=== PATIENT | female | born 1945 | race Caucasian/White ===

== ENCOUNTER 2017-12-10 18:02 | Emergency (ER) | payer BC ==
[2017-12-10] MEDS ORDERED: HYDROCODONE/APAP 10/325 TAB ONE (19:04)
--- NOTE | 2017-12-10 20:13 | ER ---
Nurse's Notes [facility] Name: Mariana Flor Age: 72 yrs Sex: Female : 1945 Arrival Date: 12/10/2017 Time: 18:06 Bed 24 Private MD: Speedy Krause H Diagnosis: Pain in right upper arm-muscloskeletal pain Presentation: 12/10 18:15 Presenting complaint: Patient states: " I fell about 4 months ago in the tub and hurt ph my arm. It wasn't broken but it still gives me pain sometimes. It really started hurting bad yesterday. Usually I take Tylenol 3 for the pain but it hasn't helped at all today." Pt reports pain in R upper arm. Transition of care: patient was not received from another setting of care. Onset of symptoms was December 10, 2017. Care prior to arrival: None. 18:15 Method Of Arrival: Ambulatory ph 18:15 Acuity: YUDELKA 4 ph Historical: - Allergies: 18:21 Compazine; ph 18:21 Latex, Natural Rubber; ph 18:21 Levofloxacin; ph 18:21 Phenergan; ph 18:21 Toradol; ph - Home Meds: 18:21 amoxicillin 875 mg Oral tab 1 tab every 12 hours [Active]; Bumex 2 MG Oral daily ph [Active]; Effient 5 mg Oral tab once daily [Active]; Xanax 2 mg Oral tab 1 tab PRN [Active]; - PMHx: 18:21 Anxiety; CAD; Hyperlipidemia; Migraines; ph - PSHx: 18:21 Hysterectomy; Left Knee; Heart stents; ph - Immunization history:: Adult Immunizations unknown. - Social history:: Smoking status: Patient/guardian denies using tobacco. Screenin:39 Abuse screen: Denies threats or abuse. Denies injuries from another. Nutritional kr2 screening: No deficits noted. Tuberculosis screening: No symptoms or risk factors identified. Fall Risk None identified. Assessment: 18:35 General: Appears in no apparent distress. uncomfortable, well groomed, well developed, kr2 well nourished, Behavior is calm, cooperative, appropriate for age. Pain: Complains of pain in right shoulder Pain radiates to right arm Pain currently is 10 out of 10 on a pain scale. Quality of pain is described as aching. Neuro: Level of Consciousness is awake, alert, obeys commands, Oriented to person, place, time, situation, Appropriate for age. Cardiovascular: Denies chest pain, Capillary refill < 3 seconds in bilateral fingers Patient's skin is warm and dry. Respiratory: Airway is patent Respiratory effort is even, unlabored, Respiratory pattern is regular, symmetrical. GI: Abdomen is flat, non-distended. GI: Reports nausea. : No signs and/or symptoms were reported regarding the genitourinary system. EENT: Oral mucosa is moist. Derm: Skin is intact, is healthy with good turgor, Skin is pink, warm \\T\\ dry. Musculoskeletal: Circulation, motion, and sensation intact. Range of motion: intact in right shoulder. 20:16 Reassessment: Patient appears in no apparent distress at this time. Patient and/or kr2 family updated on plan of care and expected duration. Pain level reassessed. Patient is alert, oriented x 3, equal unlabored respirations, skin warm/dry/pink. Patient states feeling better. Vital Signs: 18:18 BP 152 / 83; Pulse 80; Resp 22; Temp 98.1; Pulse Ox 98% on R/A; Weight 62.6 kg; Height ph 5 ft. 2 in. (157.48 cm); Pain 10/10; 20:16 BP 125 / 53; Pulse 78; Resp 15; Pulse Ox 99% on R/A; kr2 18:18 Body Mass Index 25.24 (62.60 kg, 157.48 cm) ph ED Course: 18:06 Patient arrived in ED. as 18:06 Speedy Krause DO is Private Physician. as 18:18 Triage completed. ph 18:19 Arm band placed on. ph 18:23 Kylah Benavides, JAYRO is Primary Nurse. kr2 18:25 Richmond Ness NP is PHCP. pm1 18:25 Amilcar Owens MD is Attending Physician. pm1 18:39 Patient has correct armband on for positive identification. Bed in low position. Call kr2 light in reach. Side rails up X2. Pulse ox on. NIBP on. Door closed. Warm blanket given. Head of bed elevated. 20:10 Kevin Randall MD is Referral Physician. pm1 20:17 No provider procedures requiring assistance completed. Patient did not have IV access kr2 during this emergency room visit. Administered Medications: 18:46 Drug: [place] 10 mg-325 mg 1 tabs Route: PO; kr2 20:15 Follow up: Response: No adverse reaction; Pain is decreased kr2 Outcome: 20:12 Discharge ordered by MD. pm1 20:17 Discharged to home ambulatory, with family. kr2 20:17 Condition: good 20:17 Discharge instructions given to patient, family, Instructed on discharge instructions, follow up and referral plans. medication usage, Demonstrated understanding of instructions, follow-up care, medications, Prescriptions given X 2. 20:17 Patient left the ED. kr2 Signatures: Linh Simmons Patricia, RN RN ph Richmond Ness NP PLUMBING ENGINEER pm1 Kylah Benavides RN RN kr2 Corrections: (The following items were deleted from the chart) 20:18 20:18 Response: No adverse reaction; Pain is decreased kr2 kr2
--- NOTE | 2017-12-10 20:13 | EDPHYS ---
Physician Documentation [facility] Name: Mariana Flor Age: 72 yrs Sex: Female : 1945 Arrival Date: 12/10/2017 Time: 18:06 Bed 24 Private MD: Speedy Krause H ED Physician Amilcar Owens HPI: 12/10 20:00 This 72 yrs old Female presents to ER via Ambulatory with complaints of Right pm1 Arm Pain. 20:00 The patient or guardian complains of pain. right upper arm. Context: The problem was pm1 sustained at home, resulted from a fall, The patient reports no decreased range of motion. The patient reports no obvious deformity. Onset: The symptoms/episode began/occurred 10/18/2017. Modifying factors: the symptoms are alleviated by tylenol #3. Modifying factors: The symptoms are aggravated by movement. Associated signs and symptoms: Pertinent negatives: chest pain, neck pain, shortness of breath, tingling, paresthesia. Severity of symptoms: in the emergency department the symptoms are actually worse. Treatment prior to arrival includes: no previous treatment. Patient was admitted for a fall on 10/18/2017 for syncope and collapse. Patient fell in the bathtub and injured her right arm and shoulder at that time. During hospitalization and ER visit, patient had a right shoulder xray and CT head and neck performed. Patient without any injury since then. Patient has had continued pain to her right arm in the same location since the injury and has been taking Tylenol #3 for the pain. Patient does not have anymore Tylenol #3. Historical: - Allergies: 18:21 Compazine; ph 18:21 Latex, Natural Rubber; ph 18:21 Levofloxacin; ph 18:21 Phenergan; ph 18:21 Toradol; ph - Home Meds: 18:21 amoxicillin 875 mg Oral tab 1 tab every 12 hours [Active]; Bumex 2 MG Oral daily ph [Active]; Effient 5 mg Oral tab once daily [Active]; Xanax 2 mg Oral tab 1 tab PRN [Active]; - PMHx: 18:21 Anxiety; CAD; Hyperlipidemia; Migraines; ph - PSHx: 18:21 Hysterectomy; Left Knee; Heart stents; ph - Immunization history:: Adult Immunizations unknown. - Social history:: Smoking status: Patient/guardian denies using tobacco. ROS: 20:00 Constitutional: Negative for fever, chills, and weight loss, Eyes: Negative for injury, pm1 pain, redness, and discharge, ENT: Negative for injury, pain, and discharge, Neck: Negative for injury, pain, and swelling, Cardiovascular: Negative for chest pain, palpitations, and edema, Respiratory: Negative for shortness of breath, cough, wheezing, and pleuritic chest pain, Abdomen/GI: Negative for abdominal pain, nausea, vomiting, diarrhea, and constipation, Back: Negative for injury and pain, : Negative for injury, bleeding, discharge, and swelling. 20:00 Skin: Negative for injury, rash, and discoloration, Neuro: Negative for headache, weakness, numbness, tingling, and seizure. 20:00 MS/extremity: Positive for pain, of the lateral aspect of right shoulder. Exam: 20:00 Constitutional: This is a well developed, well nourished patient who is awake, alert, pm1 and in no acute distress. Head/Face: Normocephalic, atraumatic. Chest/axilla: Normal chest wall appearance and motion. Nontender with no deformity. No lesions are appreciated. Cardiovascular: Regular rate and rhythm with a normal S1 and S2. No gallops, murmurs, or rubs. Normal PMI, no JVD. No pulse deficits. Respiratory: Lungs have equal breath sounds bilaterally, clear to auscultation and percussion. No rales, rhonchi or wheezes noted. No increased work of breathing, no retractions or nasal flaring. Abdomen/GI: Soft, non-tender, with normal bowel sounds. No distension or tympany. No guarding or rebound. No evidence of tenderness throughout. Back: No spinal tenderness. No costovertebral tenderness. Full range of motion. Skin: Warm, dry with normal turgor. Normal color with no rashes, no lesions, and no evidence of cellulitis. 20:00 Musculoskeletal/extremity: Extremities: grossly normal except: noted in the Deltoid tubercle of humerus: tenderness, There is no evidence of decreased ROM, deformity, ecchymosis, erythema, swelling, ROM: full active range of motion, in the right upper extremity, full passive range of motion, in the right upper extremity, Circulation is intact in all extremities. Vital Signs: 18:18 BP 152 / 83; Pulse 80; Resp 22; Temp 98.1; Pulse Ox 98% on R/A; Weight 62.6 kg; Height ph 5 ft. 2 in. (157.48 cm); Pain 10/10; 20:16 BP 125 / 53; Pulse 78; Resp 15; Pulse Ox 99% on R/A; kr2 18:18 Body Mass Index 25.24 (62.60 kg, 157.48 cm) ph MDM: 18:26 Patient medically screened. pm1 20:03 ED course: Improvement in pain with hydrocodone. 4/10 pain. pm1 20:09 Data reviewed: vital signs. Data interpreted: Pulse oximetry: on room air is 98 %. pm1 Interpretation: normal. Counseling: I had a detailed discussion with the patient and/or guardian regarding: the historical points, exam findings, and any diagnostic results supporting the discharge/admit diagnosis, the need for outpatient follow up, for definitive care, a orthopedic surgeon, to return to the emergency department if symptoms worsen or persist or if there are any questions or concerns that arise at home. Administered Medications: 18:46 Drug: [place] 10 mg-325 mg 1 tabs Route: PO; kr2 20:15 Follow up: Response: No adverse reaction; Pain is decreased kr2 Disposition: 12/10/17 20:12 Discharged to Home. Impression: Pain in right upper arm - muscloskeletal pain. - Condition is Stable. - Discharge Instructions: Musculoskeletal Pain. - Prescriptions for Tylenol- Codeine #3 300-30 mg Oral Tablet - take 1 tablet by ORAL route every 6 hours As needed; 20 tablet. Zofran 4 mg Oral Tablet - take 1 tablet by ORAL route every 12 hours As needed; 20 tablet. - Medication Reconciliation Form, Thank You Letter, Prescription Opioid Use form. - Follow up: Emergency Department; When: As needed; Reason: Worsening of condition. Follow up: Kevin Randall MD; When: 2 - 3 days; Reason: Recheck today's complaints, Continuance of care, Re-evaluation by your physician. - Problem is new. - Symptoms have improved. Addendum: 12/14/2017 07:27 Co-signature as Attending Physician, Amilcar Owens MD. g s Signatures: Angelica Paul RN RN ph Richmond Ness SHACKLER SHACKLER pm1 Amilcar Owens MD MD gs Kylah Benavides, JAYRO RN kr2
[2017-12-10 20:21] VITALS: TEMP 98.1
[2017-12-10 20:22] VITALS: BP 125/53; O2SAT 99
== END 2017-12-10 20:17 | disposition home or self-care (01) ==
LOC: ER 18:02
DX: M79.1 Myalgia (principal); W18.2XXA Fall in (into) shower or empty bathtub, initial encounter; Y93.E1 Activity, personal bathing and showering; Y92.002 Bathroom of unspecified non-institutional (private) residence as the place of occurrence of the external cause; Z88.5 Allergy status to narcotic agent; Z88.8 Allergy status to other drugs, medicaments and biological substances; Z88.1 Allergy status to other antibiotic agents; Z95.818 Presence of other cardiac implants and grafts; Z91.040 Latex allergy status; E78.5 Hyperlipidemia, unspecified; I25.10 Atherosclerotic heart disease of native coronary artery without angina pectoris; F41.9 Anxiety disorder, unspecified
CPT/HCPCS: 99283

== ENCOUNTER 2017-12-16 17:33 | Emergency (ER) | payer BC ==
[2017-12-16] MEDS ORDERED: predniSONE 20 MG TAB ONE (18:23)
[2017-12-16] MEDS ORDERED: DIPHENHYDRAMINE 25 MG TAB/CAP ONE (18:23)
--- NOTE | 2017-12-16 18:27 | RAD REPORT ---
EXAM DESCRIPTION: CT - Head Brain Wo Cont - 12/16/2017 6:15 pm CLINICAL HISTORY: Fall, head injury COMPARISON: 06/25/2017, 06/19/2016 TECHNIQUE: All CT scans are performed using dose optimization technique as appropriate and may inclu de automated exposure control or mA/KV adjustment according to patient size. FINDINGS: No intracranial hemorrhage, hydrocephalus or extra-axial fluid collection.No areas of brai n edema or evidence of midline shift. The paranasal sinuses and mastoids are clear. The calvarium is intact. IMPRESSION: No acute intracranial abnormality.
--- NOTE | 2017-12-16 18:32 | EDPHYS ---
Physician Documentation [facility] Name: Mariana Flor Age: 72 yrs Sex: Female : 1945 Arrival Date: 12/16/2017 Time: 17:36 Bed 6 Private MD: Speedy Krause H ED Physician Amilcar Owens HPI: 12/16 18:26 This 72 yrs old Female presents to ER via Wheelchair with complaints of Fall gs Injury. 18:26 Details of fall: The patient fell from seated position, out of a chair. Onset: The gs symptoms/episode began/occurred 4 day(s) ago. Associated injuries: The patient sustained injury to the head, abrasion, anterior aspect of right shoulder. Severity of symptoms: At their worst the symptoms were moderate, in the emergency department the symptoms are unchanged. The patient has experienced similar episodes in the past, multiple times, chronically. The patient has been recently seen by a physician: the patient's primary care provider, Dr. Krause with similar presenting complaints, was given a prescription for pain medications, 3rd encounter this week, pt has multiple falls and concern for pain med abuse. Historical: - Allergies: 17:39 Compazine; la1 17:39 Latex, Natural Rubber; la1 17:39 Levofloxacin; la1 17:39 Phenergan; la1 17:39 Toradol; la1 - PMHx: 17:39 Anxiety; CAD; Hyperlipidemia; Migraines; la1 - Immunization history:: Adult Immunizations up to date. - Social history:: Smoking status: Patient/guardian denies using tobacco. ROS: 18:26 Skin: Positive for rash, has rash face upper chest pinkish color nontender no fever, gs says started after using skin lotion. 18:26 All other systems are negative. Exam: 18:26 Head/Face: Normocephalic, atraumatic. ENT: Nares patent. No nasal discharge, no gs septal abnormalities noted. Tympanic membranes are normal and external auditory canals are clear. Oropharynx with no redness, swelling, or masses, exudates, or evidence of obstruction, uvula midline. Mucous membranes moist. 18:26 Neck: Trachea midline, no thyromegaly or masses palpated, and no cervical lymphadenopathy. Supple, full range of motion without nuchal rigidity, or vertebral point tenderness. No Meningismus. Chest/axilla: Normal chest wall appearance and motion. Nontender with no deformity. No lesions are appreciated. Cardiovascular: Regular rate and rhythm with a normal S1 and S2. No gallops, murmurs, or rubs. Normal PMI, no JVD. No pulse deficits. Respiratory: Lungs have equal breath sounds bilaterally, clear to auscultation and percussion. No rales, rhonchi or wheezes noted. No increased work of breathing, no retractions or nasal flaring. Abdomen/GI: Soft, non-tender, with normal bowel sounds. No distension or tympany. No guarding or rebound. No evidence of tenderness throughout. Back: No spinal tenderness. No costovertebral tenderness. Full range of motion. MS/ Extremity: Pulses equal, no cyanosis. Neurovascular intact. Full, normal range of motion. Neuro: Awake and alert, GCS 15, oriented to person, place, time, and situation. Cranial nerves II-XII grossly intact. Motor strength 5/5 in all extremities. Sensory grossly intact. Cerebellar exam normal. Normal gait. 18:26 Constitutional: The patient appears in no acute distress, alert. 18:26 Head/face: Noted is abrasion(s), that are mild, of the forehead. 18:26 Eyes: Pupils: constricted, bilaterally. 18:26 Skin: rash a moderate rash is noted, rash can be described as erythematous, macular, on the right supraclavicular area, right clavicle, left supraclavicular area, left clavicle, anterior aspect of right upper chest and anterior aspect of left upper chest. 18:26 Musculoskeletal/extremity: Joints: the right shoulder displays full rom no dislocation.gs Vital Signs: 17:39 BP 165 / 61; Pulse 83; Resp 16; Temp 98.4(TE); Pulse Ox 98% on R/A; Weight 64.86 kg; la1 Height 5 ft. 2 in. (157.48 cm); 18:45 BP 147 / 68; Pulse 80; Resp 14 S; Pulse Ox 98% on R/A; jl7 17:39 Body Mass Index 26.15 (64.86 kg, 157.48 cm) la1 MDM: 17:54 Patient medically screened. 18:26 Differential diagnosis: closed head injury, contusion, allergic reaction. Data gs reviewed: vital signs, nurses notes. 12/16 17:55 Order name: CT Head Brain wo Cont; Complete Time: 18:32 gs Administered Medications: 18:07 Drug: predniSONE 20 mg Route: PO; [facility] 19:00 Follow up: Response: No adverse reaction; No change in condition jl7 18:07 Drug: Benadryl 25 mg Route: PO; jl7 19:00 Follow up: Response: No adverse reaction; No change in condition 7 Disposition: 12/16/17 18:31 Discharged to Home. Impression: Contusion of other part of head, Allergic contact dermatitis. - Condition is Stable. - Discharge Instructions: Head Injury, Adult, Head Injury, Pediatric. - Prescriptions for Prednisone 20 mg Oral Tablet - take 1 tablet by ORAL route once daily for 5 days; 5 tablet. Zyrtec 10 mg Oral Tablet - take 1 tablet by ORAL route once daily As needed; 20 tablet. - Medication Reconciliation Form, Thank You Letter, Antibiotic Education, Prescription Opioid Use form. - Follow up: Speedy Krause DO; When: 1 - 2 days; Reason: Re-evaluation by your physician. Signatures: Dispatcher [employer] EDBert Tamez RN RN la1 Lico Welch RN RN jl7 Amilcar Owens MD MD
--- NOTE | 2017-12-16 18:32 | ER ---
Nurse's Notes [facility] Name: Mariana Flor Age: 72 yrs Sex: Female : 1945 Arrival Date: 12/16/2017 Time: 17:36 Bed 6 Private MD: Speedy Krause H Diagnosis: Contusion of other part of head;Allergic contact dermatitis Presentation: 12/16 17:37 Presenting complaint: Patient states: On Monday night I fell off a barstool in my la1 kitchen and hurt my right shoulder and my head. I saw my PCP on and he gave me some pain medicine. Pt denies LOC. Transition of care: patient was not received from another setting of care. Onset of symptoms was December 16, 2017. Care prior to arrival: None. 17:37 Method Of Arrival: Wheelchair la1 17:37 Acuity: YUDELKA 3 la1 Historical: - Allergies: 17:39 Compazine; la1 17:39 Latex, Natural Rubber; la1 17:39 Levofloxacin; la1 17:39 Phenergan; la1 17:39 Toradol; la1 - PMHx: 17:39 Anxiety; CAD; Hyperlipidemia; Migraines; la1 - Immunization history:: Adult Immunizations up to date. - Social history:: Smoking status: Patient/guardian denies using tobacco. Screenin:45 Abuse screen: Denies threats or abuse. Nutritional screening: No deficits noted. jl7 Tuberculosis screening: No symptoms or risk factors identified. Fall Risk None identified. Assessment: 17:45 General: Appears in no apparent distress. uncomfortable, Behavior is cooperative, jl7 crying. Pain: Complains of pain in right shoulder Pain does not radiate. Pain currently is 9 out of 10 on a pain scale. Quality of pain is described as aching, Pain began 2-3 days ago. Is continuous. Neuro: Level of Consciousness is awake, alert, obeys commands, Oriented to person, place, time, situation. Cardiovascular: Patient's skin is warm and dry. Respiratory: Airway is patent Respiratory effort is even, unlabored, Respiratory pattern is regular, symmetrical. Derm: pt's skin from right side of neck down, across chest to bilateral breast noted to be red and hot to touch. Pt reports putting hydrocortisone cream on the area. 17:54 Reassessment: Provider at bedside discussing plan of care. ae1 18:45 Reassessment: No changes from previously documented assessment. Patient and/or family jl7 updated on plan of care and expected duration. Pain level reassessed. Patient is alert, oriented x 3, equal unlabored respirations, skin warm/dry/pink. Patient states symptoms have not improved. Vital Signs: 17:39 BP 165 / 61; Pulse 83; Resp 16; Temp 98.4(TE); Pulse Ox 98% on R/A; Weight 64.86 kg; la1 Height 5 ft. 2 in. (157.48 cm); 18:45 BP 147 / 68; Pulse 80; Resp 14 S; Pulse Ox 98% on R/A; jl7 17:39 Body Mass Index 26.15 (64.86 kg, 157.48 cm) la1 ED Course: 17:36 Patient arrived in ED. mr 17:36 Speedy Krause DO is Private Physician. mr 17:38 Triage completed. la1 17:39 Arm band placed on left wrist. la1 17:42 Amilcar Owens MD is Attending Physician. gs 17:45 Patient has correct armband on for positive identification. Bed in low position. Call jl7 light in reach. Side rails up X 1. Pulse ox on. NIBP on. 17:56 Lico Welch, JAYRO is Primary Nurse. jl7 18:15 CT Head Brain wo Cont In Process Unspecified. EDMS 18:16 CT completed. Patient tolerated procedure well. Patient moved back from CT. bq 18:31 Speedy Krause DO is Referral Physician. gs 19:20 No provider procedures requiring assistance completed. Patient did not have IV access jl7 during this emergency room visit. Administered Medications: 18:07 Drug: predniSONE 20 mg Route: PO; jl7 19:00 Follow up: Response: No adverse reaction; No change in condition jl7 18:07 Drug: Benadryl 25 mg Route: PO; jl7 19:00 Follow up: Response: No adverse reaction; No change in condition jl7 Outcome: 18:31 Discharge ordered by . gs 19:20 Discharged to home ambulatory. jl7 19:20 Condition: stable 19:20 Discharge instructions given to patient, Instructed on discharge instructions, follow up and referral plans. medication usage, Demonstrated understanding of instructions, follow-up care, medications, Prescriptions given X 2. 19:21 Patient left the ED. jl7 Signatures: Dispatcher [employer] RICO CastilloEstephania RogerconnorMaria T Lee RN RN la1 Marco Antonio Shukla RN RN ae1 Lico Welch RN RN jl7 Amilcar Owens MD MD
[2017-12-16 19:24] VITALS: TEMP 98.4; O2SAT 98
[2017-12-16 19:26] VITALS: BP 147/68
== END 2017-12-16 19:21 | disposition home or self-care (01) ==
LOC: ER 17:33
DX: S00.83XA Contusion of other part of head, initial encounter (principal); L23.9 Allergic contact dermatitis, unspecified cause; W07.XXXA Fall from chair, initial encounter; Y93.9 Activity, unspecified; Y92.009 Unspecified place in unspecified non-institutional (private) residence as the place of occurrence of the external cause; Z88.1 Allergy status to other antibiotic agents; Z88.5 Allergy status to narcotic agent; Z88.8 Allergy status to other drugs, medicaments and biological substances; Z91.040 Latex allergy status
CPT/HCPCS: 70450; 99284; J7512

== ENCOUNTER 2018-03-04 21:54 | Emergency (ER) | payer BC ==
--- NOTE | 2018-03-04 23:30 | ER ---
Nurse's Notes [facility] Name: Mariana Flor Age: 72 yrs Sex: Female : 1945 Arrival Date: 03/04/2018 Time: 21:57 Bed 19 Private MD: Speedy Krause H Diagnosis: Acute headache. S/P Fall Presentation: 03/04 22:20 Presenting complaint: Patient states: pt has been having a headache for the last 4 tl3 days, has a hx of migraines, unable to sleep for the last 2 days, fell off of her bed and hit the right side of her forehead on the carpet, no abrasion or hematoma noted( pt has area in center of forehead that has rash, being treated). Transition of care: patient was not received from another setting of care. Onset of symptoms was March 01, 2018. Risk Assessment: Do you want to hurt yourself or someone else?. Initial Sepsis Screen: Does the patient meet any 2 criteria? No. Patient's initial sepsis screen is negative. Does the patient have a suspected source of infection? No. Patient's initial sepsis screen is negative. Care prior to arrival: Medication(s) given: Tylenol. 22:20 Method Of Arrival: Wheelchair tl3 22:20 Acuity: YUDELKA 3 tl3 Triage Assessment: 22:25 General: Appears uncomfortable, slender, well groomed, well developed, well nourished, tl3 Behavior is calm, cooperative, appropriate for age. Pain: Complains of pain in headache Pain currently is 10 out of 10 on a pain scale. Historical: - Allergies: 22:25 Compazine; tl3 22:25 Latex, Natural Rubber; tl3 22:25 Levofloxacin; tl3 22:25 Phenergan; tl3 22:25 Toradol; tl3 - Home Meds: 22:25 Effient 5 mg Oral tab once daily [Active]; Bumex 2 MG Oral daily [Active]; Xanax 2 mg tl3 Oral tab 1 tab PRN [Active]; - Immunization history:: Adult Immunizations up to date. - Social history:: Smoking status: Patient/guardian denies using tobacco, never smoked. - Ebola Screening: : Patient denies travel to an Ebola-affected area in the 21 days before illness onset. Screenin:51 Abuse screen: Denies threats or abuse. Denies injuries from another. Nutritional bp screening: No deficits noted. Tuberculosis screening: No symptoms or risk factors identified. Fall Risk Fall in past 12 months (25 points). No secondary diagnosis (0 pts). No IV (0 pts). Ambulatory Aid- None/Bed Rest/Nurse Assist (0 pts). Gait- Normal/Bed Rest/Wheelchair (0 pts) Mental Status- Oriented to own ability (0 pts). Total [place] Fall Scale indicates Low Risk Score (25-44 pts). Fall prevention measures have been instituted. Side Rails Up X 2 Placed close to Nursing Station Frequent Obs/Assesments occuring Family Present and informed to notify staff if they need to leave bedside As available Patient and Family Educated on Fall Prevention Program and strategies. Assessment: 22:50 General: PER PATIENT "I'M REALLY NERVOUS. I CALLED MY DOCTOR TO GET SOME TYLENOL 3 AND bp HE WOULDN'T CALL IT IN".. Pain: Complains of pain in head. Neuro: Level of Consciousness is awake, alert, obeys commands, Oriented to person, place, time, situation, Appropriate for age. Cardiovascular: No deficits noted. Respiratory: Airway is patent Respiratory effort is even, unlabored, Respiratory pattern is regular, symmetrical. GI: No deficits noted. : No deficits noted. EENT: No deficits noted. Derm: No deficits noted. Musculoskeletal: Circulation, motion, and sensation intact. Range of motion: intact in all extremities. Vital Signs: 22:25 BP 133 / 74; Pulse 81; Resp 18; Temp 98.0; Pulse Ox 100% on R/A; Weight 64.41 kg; tl3 Height 5 ft. 2 in. (157.48 cm); 23:50 BP 127 / 81; Pulse 71; Resp 16; Pulse Ox 100% ; bp 22:25 Body Mass Index 25.97 (64.41 kg, 157.48 cm) tl3 ED Course: 21:57 Patient arrived in ED. es 21:58 Speedy Krause DO is Private Physician. es 22:23 Triage completed. tl3 22:25 Arm band placed on right wrist. tl3 22:41 Rosie Cerna, RN is Primary Nurse. tl3 22:51 Patient has correct armband on for positive identification. Bed in low position. Call bp light in reach. Side rails up X2. Adult w/ patient. 23:18 Jaspreet Dickinson MD is Attending Physician. pkl 23:29 Speedy Krause DO is Referral Physician. pkl 23:51 No provider procedures requiring assistance completed. Patient did not have IV access bp during this emergency room visit. Administered Medications: 23:34 Drug: Demerol 50 mg Route: IM; Site: left gluteus; bp 23:50 Follow up: Response: Marked relief of symptoms bp 23:34 Drug: Zofran 4 mg Route: IM; Site: left gluteus; bp 23:49 Follow up: Response: Marked relief of symptoms bp Outcome: 23:30 Discharge ordered by . pkl 23:51 Discharged to home ambulatory, with family. bp 23:51 Condition: stable 23:51 Discharge instructions given to patient, Instructed on discharge instructions, follow up and referral plans. medication usage, Demonstrated understanding of instructions, follow-up care, medications, Prescriptions given X 1. 23:52 Patient left the ED. bp Signatures: Jaspreet Dickinson MD MD pkl Fina Gutierrez Brian, RN RN bp Rosie Cerna, RN RN tl3
--- NOTE | 2018-03-04 23:30 | EDPHYS ---
Physician Documentation [facility] Name: Mariana Flor Age: 72 yrs Sex: Female : 1945 Arrival Date: 03/04/2018 Time: 21:57 Bed 19 Private MD: Speedy Krause H ED Physician Jaspreet Dickinson HPI: 03/04 23:24 This 72 yrs old Female presents to ER via Wheelchair with complaints of Fall pkl Injury, Head Injury-Adult, No sleep x 2 days. 23:24 The patient complains of pain to the forehead. The patient describes the headache as pkl intermittent. Onset: The symptoms/episode began/occurred 4 day(s) ago. Associated signs and symptoms: Pertinent positives: unable to sleep. Patient apparent fell prior coming to ER. Said she fell off the bed and hit her forehead on the carpet. No LOC or vomiting. Historical: - Allergies: 22:25 Compazine; tl3 22:25 Latex, Natural Rubber; tl3 22:25 Levofloxacin; tl3 22:25 Phenergan; tl3 22:25 Toradol; tl3 - Home Meds: 22:25 Effient 5 mg Oral tab once daily [Active]; Bumex 2 MG Oral daily [Active]; Xanax 2 mg tl3 Oral tab 1 tab PRN [Active]; - Immunization history:: Adult Immunizations up to date. - Social history:: Smoking status: Patient/guardian denies using tobacco, never smoked. - Ebola Screening: : Patient denies travel to an Ebola-affected area in the 21 days before illness onset. ROS: 23:24 Eyes: Negative for injury, pain, redness, and discharge, ENT: Negative for injury, pkl pain, and discharge, Neck: Negative for injury, pain, and swelling, Cardiovascular: Negative for chest pain, palpitations, and edema, Respiratory: Negative for shortness of breath, cough, wheezing, and pleuritic chest pain, Abdomen/GI: Negative for abdominal pain, nausea, vomiting, diarrhea, and constipation, Back: Negative for injury and pain, : Negative for injury, bleeding, discharge, and swelling, MS/Extremity: Negative for injury and deformity, Skin: Negative for injury, rash, and discoloration. 23:24 Neuro: Positive for headache, Negative for loss of consciousness. Exam: 23:24 Head/Face: Normocephalic, atraumatic. Eyes: Pupils equal round and reactive to light, pkl extra-ocular motions intact. Lids and lashes normal. Conjunctiva and sclera are non-icteric and not injected. Cornea within normal limits. Periorbital areas with no swelling, redness, or edema. ENT: Nares patent. No nasal discharge, no septal abnormalities noted. Tympanic membranes are normal and external auditory canals are clear. Oropharynx with no redness, swelling, or masses, exudates, or evidence of obstruction, uvula midline. Mucous membranes moist. Neck: Trachea midline, no thyromegaly or masses palpated, and no cervical lymphadenopathy. Supple, full range of motion without nuchal rigidity, or vertebral point tenderness. No Meningismus. Chest/axilla: Normal chest wall appearance and motion. Nontender with no deformity. No lesions are appreciated. Cardiovascular: Regular rate and rhythm with a normal S1 and S2. No gallops, murmurs, or rubs. Normal PMI, no JVD. No pulse deficits. Respiratory: Lungs have equal breath sounds bilaterally, clear to auscultation and percussion. No rales, rhonchi or wheezes noted. No increased work of breathing, no retractions or nasal flaring. Abdomen/GI: Soft, non-tender, with normal bowel sounds. No distension or tympany. No guarding or rebound. No evidence of tenderness throughout. Back: No spinal tenderness. No costovertebral tenderness. Full range of motion. Skin: Warm, dry with normal turgor. Normal color with no rashes, no lesions, and no evidence of cellulitis. MS/ Extremity: Pulses equal, no cyanosis. Neurovascular intact. Full, normal range of motion. Neuro: Awake and alert, GCS 15, oriented to person, place, time, and situation. Cranial nerves II-XII grossly intact. Motor strength 5/5 in all extremities. Sensory grossly intact. Cerebellar exam normal. Normal gait. Vital Signs: 22:25 BP 133 / 74; Pulse 81; Resp 18; Temp 98.0; Pulse Ox 100% on R/A; Weight 64.41 kg; tl3 Height 5 ft. 2 in. (157.48 cm); 23:50 BP 127 / 81; Pulse 71; Resp 16; Pulse Ox 100% ; bp 22:25 Body Mass Index 25.97 (64.41 kg, 157.48 cm) tl3 MDM: 23:18 Patient medically screened. pkl 23:24 Data reviewed: vital signs, nurses notes. pkl Administered Medications: 23:34 Drug: Demerol 50 mg Route: IM; Site: left gluteus; bp 23:50 Follow up: Response: Marked relief of symptoms bp 23:34 Drug: Zofran 4 mg Route: IM; Site: left gluteus; bp 23:49 Follow up: Response: Marked relief of symptoms bp Disposition: 03/04/18 23:30 Discharged to Home. Impression: Acute headache. S/P Fall. - Condition is Stable. - Prescriptions for Tylenol- Codeine #3 300-30 mg Oral Tablet - take 1 tablet by ORAL route every 8 hours As needed; 15 tablet. - Medication Reconciliation Form, Thank You Letter, Antibiotic Education, Prescription Opioid Use form. - Follow up: Speedy Krause DO; When: 2 - 3 days; Reason: Re-evaluation by your physician. - Problem is new. - Symptoms have improved. Signatures: Jaspreet Dickinson MD MD pkl Elmer Padilla, RN RN bp Rosie Cerna RN RN tl3 Corrections: (The following items were deleted from the chart) 23:52 23:30 03/04/2018 23:30 Discharged to Home. Impression: Acute headache. S/P Fall. bp Condition is Stable. Forms are Medication Reconciliation Form, Thank You Letter, Antibiotic Education, Prescription Opioid Use. Follow up: Speedy Krause; When: 2 - 3 days; Reason: Re-evaluation by your physician. Problem is new. Symptoms have improved. pkl
[2018-03-04] MEDS ORDERED: MEPERIDINE HCL 50 MG/ML AMP ONE (23:31)
[2018-03-04] MEDS ORDERED: ONDANSETRON 4 MG/2 ML VIAL ONE (23:31)
[2018-03-05 00:57] VITALS: TEMP 98; O2SAT 100
[2018-03-05 00:58] VITALS: BP 127/81
== END 2018-03-04 23:52 | disposition home or self-care (01) ==
LOC: ER 21:54
DX: R51 Headache (principal); W06.XXXA Fall from bed, initial encounter; Y93.89 Activity, other specified; Y92.003 Bedroom of unspecified non-institutional (private) residence as the place of occurrence of the external cause; Z88.3 Allergy status to other anti-infective agents; Z88.5 Allergy status to narcotic agent; Z88.8 Allergy status to other drugs, medicaments and biological substances; Z91.040 Latex allergy status
CPT/HCPCS: 96372; 99283; J2175; J2405

== ENCOUNTER 2018-04-06 00:44 | Emergency (ER) | payer BC ==
[2018-04-06] MEDS ORDERED: DEXAMETHASONE 10 MG/ML VIAL ONE (03:00)
[2018-04-06] MEDS ORDERED: ONDANSETRON 4 MG/2 ML VIAL ONE (03:00)
[2018-04-06] MEDS ORDERED: METOCLOPRAMIDE 10 MG/2mL INJ ONE (03:00)
[2018-04-06] MEDS ORDERED: ACETAMINOPHEN 500 MG TAB ONE ×2 (03:00→03:44)
[2018-04-06] MEDS ORDERED: DIPHENHYDRAMINE 50 MG/ML VIAL ONE (03:00)
[2018-04-06] MEDS ORDERED: NA CHLORIDE 0.9% 1,000 ML ONE (03:01)
[2018-04-06 03:06] LABS: Absolute Lymphocytes (CBC) 2.4 K/uL (0.7-4.9); Absolute Monocytes 0.6 K/uL (0.1-1.3); Absolute Neutrophil 4.3 K/uL (1.8-8.0); Basophils % 1.2 % (0-1.3); Hematocrit 34.6 % (36.0-45.0); Lymphocytes % 31.6 % (15.3-44.8); MCH 30.2 pg (27.0-35.0); MCV 88.2 fL (80-100); MPV 9.4 fL (7.6-11.3); Monocytes % 8.5 % (3.3-12.3); RBC Red Blood Cell Count 3.92 M/uL (3.86-4.86)
[2018-04-06 03:12] LABS: Potassium 4.1 mmol/L (3.5-5.1)
--- NOTE | 2018-04-06 04:23 | EDPHYS ---
Physician Documentation [facility] Name: Mariana Flor Age: 73 yrs Sex: Female : 1945 Arrival Date: 04/06/2018 Time: 00:44 Bed 5 Private MD: ED Physician Scar Leroy HPI: 04/06 19:34 This 73 yrs old Female presents to ER via Wheelchair with complaints of wa Headache, Ear Pain, Nausea. 19:34 The patient complains of pain to the right sided. also involves the R ear. The patient wa describes the headache as aching, throbbing. Onset: The symptoms/episode began/occurred 4 day(s) ago. Associated signs and symptoms: Pertinent positives: nausea, Pertinent negatives: dizziness, fever, Photophobia vomiting. Severity of symptoms: At its worst the pain was moderate, in the emergency department the pain is actually worse, moderately. Headache History: The patient has had previous headaches and this one is similar to previous episodes. The symptoms are alleviated by nothing. the symptoms are aggravated by nothing. The patient has experienced similar episodes in the past, multiple times. The patient has not recently seen a physician. Historical: - Allergies: 01:31 Latex, Natural Rubber; tl2 01:31 Compazine; tl2 01:31 Levofloxacin; tl2 01:31 Phenergan; tl2 01:31 Toradol; tl2 - Home Meds: :31 Bumex 2 MG Oral daily [Active]; Effient 5 mg Oral tab once daily [Active]; Xanax 2 mg tl2 Oral tab 1 tab PRN [Active]; - PMHx: 01:31 Anxiety; tl2 - PSHx: 01:31 Hysterectomy; Knee surgery; Heart stents; tl2 - Immunization history:: Adult Immunizations up to date. - Social history:: Smoking status: Patient/guardian denies using tobacco. - Ebola Screening: : No symptoms or risks identified at this time. - Family history:: not pertinent. - Hospitalizations: : No recent hospitalization is reported. ROS: 19:39 Constitutional: Negative for fever, chills, and weight loss, Eyes: Negative for injury, wa pain, redness, and discharge, ENT: Negative for injury, pain, and discharge, Neck: Negative for injury, pain, and swelling, Cardiovascular: Negative for chest pain, palpitations, and edema, Respiratory: Negative for shortness of breath, cough, wheezing, and pleuritic chest pain, Abdomen/GI: Negative for abdominal pain, nausea, vomiting, diarrhea, and constipation, Back: Negative for injury and pain, MS/Extremity: Negative for injury and deformity, Skin: Negative for injury, rash, and discoloration, Psych: Negative for depression, anxiety, suicide ideation, homicidal ideation, and hallucinations. 19:39 Neuro: Positive for headache, nausea, Negative for altered mental status, dizziness, gait disturbance, loss of consciousness. Exam: 19:40 Constitutional: This is a well developed, well nourished patient who is awake, alert, wa and in no acute distress. Head/Face: Normocephalic, atraumatic. Eyes: Pupils equal round and reactive to light, extra-ocular motions intact. Lids and lashes normal. Conjunctiva and sclera are non-icteric and not injected. Cornea within normal limits. Periorbital areas with no swelling, redness, or edema. ENT: Nares patent. No nasal discharge, no septal abnormalities noted. Tympanic membranes are normal and external auditory canals are clear. Oropharynx with no redness, swelling, or masses, exudates, or evidence of obstruction, uvula midline. Mucous membranes moist. Neck: Trachea midline, no thyromegaly or masses palpated, and no cervical lymphadenopathy. Supple, full range of motion without nuchal rigidity, or vertebral point tenderness. No Meningismus. Cardiovascular: Regular rate and rhythm with a normal S1 and S2. No gallops, murmurs, or rubs. Normal PMI, no JVD. No pulse deficits. Respiratory: Lungs have equal breath sounds bilaterally, clear to auscultation and percussion. No rales, rhonchi or wheezes noted. No increased work of breathing, no retractions or nasal flaring. Abdomen/GI: Soft, non-tender, with normal bowel sounds. No distension or tympany. No guarding or rebound. No evidence of tenderness throughout. Back: No spinal tenderness. No costovertebral tenderness. Full range of motion. Skin: Warm, dry with normal turgor. Normal color with no rashes, no lesions, and no evidence of cellulitis. MS/ Extremity: Pulses equal, no cyanosis. Neurovascular intact. Full, normal range of motion. Psych: Awake, alert, with orientation to person, place and time. Behavior, mood, and affect are within normal limits. 19:40 Neuro: Orientation: is normal, Mentation: is normal, Memory: is normal, Cranial nerves: grossly normal, Cerebellar function: Romberg testing is negative, normal finger to nose testing, heel to rob testing is normal, able to perform alternating rapid hand movements, Motor: is normal, Gait: is steady. Vital Signs: 01:31 BP 183 / 82; Pulse 66; Resp 18; Temp 98.3(O); Pulse Ox 98% on R/A; Weight 67.13 kg; tl2 Height 5 ft. 2 in. (157.48 cm); Pain 10/10; 02:14 BP 194 / 86; Pulse 60; Resp 16; Pulse Ox 97% on R/A; mt 02:47 BP 114 / 76; Pulse 56; Resp 16; Pulse Ox 99% on R/A; mt 03:42 BP 161 / 77; Pulse 61; Resp 16; Pulse Ox 99% on R/A; mt 04:30 BP 143 / 75; Pulse 65; Resp 14; Pulse Ox 99% ; bp 01:31 Body Mass Index 27.07 (67.13 kg, 157.48 cm) tl2 MDM: 02:12 Patient medically screened. in 19:41 Differential diagnosis: TYLER. similar to previous. h/o same. will attempt control and wa reassess. Data reviewed: vital signs, nurses notes. Response to treatment: the patient's symptoms have resolved after treatment. Special discussion: complete resolution of TYLER with ED interventions. d/c with close neurology f/u. 04/06 02:27 Order name: Basic Metabolic Panel in 04/06 02:27 Order name: CBC with Diff 04/06 02:27 Order name: IV Saline Lock; Complete Time: 02:48 in 04/06 02:27 Order name: Labs collected and sent; Complete Time: 02:49 in Administered Medications: 02:45 Drug: Decadron - Dexamethasone 10 mg Route: IVP; Site: right forearm; jd3 03:53 Follow up: Response: Marked relief of symptoms bp 02:45 Drug: NS 0.9% 1000 ml Route: IV; Rate: 1 bolus; Site: right forearm; jd3 03:52 Follow up: IV Status: Completed infusion bp 02:45 Drug: Benadryl 12.5 mg Route: IVP; Site: right forearm; jd3 03:52 Follow up: Response: Marked relief of symptoms bp 02:45 Drug: Zofran 4 mg Route: IVP; Site: right forearm; jd3 03:52 Follow up: Response: Marked relief of symptoms bp 02:45 Drug: Tylenol 1000 mg Route: PO; jd3 03:52 Follow up: Response: Marked relief of symptoms bp 02:45 Drug: Reglan 5 mg Route: IVP; Site: right forearm; jd3 03:52 Follow up: Response: Marked relief of symptoms bp 04:30 Drug: COgentin 1 mg Route: IVP; Site: right antecubital; bp 04:39 Follow up: Response: Anxiety decreased bp Disposition: 04/06/18 04:23 Discharged to Home. Impression: Acute Headache. - Condition is Stable. - Discharge Instructions: General Headache Without Cause. - Medication Reconciliation Form, Thank You Letter, Antibiotic Education, Prescription Opioid Use form. - Follow up: Darrick Bazzi MD; When: 1 - 2 days; Reason: Recheck today's complaints. - Problem is new. - Symptoms have improved. - Notes: follow up with your doctor and rhe neurologist for further care Signatures: Dispatcher [employer] EDMS Alethea Rodriguez RN RN tl2 Scar Leroy MD MD wa Davies, Jonathon, RN RN jElmer Cerrato RN RN bp Corrections: (The following items were deleted from the chart) 04:42 04:23 04/06/2018 04:23 Discharged to Home. Impression: Acute Headache. Condition is bp Stable. Forms are Medication Reconciliation Form, Thank You Letter, Antibiotic Education, Prescription Opioid Use. Follow up: Darrick Bazzi; When: 1 - 2 days; Reason: Recheck today's complaints. Problem is new. Symptoms have improved. lucy
--- NOTE | 2018-04-06 04:23 | ER ---
Nurse's Notes [facility] Name: Mariana Flor Age: 73 yrs Sex: Female : 1945 Arrival Date: 04/06/2018 Time: 00:44 Bed 5 Private MD: Diagnosis: Acute Headache Presentation: 04/06 01:29 Presenting complaint: Patient states: Pt c/o migraines and right ear pain x 2 days. tl2 Reports nausea and fever. Transition of care: patient was not received from another setting of care. Onset of symptoms was April 03, 2018. Risk Assessment: Do you want to hurt yourself or someone else? Patient reports no desire to harm self or others. Initial Sepsis Screen: Does the patient meet any 2 criteria? No. Patient's initial sepsis screen is negative. Does the patient have a suspected source of infection? No. Patient's initial sepsis screen is negative. Care prior to arrival: None. 01:29 Method Of Arrival: Wheelchair tl2 01:29 Acuity: YUDELKA 3 tl2 Triage Assessment: 01:31 Headache History: Denies prior headaches. General: Appears in no apparent distress. tl2 comfortable, Behavior is calm, cooperative, appropriate for age. Pain: Complains of pain in headache. Neuro: Level of Consciousness is awake, alert, obeys commands, Oriented to person, place, time, situation. 01:45 Pain: Pain currently is 9 out of 10 on a pain scale. Pain began gradually, Also bp complains of nausea. Historical: - Allergies: 01: Latex, Natural Rubber; tl2 01:31 Compazine; tl2 01:31 Levofloxacin; tl2 01:31 Phenergan; tl2 01:31 Toradol; tl2 - Home Meds: :31 Bumex 2 MG Oral daily [Active]; Effient 5 mg Oral tab once daily [Active]; Xanax 2 mg tl2 Oral tab 1 tab PRN [Active]; - PMHx: :31 Anxiety; tl2 - PSHx: :31 Hysterectomy; Knee surgery; Heart stents; tl2 - Immunization history:: Adult Immunizations up to date. - Social history:: Smoking status: Patient/guardian denies using tobacco. - Ebola Screening: : No symptoms or risks identified at this time. - Family history:: not pertinent. - Hospitalizations: : No recent hospitalization is reported. Screenin:33 Abuse screen: Denies threats or abuse. Nutritional screening: No deficits noted. tl2 Tuberculosis screening: No symptoms or risk factors identified. Fall Risk None identified. Assessment: 02:15 General: Appears in no apparent distress. comfortable, Behavior is cooperative, bp appropriate for age, anxious. Pain: Complains of pain in head. Neuro: Level of Consciousness is awake, alert, obeys commands, Oriented to person, place, time, situation, Appropriate for age. Cardiovascular: No deficits noted. Respiratory: Airway is patent Respiratory effort is even, unlabored, Respiratory pattern is regular, symmetrical. GI: No signs and/or symptoms were reported involving the gastrointestinal system. : No signs and/or symptoms were reported regarding the genitourinary system. EENT: No deficits noted. Derm: No deficits noted. Musculoskeletal: Circulation, motion, and sensation intact. Range of motion: intact in all extremities. 04:39 Reassessment: PT D/C HOME AMBULATORY WITH FAMILY, DX WITH ACUTE HEADACHE. bp Vital Signs: 01:31 BP 183 / 82; Pulse 66; Resp 18; Temp 98.3(O); Pulse Ox 98% on R/A; Weight 67.13 kg; tl2 Height 5 ft. 2 in. (157.48 cm); Pain 10/10; 02:14 BP 194 / 86; Pulse 60; Resp 16; Pulse Ox 97% on R/A; mt 02:47 BP 114 / 76; Pulse 56; Resp 16; Pulse Ox 99% on R/A; mt 03:42 BP 161 / 77; Pulse 61; Resp 16; Pulse Ox 99% on R/A; mt 04:30 BP 143 / 75; Pulse 65; Resp 14; Pulse Ox 99% ; bp 01:31 Body Mass Index 27.07 (67.13 kg, 157.48 cm) tl2 ED Course: 00:44 Patient arrived in ED. ds1 01:30 Triage completed. tl2 01:31 Arm band placed on right wrist. tl2 01:33 Patient has correct armband on for positive identification. tl2 02:10 Elmer Padilla, JAYRO is Primary Nurse. bp 02:12 Scar Leroy MD is Attending Physician. wa 02:45 Inserted saline lock: 20 gauge in right forearm, using aseptic technique. Blood jd3 collected. 04:22 Darrick Bazzi MD is Referral Physician. wa 04:40 No provider procedures requiring assistance completed. IV discontinued, intact, bp bleeding controlled, No redness/swelling at site. Pressure dressing applied. Administered Medications: 02:45 Drug: Decadron - Dexamethasone 10 mg Route: IVP; Site: right forearm; jd3 03:53 Follow up: Response: Marked relief of symptoms bp 02:45 Drug: NS 0.9% 1000 ml Route: IV; Rate: 1 bolus; Site: right forearm; jd3 03:52 Follow up: IV Status: Completed infusion bp 02:45 Drug: Benadryl 12.5 mg Route: IVP; Site: right forearm; jd3 03:52 Follow up: Response: Marked relief of symptoms bp 02:45 Drug: Zofran 4 mg Route: IVP; Site: right forearm; jd3 03:52 Follow up: Response: Marked relief of symptoms bp 02:45 Drug: Tylenol 1000 mg Route: PO; jd3 03:52 Follow up: Response: Marked relief of symptoms bp 02:45 Drug: Reglan 5 mg Route: IVP; Site: right forearm; jd3 03:52 Follow up: Response: Marked relief of symptoms bp 04:30 Drug: COgentin 1 mg Route: IVP; Site: right antecubital; bp 04:39 Follow up: Response: Anxiety decreased bp Outcome: 04:23 Discharge ordered by . wa 04:40 Discharged to home ambulatory, with family. bp 04:40 Condition: stable 04:40 Discharge instructions given to patient, Instructed on discharge instructions, follow up and referral plans. Demonstrated understanding of instructions, follow-up care. 04:42 Patient left the ED. bp Signatures: Radha Rock ds1 Alethea Rodriguez RN RN tl2 Leyid Colon mt, William, MD MD wa Davies, Jonathon, RN RN jd3 Elmer Padilla RN RN bp
[2018-04-06] MEDS ORDERED: BENZTROPINE 2 MG/2 ML VIAL ONE (04:31)
[2018-04-06 04:46] VITALS: TEMP 98.3
[2018-04-06 04:48] VITALS: O2SAT 99
[2018-04-06 04:50] VITALS: BP 143/75
== END 2018-04-06 04:42 | disposition home or self-care (01) ==
LOC: ER 00:44
DX: R51 Headache (principal); H92.01 Otalgia, right ear; Z88.5 Allergy status to narcotic agent; Z88.8 Allergy status to other drugs, medicaments and biological substances; Z88.1 Allergy status to other antibiotic agents; Z91.040 Latex allergy status
CPT/HCPCS: 36415; 80048; 85025; 99284; J0515; J1100; J2405; J2765; J7030

== ENCOUNTER 2018-05-07 02:39 | Emergency (ER) | payer BC ==
[2018-05-07] MEDS ORDERED: CODEINE 30MG/APAP 300MG TAB ONE (03:14)
--- NOTE | 2018-05-07 04:57 | EDPHYS ---
Physician Documentation [facility] Name: Mariana Flor Age: 73 yrs Sex: Female : 1945 Arrival Date: 05/07/2018 Time: 02:40 Bed 19 Private MD: Speedy Krause H ED Physician Wai Sarmiento HPI: 05/07 03:00 This 73 yrs old Female presents to ER via Wheelchair with complaints of Pain ps1 All Over. 03:00 patient fell 2 days ago while doing laundry. On effient. Hit head. Has bilateral knee ps1 contusions, pain with ambulation. Pain moderate. Takes T3 at home. . Historical: - Allergies: 02:53 Compazine; bb 02:53 Latex, Natural Rubber; bb 02:53 Levofloxacin; bb 02:53 Phenergan; bb 02:53 Toradol; bb - Home Meds: 02:53 Bumex 2 MG Oral daily [Active]; Effient 5 mg Oral tab once daily [Active]; Xanax 2 mg bb Oral tab 1 tab PRN [Active]; - PMHx: 02:53 Anxiety; bb - PSHx: 02:53 Hysterectomy; Knee surgery; Heart stents; bb - Immunization history:: Adult Immunizations up to date. - Social history:: Smoking status: Patient/guardian denies using tobacco, Patient/guardian denies using alcohol, street drugs. - Ebola Screening: : No symptoms or risks identified at this time. ROS: 03:00 Constitutional: Negative for fever, chills, and weight loss, Eyes: Negative for injury, ps1 pain, redness, and discharge, Cardiovascular: Negative for chest pain, palpitations, and edema, Respiratory: Negative for shortness of breath, cough, wheezing, and pleuritic chest pain, Abdomen/GI: Negative for abdominal pain, nausea, vomiting, diarrhea, and constipation, Skin: Negative for injury, rash, and discoloration, Neuro: Negative for headache, weakness, numbness, tingling, and seizure. 03:00 MS/extremity: Positive for tenderness, of the left knee, and right knee. Exam: 03:02 Constitutional: This is a well developed, well nourished patient who is awake, alert, ps1 and in no acute distress. Head/Face: Normocephalic, atraumatic. Chest/axilla: Normal chest wall appearance and motion. Nontender with no deformity. No lesions are appreciated. Cardiovascular: Regular rate and rhythm. No gallops, murmurs, or rubs. Normal PMI, no JVD. No pulse deficits. Respiratory: Lungs have equal breath sounds bilaterally, clear to auscultation and percussion. No rales, rhonchi or wheezes noted. No increased work of breathing, no retractions or nasal flaring. Abdomen/GI: Soft, non-tender, with normal bowel sounds. No distension or tympany. No guarding or rebound. No evidence of tenderness throughout. Skin: Warm, dry with normal turgor. Normal color with no rashes, no lesions, and no evidence of cellulitis. 03:02 Musculoskeletal/extremity: Extremities: grossly normal except: noted in the left knee: contusion, erythema, hemosiderin c/w subacute injury to both knees, noted in the right leg: contusion, tenderness. Vital Signs: 02:53 BP 130 / 61; Pulse 80; Resp 18 S; Temp 97.8(O); Pulse Ox 98% on R/A; Weight 66.68 kg bb (R); Height 5 ft. 2 in. (157.48 cm) (R); Pain 10/10; 03:00 BP 120 / 62; Pulse 70; Resp 18; Pulse Ox 98% ; ea 04:00 BP 131 / 61; Pulse 60; Resp 18; Pulse Ox 97% ; ea 05:15 BP 115 / 61; Pulse 62; Resp 18; Temp 98; Pulse Ox 100% on R/A; Pain 7/10; ea 02:53 Body Mass Index 26.89 (66.68 kg, 157.48 cm) bb MDM: 03:05 Patient medically screened. ps1 04:57 Data reviewed: vital signs, nurses notes, old medical records, multiple ED visits ps1 radiologic studies, CT scan, plain films. Counseling: I had a detailed discussion with the patient and/or guardian regarding: the historical points, exam findings, and any diagnostic results supporting the discharge/admit diagnosis, radiology results. Medication response: Tylenol with codeine, minimal. . ED course: patient exhibiting drug seeking behavior. Patient was asking for other ED providers that will give her pain shots and opioid pain medications such as demerol, etc. I discussed what she usually takes for pain at home and she states that she takes tylenol 3. Patients pain was addressed with same. She has multiple complaints, all of which happened in past and do not appear to necessitate strong opioids. . 05/07 03:00 Order name: CT Head Brain wo Cont ps1 05/07 03:00 Order name: Knee Left 3 View XRAY ps1 05/07 03:00 Order name: Knee Right 3 View XRAY ps1 Administered Medications: 03:11 Drug: Tylenol #3 (300 mg-30 mg) 1 tablet Route: PO; ea 04:13 Follow up: Response: No adverse reaction; Pain is unchanged, physician notified ea Disposition: 05/07/18 04:57 Discharged to Home. Impression: Fall, Contusion, Bilateral knee pain, chronic pain. - Condition is Stable. - Discharge Instructions: Chronic Pain, Fall Prevention in the Home, Knee Pain. - Prescriptions for Tylenol- Codeine #3 300-30 mg Oral Tablet - take 2 tablet by ORAL route every 6 hours As needed; 30 tablet. - Medication Reconciliation Form, Thank You Letter, Antibiotic Education, Prescription Opioid Use form. - Follow up: Speedy Krause DO; When: As needed; Reason: Recheck today's complaints, Continuance of care, Re-evaluation by your physician. Follow up: Emergency Department; When: As needed; Reason: Worsening of condition. - Problem is an ongoing problem. - Symptoms are unchanged. Signatures: Dispatcher [employer] EDJaaj Velasquez RN RN bb Antunez, Elena, RN RN ea Singer, Phillip, MD MD ps1 Corrections: (The following items were deleted from the chart) 05:18 04:57 05/07/2018 04:57 Discharged to Home. Impression: Fall; Contusion; Bilateral knee ea pain; chronic pain. Condition is Stable. Forms are Medication Reconciliation Form, Thank You Letter, Antibiotic Education, Prescription Opioid Use. Follow up: Speedy Krause; When: As needed; Reason: Recheck today's complaints, Continuance of care, Re-evaluation by your physician. Follow up: Emergency Department; When: As needed; Reason: Worsening of condition. Problem is an ongoing problem. Symptoms are unchanged. ps1
--- NOTE | 2018-05-07 04:57 | ER ---
Nurse's Notes [facility] Name: Mariana Flor Age: 73 yrs Sex: Female : 1945 Arrival Date: 05/07/2018 Time: 02:40 Bed 19 Private MD: Speedy Krause H Diagnosis: Fall;Contusion;Bilateral knee pain;chronic pain Presentation: 05/07 02:49 Presenting complaint: Patient states: she was doing laundry on Monday morning at 0300 bb and tripped over laundry baskets falling and hitting her head then landing on her knees she feels like she is hurting all over. Transition of care: patient was not received from another setting of care. Onset of symptoms was May 06, 2018. Risk Assessment: Do you want to hurt yourself or someone else? Patient reports no desire to harm self or others. Initial Sepsis Screen: Does the patient meet any 2 criteria? No. Patient's initial sepsis screen is negative. Does the patient have a suspected source of infection? No. Patient's initial sepsis screen is negative. Care prior to arrival: None. 02:49 Method Of Arrival: Wheelchair bb 02:49 Acuity: YUDELKA 4 bb Historical: - Allergies: 02:53 Compazine; bb 02:53 Latex, Natural Rubber; bb 02:53 Levofloxacin; bb 02:53 Phenergan; bb 02:53 Toradol; bb - Home Meds: 02:53 Bumex 2 MG Oral daily [Active]; Effient 5 mg Oral tab once daily [Active]; Xanax 2 mg bb Oral tab 1 tab PRN [Active]; - PMHx: 02:53 Anxiety; bb - PSHx: 02:53 Hysterectomy; Knee surgery; Heart stents; bb - Immunization history:: Adult Immunizations up to date. - Social history:: Smoking status: Patient/guardian denies using tobacco, Patient/guardian denies using alcohol, street drugs. - Ebola Screening: : No symptoms or risks identified at this time. Screenin:05 Abuse screen: Denies threats or abuse. Nutritional screening: No deficits noted. ea Tuberculosis screening: No symptoms or risk factors identified. Fall Risk None identified. Assessment: 03:03 General: Appears in no apparent distress. Behavior is cooperative. Pain: Complains of ea pain in left leg and left knee and right leg and right knee Pain currently is 10 out of 10 on a pain scale. Quality of pain is described as aching, Pain began 2-3 days ago. Is continuous. Neuro: Level of Consciousness is awake, alert, obeys commands, Oriented to person, place, time, situation. Cardiovascular: Patient's skin is warm and dry. Respiratory: Airway is patent Respiratory effort is even, unlabored, Respiratory pattern is regular, symmetrical, Breath sounds are clear bilaterally. GI: Abdomen is non-distended, Bowel sounds present X 4 quads. : No signs and/or symptoms were reported regarding the genitourinary system. Derm: Skin is pink, warm \\T\\ dry. Musculoskeletal: Circulation, motion, and sensation intact. Reports pain in left knee and right knee. 03:10 Reassessment: Medication administered, patient states, "is this all he is giving me?!, ea this isn't going to do crap! I need a shot! Where is Dr. Dickinson?!" at bedside calming patient. 03:51 Reassessment: Returned from radiology. ea 04:12 Reassessment: Patient and/or family updated on plan of care and expected duration. Pain ea level reassessed. Patient is alert, oriented x 3, equal unlabored respirations, skin warm/dry/pink. 04:17 Reassessment: Pt resting with eyes closed, when asked how she was doing, Pt stated "I ea told you that medicine wasn't going to do crap for my pain!" Respirations even and unlabored, chest expansions even and symmetrical. remains at bedside. 05:11 Reassessment: Patient and/or family updated on plan of care and expected duration. Pain ea level reassessed. Patient is alert, oriented x 3, equal unlabored respirations, skin warm/dry/pink. Discharge instructions given to patient, verbalized the understanding of instructions. Patient states feeling better. Patient states symptoms have improved. Vital Signs: 02:53 BP 130 / 61; Pulse 80; Resp 18 S; Temp 97.8(O); Pulse Ox 98% on R/A; Weight 66.68 kg bb (R); Height 5 ft. 2 in. (157.48 cm) (R); Pain 10/10; 03:00 BP 120 / 62; Pulse 70; Resp 18; Pulse Ox 98% ; ea 04:00 BP 131 / 61; Pulse 60; Resp 18; Pulse Ox 97% ; ea 05:15 BP 115 / 61; Pulse 62; Resp 18; Temp 98; Pulse Ox 100% on R/A; Pain 7/10; ea 02:53 Body Mass Index 26.89 (66.68 kg, 157.48 cm) ED Course: 02:40 Patient arrived in ED. ds1 02:40 Speedy Krause DO is Private Physician. ds1 02:47 Wai Sarmiento MD is Attending Physician. ps1 02:52 Triage completed. bb 02:53 Arm band placed on Patient placed in an exam room, on a stretcher, on pulse oximetry. bb Family accompanied patient. 03:03 Vivienne Horn, JAYRO is Primary Nurse. ea 03:05 Patient has correct armband on for positive identification. Bed in low position. Call ea light in reach. 03:33 CT completed. Patient tolerated procedure well. Patient moved to CT via stretcher. Patient moved to radiology via stretcher. Patient moved back from CT. 03:52 X-ray completed. Patient tolerated procedure well. kw 03:53 Knee Left 3 View XRAY In Process Unspecified. EDMS 03:53 Knee Right 3 View XRAY In Process Unspecified. EDMS 03:53 Patient moved back from radiology. kw 04:19 CT Head Brain wo Cont In Process Unspecified. EDMS 04:56 Speedy Krause DO is Referral Physician. ps1 05:14 No provider procedures requiring assistance completed. Patient did not have IV access ea during this emergency room visit. Administered Medications: 03:11 Drug: Tylenol #3 (300 mg-30 mg) 1 tablet Route: PO; ea 04:13 Follow up: Response: No adverse reaction; Pain is unchanged, physician notified ea Outcome: 04:57 Discharge ordered by MD. ps1 05:14 Discharged to home via ambulance, with significant other. ea 05:14 Condition: improved 05:14 Discharge instructions given to patient, Instructed on discharge instructions, follow up and referral plans. medication usage, Demonstrated understanding of instructions, follow-up care, medications, Prescriptions given X 2. 05:18 Patient left the ED. ea Signatures: Dispatcher [employer] [facility] Gregory Salas Radha Rock ds1 Jaja Meade, RN RN Madelyn Ochoa Elena, RN RN Wai Tolliver MD MD ps1
[2018-05-07 05:26] VITALS: BP 115/61; TEMP 98; O2SAT 100
--- NOTE | 2018-05-07 08:31 | RAD REPORT ---
EXAM DESCRIPTION: CT - Head Brain Wo Cont - 05/07/2018 7:04 am CLINICAL HISTORY: Head injury status post fall COMPARISON: November 2007 TECHNIQUE: Computed axial tomography of the head was obtained. IV contrast was not requested.A preli minary report was generated by [employer] and reviewed prior to this dictation All CT scans are performed using dose optimization technique as appropriate and may include automated exposure control or mA/KV adjustment according to patient size. FINDINGS: An intracranial bleed is not seen . The ventricles are normal in caliber. No extra-axial fluid collection is noted. Fluid within the sinuses/ mastoids is not seen. IMPRESSION: No acute intracranial abnormality is seen. If patient's symptoms persist MRI of the bra in would be recommended.
--- NOTE | 2018-05-07 08:33 | RAD REPORT ---
EXAM DESCRIPTION: RAD - Knee Left 3 View - 05/07/2018 3:52 am CLINICAL HISTORY: Left knee pain status post injury FINDINGS: No fracture or dislocation is seen. The bones the bones are osteoporotic. Chondrocalcinosis is seen. If the patient continues have symptoms to suggest an occult fracture, ligamentous or meniscal injury then MRI would be recommended
--- NOTE | 2018-05-07 08:36 | RAD REPORT ---
EXAM DESCRIPTION: RAD - Knee Right 3 View - 05/07/2018 3:52 am CLINICAL HISTORY: Left knee pain status post fall FINDINGS: No fracture or dislocation is seen. The bones are osteoporotic If the patient continues have symptoms to suggest an occult fracture, ligamentous or meniscal injury then an MRI would be recommended.
== END 2018-05-07 05:18 | disposition home or self-care (01) ==
LOC: ER 02:39
DX: S80.02XA Contusion of left knee, initial encounter (principal); M25.561 Pain in right knee; G89.29 Other chronic pain; W01.198A Fall on same level from slipping, tripping and stumbling with subsequent striking against other object, initial encounter; Y93.E2 Activity, laundry; Y92.9 Unspecified place or not applicable; Z95.818 Presence of other cardiac implants and grafts; Z88.1 Allergy status to other antibiotic agents; Z88.8 Allergy status to other drugs, medicaments and biological substances; Z91.040 Latex allergy status; Z91.048 Other nonmedicinal substance allergy status; F41.9 Anxiety disorder, unspecified
CPT/HCPCS: 70450; 99284

== ENCOUNTER 2018-10-18 01:54 | Emergency (ER) | payer BC ==
[2018-10-18] MEDS ORDERED: DIAZEPAM 2 MG TABLET ONE (02:53)
[2018-10-18] MEDS ORDERED: HYDROCODONE/APAP 5/325 MG TAB ONE (03:28)
[2018-10-18 03:43] LABS: Urine Bacteria <20 /HPF (<20); Urine Culture Reflex Order REFLEXED; Urine RBC NONE SEEN /HPF (NONE SEEN)
--- NOTE | 2018-10-18 03:43 | EDPHYS ---
Physician Documentation [facility] Name: Mariana Flor Age: 73 yrs Sex: Female : 1945 Arrival Date: 10/18/2018 Time: 01:57 Bed 7 Private MD: Speedy Krause H ED Physician Tulio Ghosh HPI: 10/18 02:12 This 73 yrs old Female presents to ER via Unassigned with complaints of Low rn Back Pain. 02:12 The patient presents with pain that is acute. The symptoms are located in the low back. rn The pain radiates. Onset: The symptoms/episode began/occurred last night. Modifying factors: The patient symptoms are alleviated by nothing, the patient symptoms are aggravated by movement. Associated signs and symptoms: Pertinent positives: none Pertinent negatives: abdominal pain, fever, incontinence, nausea, numbness, tingling, urinary retention, vomiting, weakness. Severity of symptoms: At their worst the symptoms were mild, in the emergency department the symptoms are unchanged. The patient has experienced similar episodes in the past. REports left lower back pain, radiates to left leg, reports lifting heavy marble last night, was very active today moving things, also reports fell last night but onto knees, is ambulatory but hurts to twist and move.. Historical: - Allergies: 02:16 Compazine; jd3 02:16 Latex, Natural Rubber; jd3 02:16 Levofloxacin; jd3 02:16 Phenergan; jd3 02:16 Toradol; jd3 - Home Meds: 02:16 Bumex 2 MG Oral daily [Active]; Effient 5 mg Oral tab once daily [Active]; Xanax 2 mg jd3 Oral tab 1 tab PRN [Active]; - PMHx: 02:16 Anxiety; jd3 - PSHx: 02:16 Hysterectomy; Knee surgery; Heart stents; jd3 - Immunization history:: Adult Immunizations up to date. - Social history:: Smoking status: Patient/guardian denies using tobacco. - Ebola Screening: : Patient negative for fever greater than or equal to 101.5 degrees Fahrenheit, and additional compatible Ebola Virus Disease symptoms. - Family history:: not pertinent. - Hospitalizations: : No recent hospitalization is reported. ROS: 02:12 Constitutional: Negative for fever, chills, and weight loss, Eyes: Negative for injury, rn pain, redness, and discharge, Neck: Negative for injury, pain, and swelling, Cardiovascular: Negative for chest pain, palpitations, and edema, Respiratory: Negative for shortness of breath, cough, wheezing, and pleuritic chest pain, Abdomen/GI: Negative for abdominal pain, nausea, vomiting, diarrhea, and constipation, Back: + left lower back pain MS/Extremity: Negative for injury and deformity, Skin: Negative for injury, rash, and discoloration, Neuro: Negative for headache, weakness, numbness, tingling, and seizure. Exam: 02:12 Constitutional: This is a well developed, well nourished patient who is awake, alert, rn and in no acute distress. Back: No spinal tenderness. No costovertebral tenderness. + left lower back tenderness without ecchymosis or skin changes Skin: Warm, dry with normal turgor. Normal color with no rashes, no lesions, and no evidence of cellulitis. MS/ Extremity: Pulses equal, no cyanosis. Neurovascular intact. Full, normal range of motion. Equal circumference. Neuro: Awake and alert, GCS 15, oriented to person, place, time, and situation. Cranial nerves II-XII grossly intact. Motor strength 5/5 in all extremities. Sensory grossly intact. Cerebellar exam normal. Vital Signs: 02:16 BP 127 / 73; Pulse 63; Resp 17 S; Temp 97.5(O); Pulse Ox 100% on R/A; Weight 62.6 kg jd3 (R); Height 5 ft. 2 in. (157.48 cm) (R); Pain 7/10; 02:59 BP 120 / 60; Pulse 58; Resp 17 S; Pulse Ox 100% on R/A; jd3 03:58 BP 107 / 51; Pulse 51; Resp 17 S; Pulse Ox 97% on R/A; jd3 02:16 Body Mass Index 25.24 (62.60 kg, 157.48 cm) jd3 MDM: 01:58 Patient medically screened. rn 03:42 Differential diagnosis: arthritis, strain, sciatica, Herniated disc UTI. Data reviewed: rn vital signs, nurses notes, lab test result(s), radiologic studies, CT scan, and as a result, I will discharge patient. Counseling: I had a detailed discussion with the patient and/or guardian regarding: the historical points, exam findings, and any diagnostic results supporting the discharge/admit diagnosis, lab results, radiology results, the need for outpatient follow up, to return to the emergency department if symptoms worsen or persist or if there are any questions or concerns that arise at home. Special discussion: I discussed with the patient/guardian in detail that at this point there is no indication for admission to the hospital. It is understood, however, that if the symptoms persist or worsen the patient needs to return immediately for re-evaluation. 10/18 02:10 Order name: Urine Microscopic Only rn 10/18 03:16 Order name: Urine Dipstick--Ancillary (enter results) ag4 10/18 02:10 Order name: CT Stone Protocol rn 10/18 03:53 Order name: Urine Culture EDIL 10/18 02:10 Order name: Urine Dipstick-Ancillary (obtain specimen); Complete Time: 03:22 rn Administered Medications: 02:45 Drug: Valium 2 mg Route: PO; jd3 03:59 Follow up: Response: No adverse reaction jd3 03:22 Drug: Cantril 5 mg-325 mg 1 tabs Route: PO; jd3 03:59 Follow up: Response: No adverse reaction jd3 Disposition: 10/18/18 03:43 Discharged to Home. Impression: Strain of muscle, fascia and tendon of lower back. - Condition is Stable. - Discharge Instructions: Back Pain, Adult, Muscle Strain. - Prescriptions for Cyclobenzaprine 10 mg Oral Tablet - take 1 tablet by ORAL route every 8 hours As needed; 20 tablet. - Medication Reconciliation Form, Thank You Letter, Antibiotic Education, Prescription Opioid Use form. - Follow up: Private Physician; When: As needed; Reason: Recheck today's complaints, Re-evaluation by your physician. - Problem is new. - Symptoms have improved. Signatures: Dispatcher [employer] [facility] Tulio Ghosh MD MD rn Davies, Jonathon, RN RN jd3 Corrections: (The following items were deleted from the chart) 04:00 03:43 10/18/2018 03:43 Discharged to Home. Impression: Strain of muscle, fascia and jd3 tendon of lower back. Condition is Stable. Forms are Medication Reconciliation Form, Thank You Letter, Antibiotic Education, Prescription Opioid Use. Follow up: Private Physician; When: As needed; Reason: Recheck today's complaints, Re-evaluation by your physician. Problem is new. Symptoms have improved. rn
--- NOTE | 2018-10-18 03:43 | ER ---
Nurse's Notes [facility] Name: Marinaa Flor Age: 73 yrs Sex: Female : 1945 Arrival Date: 10/18/2018 Time: 01:57 Bed 7 Private MD: Speedy Krause H Diagnosis: Strain of muscle, fascia and tendon of lower back Presentation: 10/18 02:13 Presenting complaint: Patient states: "I am having lower left sided back pain for 3 jd3 days. I did a lot of work today around the house, it might be that, or maybe it's a kidney infection.". Transition of care: patient was not received from another setting of care. Onset of symptoms was October 16, 2018. Risk Assessment: Do you want to hurt yourself or someone else? Patient reports no desire to harm self or others. Initial Sepsis Screen: Does the patient meet any 2 criteria? No. Patient's initial sepsis screen is negative. Does the patient have a suspected source of infection? No. Patient's initial sepsis screen is negative. Care prior to arrival: None. 02:13 Method Of Arrival: Wheelchair jd3 02:13 Acuity: YUDELKA 3 jd3 Historical: - Allergies: 02:16 Compazine; jd3 02:16 Latex, Natural Rubber; jd3 02:16 Levofloxacin; jd3 02:16 Phenergan; jd3 02:16 Toradol; jd3 - Home Meds: 02:16 Bumex 2 MG Oral daily [Active]; Effient 5 mg Oral tab once daily [Active]; Xanax 2 mg jd3 Oral tab 1 tab PRN [Active]; - PMHx: 02:16 Anxiety; jd3 - PSHx: 02:16 Hysterectomy; Knee surgery; Heart stents; jd3 - Immunization history:: Adult Immunizations up to date. - Social history:: Smoking status: Patient/guardian denies using tobacco. - Ebola Screening: : Patient negative for fever greater than or equal to 101.5 degrees Fahrenheit, and additional compatible Ebola Virus Disease symptoms. - Family history:: not pertinent. - Hospitalizations: : No recent hospitalization is reported. Screenin:19 Abuse screen: Denies threats or abuse. Nutritional screening: No deficits noted. jd3 Tuberculosis screening: No symptoms or risk factors identified. Fall Risk Fall in past 12 months (25 points). Ambulatory Aid- None/Bed Rest/Nurse Assist (0 pts). Gait- Weak (10 pts.). Mental Status- Oriented to own ability (0 pts). [place] Fall Scale indicates Low Risk Score (25-44 pts). Fall prevention measures have been instituted. Side Rails Up X 2 Placed close to Nursing Station Frequent Obs/Assesments occuring Family Present and informed to notify staff if they need to leave bedside. Assessment: 02:17 General: Appears in no apparent distress. uncomfortable, Behavior is cooperative, jd3 appropriate for age, anxious. Pain: Complains of pain in left low back Quality of pain is described as aching, tender. Neuro: Level of Consciousness is awake, alert, obeys commands, Oriented to person, place, time, situation, Appropriate for age Reports dizziness. Cardiovascular: Capillary refill < 3 seconds Patient's skin is warm and dry. Respiratory: Airway is patent Respiratory effort is even, unlabored, Respiratory pattern is regular, symmetrical. GI: No signs and/or symptoms were reported involving the gastrointestinal system. : Reports urinary frequency. EENT: No signs and/or symptoms were reported regarding the EENT system. Derm: Skin is intact, Skin is dry, Skin is normal, Skin temperature is warm. Musculoskeletal: Circulation, motion, and sensation intact. Range of motion: pt reports it hurts to stand or move because her back hurts to much. 03:00 Reassessment: Patient appears in no apparent distress at this time. No changes from jd3 previously documented assessment. Patient and/or family updated on plan of care and expected duration. Pain level reassessed. Patient is alert, oriented x 3, equal unlabored respirations, skin warm/dry/pink. assisted pt to bedpan. 03:58 Reassessment: Patient appears in no apparent distress at this time. Patient and/or d3 family updated on plan of care and expected duration. Pain level reassessed. Patient is alert, oriented x 3, equal unlabored respirations, skin warm/dry/pink. Patient states feeling better. Vital Signs: 02:16 BP 127 / 73; Pulse 63; Resp 17 S; Temp 97.5(O); Pulse Ox 100% on R/A; Weight 62.6 kg jd3 (R); Height 5 ft. 2 in. (157.48 cm) (R); Pain 7/10; 02:59 BP 120 / 60; Pulse 58; Resp 17 S; Pulse Ox 100% on R/A; jd3 03:58 BP 107 / 51; Pulse 51; Resp 17 S; Pulse Ox 97% on R/A; jd3 02:16 Body Mass Index 25.24 (62.60 kg, 157.48 cm) jd3 ED Course: 01:57 Patient arrived in ED. al2 01:57 Speedy Krause DO is Private Physician. al2 01:58 Tulio Ghosh MD is Attending Physician. rn 01:58 Lance Washington RN is Primary Nurse. jd3 02:14 Triage completed. jd3 02:17 Arm band placed on. jd3 02:19 Patient has correct armband on for positive identification. Bed in low position. Call jd3 light in reach. Side rails up X2. Adult w/ patient. 02:48 CT completed. Patient tolerated procedure well. Patient moved to CT. Patient moved back from CT. 02:49 CT Stone Protocol In Process Unspecified. EDMS Administered Medications: 02:45 Drug: Valium 2 mg Route: PO; jd3 03:59 Follow up: Response: No adverse reaction jd3 03:22 Drug: [place] 5 mg-325 mg 1 tabs Route: PO; jd3 03:59 Follow up: Response: No adverse reaction jd3 Outcome: 03:43 Discharge ordered by . rn 04:00 Patient left the ED. jd3 Signatures: Dispatcher [employer] EDMS Gregory Salas Tulio Ghosh MD MD rn Davies, Jonathon, RN RN jd3 Love, Angelica al
[2018-10-18 03:48] LABS: Urine Blood NEGATIVE (NEG); Urine Glucose NEGATIVE (NEG); Urine Protein NEGATIVE (NEG); Urine pH 5.5 (5.0-7.0)
[2018-10-18 04:05] VITALS: TEMP 97.5
[2018-10-18 04:08] VITALS: BP 107/51; O2SAT 97
--- NOTE | 2018-10-18 08:24 | RAD REPORT ---
EXAM DESCRIPTION: CT - Stone Protocol - 10/18/2018 2:49 am CLINICAL HISTORY: Abdominal pain. Lower abdominal pain. COMPARISON: 2016 TECHNIQUE: Computed axial tomography of the abdomen pelvis was obtained without oral or IV contrast. Lack of IV and oral contrast limits evaluation of solid organs, bowel, and vessels. Coronal reformat ang[place] images were obtained and reviewed. A preliminary report was generated by Cosyforyou and marcellus neal prior to dictation All CT scans are performed using dose optimization technique as appropriate and may include automated exposure control or mA/KV adjustment according to patient size. FINDINGS: A renal calculus is not seen. An ureteral calculus is not noted. A bladder calculus is not present. A small left renal cyst A small hepatic cyst is decreased in size from the prior exam Spleen, pancreas and adrenals appear grossly normal There is no evidence of diverticulitis. The appendix is not seen. A moderate amount of stool is prese nt throughout the colon IMPRESSION: Negative for a genitourinary calculus A moderate amount of stool throughout colon
== END 2018-10-18 04:00 | disposition home or self-care (01) ==
LOC: ER 01:54
DX: S39.012A Strain of muscle, fascia and tendon of lower back, initial encounter (principal); F41.9 Anxiety disorder, unspecified; Z88.5 Allergy status to narcotic agent; Z88.8 Allergy status to other drugs, medicaments and biological substances; Z91.040 Latex allergy status; Z91.048 Other nonmedicinal substance allergy status; Z95.818 Presence of other cardiac implants and grafts
CPT/HCPCS: 74176; 76377; 81003; 81015; 87086; 87088; 99284

== ENCOUNTER 2019-01-25 03:53 | Observation (INO) | payer BC ==
[2019-01-25 04:47] LABS: Absolute Lymphocytes (CBC) 1.5 K/uL (0.7-4.9); Absolute Monocytes 0.8 K/uL (0.1-1.3); Absolute Neutrophil 5.2 K/uL (1.8-8.0); Basophils % 1.2 % (0-1.3); Eosinophils % 0.8 % (0-4.4); Hematocrit 35.2 % (36.0-45.0); Lymphocytes % 19.9 % (15.3-44.8); MPV 10.2 fL (7.6-11.3); Monocytes % 10.1 % (3.3-12.3); RBC Red Blood Cell Count 3.98 M/uL (3.86-4.86)
[2019-01-25 04:51] LABS: Protime INR 0.91
[2019-01-25] MEDS ORDERED: MORPHINE 2 MG/ML SYR ONE ×2 (04:57→09:03)
[2019-01-25] MEDS ORDERED: ONDANSETRON 4 MG/2 ML VIAL ONE (04:58)
[2019-01-25 05:07] LABS: Albumin 4.1 g/dL (3.4-5.0); Bilirubin Direct 0.1 mg/dL (0-0.2); Bilirubin Total 0.5 mg/dL (0.2-1.0); Magnesium 2.1 mg/dL (1.8-2.4); Potassium 3.5 mmol/L (3.5-5.1); Protein, Total 7.5 g/dL (6.4-8.2); Troponin (Emerg Dept Use Only) 0.08 ng/mL (0.0-0.045)
--- NOTE | 2019-01-25 05:18 | ER ---
Nurse's Notes [facility] Name: Mariana Flor Age: 73 yrs Sex: Female : 1945 Arrival Date: 01/25/2019 Time: 04:06 Bed 6 Private MD: Diagnosis: Fall due to bumping against object;2-part fracture of surgical neck of humerus;Other chest pain-wall, elevated troponin Presentation: 01/25 04:08 Presenting complaint: EMS states: Pt tripped over step in her garage and fell forward tl2 hitting left side of face, chest and left arm. Pt would become hysterical and complain of pain but then other times use the left arm without issue. Bruising and swelling noted to left side of face. No bruising noted to left arm. Care prior to arrival: None. Mechanism of Injury: Fall from standing position. Trauma event details: Injury occurred in the [facility]. 04:08 Acuity: YUDELKA 2 tl2 04:08 Method Of Arrival: EMS: [facility] tl2 04:21 Transition of care: patient was not received from another setting of care. Onset of tl2 symptoms was January 25, 2019 at 03:20. Risk Assessment: Do you want to hurt yourself or someone else? Patient reports no desire to harm self or others. Initial Sepsis Screen: Does the patient meet any 2 criteria?. Initial Sepsis Screen: Does the patient have a suspected source of infection? No. Patient's initial sepsis screen is negative. Triage Assessment: 04:20 General: see triage assessment. tl2 Trauma Activation: Physician: ED Physician; Name: Martin; Notified At: 04:12; Arrived At: Physician: General Surgeon; Name: ; Notified At: 04:12; Arrived At: Physician: Radiology; Name: ; Notified At: 04:12; Arrived At: Physician: Respiratory; Name: ; Notified At: 04:12; Arrived At: Physician: Lab; Name: ; Notified At: 04:12; Arrived At: Historical: - Allergies: 04:16 Compazine; tl2 04:16 Latex, Natural Rubber; tl2 04:16 Levofloxacin; tl2 04:16 Phenergan; tl2 04:16 Toradol; tl2 - Home Meds: 04:16 Bumex 2 MG Oral daily [Active]; Xanax 2 mg Oral tab 1 tab PRN [Active]; Effient 5 mg tl2 Oral tab once daily [Active]; - PMHx: 04:16 Anxiety; tl2 - PSHx: 04:16 Heart stents; tl2 - Immunization history:: Adult Immunizations up to date. - Immunization history: Last tetanus immunization: unknown. - Social history:: Smoking status: Patient/guardian denies using tobacco. - Ebola Screening: : No symptoms or risks identified at this time. Screenin:16 Abuse screen: Denies threats or abuse. Nutritional screening: No deficits noted. tl2 Tuberculosis screening: No symptoms or risk factors identified. Fall risk At risk due to injury. 04:22 Fall Risk Fall in past 12 months (25 points). IV access (20 points). tl2 Primary Survey: 04:16 NO uncontrolled hemorrhage observed. A: The patient is alert. Airway: patent, No tl2 supplemental oxygen in use on arrival. Breathing/Chest: Respiratory pattern: regular, Respiratory effort: spontaneous, unlabored, Chest inspection: symmetrical rise and fall of the chest. Circulation: Cardiac rhythm: sinus rhythm Skin color: pink. Disability Alert. Exposure/Environment: All clothing and personal items were removed. Forensic evidence collection is not deemed to be indicated at this time. Items placed in patient belonging bag. There is no evidence of uncontrolled external bleeding. Obvious injury(ies) are noted at this time: bruising and swelling to right side of face. 05:08 Reassessment Airway Airway Patent Breathing/Chest Respiratory pattern Regular tl2 Respiratory effort Spontaneous Unlabored Breath sounds Clear Chest inspection Symmetrical Circulation Heart rhythm Sinus rhythm Disability Alert. Secondary Survey: 04:16 HEENT: Face Other bruising and swelling. Gastrointestinal: No deficits noted. : No tl2 deficits noted. Musculoskeletal: Circulation, motion, and sensation intact. Range of motion: limited in left shoulder. Injury Description: Bruise sustained to left jaw and left cheek is purple, was sustained 30-60 minutes ago. Assessment: 04:08 General: Appears in no apparent distress. uncomfortable, Behavior is anxious, crying. tl2 Pain: Complains of pain in left side of face, L chest wall, L arm. Neuro: Level of Consciousness is awake, alert, obeys commands, Oriented to person, place, time, situation, Denies dizziness, numbness. Cardiovascular: Patient's skin is warm and dry. Rhythm is sinus rhythm. Respiratory: Airway is patent Respiratory effort is even, unlabored, Respiratory pattern is regular, symmetrical. GI: No signs and/or symptoms were reported involving the gastrointestinal system. : No signs and/or symptoms were reported regarding the genitourinary system. Derm: Skin is pink, warm \\T\\ dry. Musculoskeletal: Circulation, motion, and sensation intact. Swelling present in left cheek and left jaw. Injury Description: Bruise sustained to left cheek and left jaw is purple, was sustained 30-60 minutes ago. 05:00 Reassessment: Patient appears in no apparent distress at this time. Patient and/or tl2 family updated on plan of care and expected duration. Pain level reassessed. Patient is alert, oriented x 3, equal unlabored respirations, skin warm/dry/pink. ice pack applied to L shoulder. 06:15 Reassessment: Patient appears in no apparent distress at this time. Patient and/or tl2 family updated on plan of care and expected duration. Pain level reassessed. Patient is alert, oriented x 3, equal unlabored respirations, skin warm/dry/pink. pt returned from CT, awaiting for results before administering aspirin. 06:59 Reassessment: pt unable to tolerate shoulder immobilizer at this time. Still waiting on tl2 CT results. 07:10 Reassessment: Patient is alert, oriented x 3, equal unlabored respirations, skin aa5 warm/dry/pink. Patient states feeling better. Awaiting CT results. Pt states "can I just rest and we'll try the sling in a little bit", inability to tolerate shoulder immobilizer placement as reported by JAYRO Claire. Will attempt later. Swelling noted to left side of face, mild purple bruising noted to left advent. . 08:25 Reassessment: Patient is alert, oriented x 3, equal unlabored respirations, skin aa5 warm/dry/pink. Awaiting CT results to be transported to Room 413, spoke to Dr. Limon (radiologist) and he states results will be posted shortly. Pt notified of wait time, verbalized understanding, pt requesting pain medication at this time, rates pain 8/10 on a pain scale to left shoulder, notified. . 09:30 Reassessment: Patient is alert, oriented x 3, equal unlabored respirations, skin aa5 warm/dry/pink. Patient states feeling better. Shoulder immobilizer applied to left arm. . Pain: Pain currently is 6 out of 10 on a pain scale. Vital Signs: 04:16 BP 183 / 88; Pulse 74; Resp 20; Temp 97.5(O); Pulse Ox 99% on R/A; Weight 77.11 kg; tl2 Height 5 ft. 4 in. (162.56 cm); Pain 10/10; 05:09 BP 196 / 87; Pulse 69; Resp 18; Pulse Ox 99% on R/A; Pain 5/10; tl2 06:14 BP 160 / 71; Pulse 66; Resp 19; Pulse Ox 96% on R/A; tl2 07:10 BP 160 / 77; Pulse 66; Resp 18 S; Pulse Ox 98% on R/A; Pain 6/10; aa5 08:10 BP 163 / 77; Pulse 68; Resp 16 S; Pulse Ox 98% on R/A; aa5 09:10 BP 160 / 79; Pulse 71; Resp 16 S; Temp 98.0(TE); Pulse Ox 98% on R/A; aa5 04:16 Body Mass Index 29.18 (77.11 kg, 162.56 cm) tl2 Kenan Coma Score: 04:16 Eye Response: spontaneous(4). Verbal Response: oriented(5). Motor Response: obeys tl2 commands(6). Total: 15. 05:09 Eye Response: spontaneous(4). Verbal Response: oriented(5). Motor Response: obeys tl2 commands(6). Total: 15. Trauma Score (Adult): 04:16 Eye Response: spontaneous(1); Verbal Response: oriented(1); Motor Response: obeys tl2 commands(2); Systolic BP: > 89 mm Hg(4); Respiratory Rate: 10 to 29 per min(4); Kenan Score: 15; Trauma Score: 12 05:09 Eye Response: spontaneous(1); Verbal Response: oriented(1); Motor Response: obeys tl2 commands(2); Systolic BP: > 89 mm Hg(4); Respiratory Rate: 10 to 29 per min(4); [place] Score: 15; Trauma Score: 12 07:10 Eye Response: spontaneous(1); Verbal Response: oriented(1); Motor Response: obeys aa5 commands(2); Systolic BP: > 89 mm Hg(4); Respiratory Rate: 10 to 29 per min(4); Kenan Score: 15; Trauma Score: 12 08:10 Eye Response: spontaneous(1); Verbal Response: oriented(1); Motor Response: obeys aa5 commands(2); Systolic BP: > 89 mm Hg(4); Respiratory Rate: 10 to 29 per min(4); Kenan Score: 15; Trauma Score: 12 09:10 Eye Response: spontaneous(1); Verbal Response: oriented(1); Motor Response: obeys aa5 commands(2); Systolic BP: > 89 mm Hg(4); Respiratory Rate: 10 to 29 per min(4); Kenan Score: 15; Trauma Score: 12 ED Course: 04:06 Patient arrived in ED. tl2 04:10 Inserted saline lock: 20 gauge in right wrist, using aseptic technique. Blood collected.tl2 04:12 Triage completed. tl2 04:14 Guy Salazar MD is Attending Physician. ambrocio 04:14 Initial lab(s) drawn, by me, sent to lab. EKG done, by ED staff, reviewed by Guy Salazar MD. 04:14 Patient maintains SpO2 saturation greater than 95% on room air. tl2 04:16 Patient has correct armband on for positive identification. Placed in gown. Bed in low tl2 position. Call light in reach. Side rails up X2. Adult w/ patient. Patient maintains SpO2 saturation greater than 95% on room air. 04:20 Arm band placed on right wrist. tl2 04:22 Thermoregulation: warm blanket given to patient. tl2 04:57 X-ray completed. Portable x-ray completed in exam room. Patient tolerated procedure kw well. 04:58 XRAY Chest (1 view) In Process Unspecified. EDMS 04:58 Shoulder Left (2 View) XRAY In Process Unspecified. EDMS 05:17 Renetta Cowan MD is Hospitalizing Provider. ambrocio 06:10 CT Facial Bones W/O Con In Process Unspecified. EDMS 06:17 CT Traumagram (Head C Spine CAP W Con) In Process Unspecified. EDMS 07:21 Vaishali Jean, RN is Primary Nurse. 08:31 Samanta Cordova MD is Hospitalizing Provider. ambrocio 09:25 No provider procedures requiring assistance completed. Patient admitted, IV remains in aa5 place. Administered Medications: 04:52 Drug: morphine 2 mg Route: IVP; Site: right wrist; tl2 05:18 Follow up: Response: No adverse reaction; Pain is decreased tl2 04:54 Drug: Zofran 4 mg Route: IVP; Site: right wrist; tl2 05:18 Follow up: Response: No adverse reaction tl2 05:28 Drug: morphine 2 mg Route: IVP; Site: right wrist; tl2 06:15 Follow up: Response: No adverse reaction; Pain is decreased tl2 06:58 Drug: morphine 2 mg Route: IVP; Site: right wrist; tl2 07:10 Follow up: Response: No adverse reaction; Pain is decreased aa5 08:56 Drug: Aspirin 81 mg Route: PO; aa5 09:45 Follow up: Response: No adverse reaction aa5 08:56 Drug: morphine 2 mg Route: IVP; Site: right hand; aa5 09:40 Follow up: Response: No adverse reaction; Pain is decreased aa5 Intake: 09:00 PO: 30ml (Water); Total: 30ml. aa5 Outcome: 05:18 Decision to Hospitalize by Provider. ambrocio 07:10 Patient's length of stay was not longer than 2 hours. aa5 09:25 Admitted to Tele accompanied by [facility], via stretcher, room 413, with chart, Report aa5 called to JAYRO Ferro 09:25 Condition: stable 09:25 Discharge instructions given to patient, family, Instructed on the need for admit, Demonstrated understanding of instructions. 09:49 Patient left the ED. iw Signatures: Dispatcher [employer] EDNJ Vaishali Jean, Guy Yan RN, ch, MD MD cha Williams, Irene RN Janene Layton RN RN aa5 Whitley, Kimberlee kw Knox, Taylor, JAYRO RN tl2 Corrections: (The following items were deleted from the chart) 09:27 08:25 Reassessment: Awaiting CT results to be transported to Room 413, spoke to Dr. todd Limon (radiologist) and he states results will be posted shortly. . jessi 07:10 Reassessment: Patient is alert, oriented x 3, equal unlabored respirations, skin aa5 warm/dry/pink. Awaiting CT results. . 08:25 Reassessment: Patient is alert, oriented x 3, equal unlabored respirations, skin aa5 warm/dry/pink. Awaiting CT results to be transported to Room [facility], spoke to Dr. Limon (radiologist) and he states results will be posted shortly. Pt notified of wait time, verbalized understanding, pt requesting pain medication at this time, rates pain 8/10 on a pain scale, MD notified. . 07:10 Reassessment: Patient is alert, oriented x 3, equal unlabored respirations, skin aa5 warm/dry/pink. Patient states feeling better. Awaiting CT results. Pt states "can I just rest and we'll try the sling in a little bit", inability to tolerate shoulder immobilizer placement as reported by JAYRO Claire. Will attempt later. . aa5
--- NOTE | 2019-01-25 05:19 | EDPHYS ---
Physician Documentation [facility] Name: Mariana Flor Age: 73 yrs Sex: Female : 1945 Arrival Date: 01/25/2019 Time: 04:06 Bed 6 Private MD: ED Physician Guy Salazar HPI: 01/25 04:37 This 73 yrs old Female presents to ER via EMS with complaints of Fall Injury. ambrocio 04:37 Details of fall: The patient fell from an upright position, while walking. Onset: The ambrocio symptoms/episode began/occurred just prior to arrival. Associated injuries: The patient sustained injury to the head, neck injury, injury to the chest, anterior aspect of left shoulder, left bicep, posterior aspect of left shoulder and left tricep. Severity of symptoms: At their worst the symptoms were mild, moderate, in the emergency department the symptoms are unchanged. The patient has not experienced similar symptoms in the past. Historical: - Allergies: 04:16 Compazine; tl2 04:16 Latex, Natural Rubber; tl2 04:16 Levofloxacin; tl2 04:16 Phenergan; tl2 04:16 Toradol; tl2 - Home Meds: 04:16 Bumex 2 MG Oral daily [Active]; Xanax 2 mg Oral tab 1 tab PRN [Active]; Effient 5 mg tl2 Oral tab once daily [Active]; - PMHx: 04:16 Anxiety; tl2 - PSHx: 04:16 Heart stents; tl2 - Immunization history:: Adult Immunizations up to date. - Immunization history: Last tetanus immunization: unknown. - Social history:: Smoking status: Patient/guardian denies using tobacco. - Ebola Screening: : No symptoms or risks identified at this time. ROS: 04:38 Constitutional: Negative for fever, chills, and weight loss, Eyes: Negative for injury, ambrocio pain, redness, and discharge, Neck: Negative for injury, pain, and swelling, Cardiovascular: Negative for chest pain, palpitations, and edema, Respiratory: Negative for shortness of breath, cough, wheezing, and pleuritic chest pain, Abdomen/GI: Negative for abdominal pain, nausea, vomiting, diarrhea, and constipation, Back: Negative for injury and pain, : Negative for injury, bleeding, discharge, and swelling, MS/Extremity: Negative for injury and deformity, Skin: Negative for injury, rash, and discoloration, Neuro: Negative for headache, weakness, numbness, tingling, and seizure, Psych: Negative for depression, anxiety, suicide ideation, homicidal ideation, and hallucinations, Allergy/Immunology: Negative for hives, rash, and allergies, Endocrine: Negative for neck swelling, polydipsia, polyuria, polyphagia, and marked weight changes, Hematologic/Lymphatic: Negative for swollen nodes, abnormal bleeding, and unusual bruising. 04:38 ENT: Positive for injury or acute deformity, contusion, of the left cheek and left eye. Exam: 04:38 Constitutional: This is a well developed, well nourished patient who is awake, alert, ambrocio and in no acute distress. Eyes: Pupils equal round and reactive to light, extra-ocular motions intact. Lids and lashes normal. Conjunctiva and sclera are non-icteric and not injected. Cornea within normal limits. Periorbital areas with no swelling, redness, or edema. ENT: Nares patent. No nasal discharge, no septal abnormalities noted. Tympanic membranes are normal and external auditory canals are clear. Oropharynx with no redness, swelling, or masses, exudates, or evidence of obstruction, uvula midline. Mucous membranes moist. Cardiovascular: Regular rate and rhythm with a normal S1 and S2. No gallops, murmurs, or rubs. Normal PMI, no JVD. No pulse deficits. Respiratory: Lungs have equal breath sounds bilaterally, clear to auscultation and percussion. No rales, rhonchi or wheezes noted. No increased work of breathing, no retractions or nasal flaring. Abdomen/GI: Soft, non-tender, with normal bowel sounds. No distension or tympany. No guarding or rebound. No evidence of tenderness throughout. Back: No spinal tenderness. No costovertebral tenderness. Full range of motion. Female : Normal external genitalia. Skin: Warm, dry with normal turgor. Normal color with no rashes, no lesions, and no evidence of cellulitis. Neuro: Awake and alert, GCS 15, oriented to person, place, time, and situation. Cranial nerves II-XII grossly intact. Motor strength 5/5 in all extremities. Sensory grossly intact. Cerebellar exam normal. Normal gait. Psych: Awake, alert, with orientation to person, place and time. Behavior, mood, and affect are within normal limits. 04:38 Neck: ROM/movement: pain. 04:38 Chest/axilla: Inspection: normal, Palpation: tenderness, that is mild, of the anterior aspect of left upper chest, left lateral posterior chest, left lateral anterior chest and left breast, Axilla: are normal, Breasts: are normal, symmetrical shape, no abscess, , no mass(es), no nipple discharge, no rash, Lymph nodes: lymphadenopathy is not appreciated. Vital Signs: 04:16 BP 183 / 88; Pulse 74; Resp 20; Temp 97.5(O); Pulse Ox 99% on R/A; Weight 77.11 kg; tl2 Height 5 ft. 4 in. (162.56 cm); Pain 10/10; 05:09 BP 196 / 87; Pulse 69; Resp 18; Pulse Ox 99% on R/A; Pain 5/10; tl2 06:14 BP 160 / 71; Pulse 66; Resp 19; Pulse Ox 96% on R/A; tl2 07:10 BP 160 / 77; Pulse 66; Resp 18 S; Pulse Ox 98% on R/A; Pain 6/10; aa5 08:10 BP 163 / 77; Pulse 68; Resp 16 S; Pulse Ox 98% on R/A; aa5 09:10 BP 160 / 79; Pulse 71; Resp 16 S; Temp 98.0(TE); Pulse Ox 98% on R/A; aa5 04:16 Body Mass Index 29.18 (77.11 kg, 162.56 cm) tl2 Kenan Coma Score: 04:16 Eye Response: spontaneous(4). Verbal Response: oriented(5). Motor Response: obeys tl2 commands(6). Total: 15. 05:09 Eye Response: spontaneous(4). Verbal Response: oriented(5). Motor Response: obeys tl2 commands(6). Total: 15. Trauma Score (Adult): 04:16 Eye Response: spontaneous(1); Verbal Response: oriented(1); Motor Response: obeys tl2 commands(2); Systolic BP: > 89 mm Hg(4); Respiratory Rate: 10 to 29 per min(4); Glasco Score: 15; Trauma Score: 12 05:09 Eye Response: spontaneous(1); Verbal Response: oriented(1); Motor Response: obeys tl2 commands(2); Systolic BP: > 89 mm Hg(4); Respiratory Rate: 10 to 29 per min(4); Kenan Score: 15; Trauma Score: 12 07:10 Eye Response: spontaneous(1); Verbal Response: oriented(1); Motor Response: obeys aa5 commands(2); Systolic BP: > 89 mm Hg(4); Respiratory Rate: 10 to 29 per min(4); Kenan Score: 15; Trauma Score: 12 08:10 Eye Response: spontaneous(1); Verbal Response: oriented(1); Motor Response: obeys aa5 commands(2); Systolic BP: > 89 mm Hg(4); Respiratory Rate: 10 to 29 per min(4); Kenan Score: 15; Trauma Score: 12 09:10 Eye Response: spontaneous(1); Verbal Response: oriented(1); Motor Response: obeys aa5 commands(2); Systolic BP: > 89 mm Hg(4); Respiratory Rate: 10 to 29 per min(4); Glasco Score: 15; Trauma Score: 12 MDM: 04:14 Patient medically screened. [facility] 04:41 Data reviewed: vital signs, nurses notes, lab test result(s), EKG, radiologic studies, [facility] CT scan, plain films. 01/25 04:23 Order name: Basic Metabolic Panel tl2 01/25 04:23 Order name: CBC with Diff tl2 01/25 04:23 Order name: LFT's tl2 01/25 04:23 Order name: Magnesium tl2 01/25 04:23 Order name: NT PRO-BNP; Complete Time: 05:15 tl2 01/25 04:23 Order name: PT-INR; Complete Time: 05:02 tl2 01/25 04:23 Order name: Troponin (emerg Dept Use Only); Complete Time: 05:15 tl2 01/25 04:23 Order name: XRAY Chest (1 view); Complete Time: 08:32 tl2 01/25 04:24 Order name: Basic Metabolic Panel; Complete Time: 05:15 EDMS 01/25 04:24 Order name: CBC with Automated Diff; Complete Time: 05:02 EDMS 01/25 04:24 Order name: Liver (Hepatic) Function; Complete Time: 05:15 EDMS 01/25 04:24 Order name: Magnesium; Complete Time: 05:15 EDMS 01/25 04:46 Order name: Lipase; Complete Time: 05:15 EDMS 01/25 04:23 Order name: EKG; Complete Time: 04:25 tl2 01/25 04:23 Order name: Cardiac monitoring; Complete Time: 04:24 tl2 01/25 04:23 Order name: EKG - Nurse/Tech; Complete Time: 04:24 tl2 01/25 04:23 Order name: IV Saline Lock; Complete Time: 04:24 tl2 01/25 04:23 Order name: Labs collected and sent; Complete Time: 04:24 2 01/25 04:37 Order name: Shoulder Left (2 View) XRAY [facility] 01/25 04:37 Order name: CT Traumagram (Head C Spine CAP W Con); Complete Time: 08:32 [facility] 01/25 04:37 Order name: CT Facial Bones W/O Con; Complete Time: 08:32 [facility] 01/25 08:38 Order name: CONS Physician Consult [facility] 01/25 08:38 Order name: CONS Physician Consult [facility] 01/25 04:23 Order name: O2 Per Protocol; Complete Time: 04:24 tl2 01/25 04:23 Order name: O2 Sat Monitoring; Complete Time: 04:24 2 01/25 05:02 Order name: Shoulder Immobilizer; Complete Time: 09:48 [facility] 01/25 05:02 Order name: Ice pack; Complete Time: 05:17 [facility] Administered Medications: 04:52 Drug: morphine 2 mg Route: IVP; Site: right wrist; tl2 05:18 Follow up: Response: No adverse reaction; Pain is decreased tl2 04:54 Drug: Zofran 4 mg Route: IVP; Site: right wrist; tl2 05:18 Follow up: Response: No adverse reaction tl2 05:28 Drug: morphine 2 mg Route: IVP; Site: right wrist; tl2 06:15 Follow up: Response: No adverse reaction; Pain is decreased tl2 06:58 Drug: morphine 2 mg Route: IVP; Site: right wrist; tl2 07:10 Follow up: Response: No adverse reaction; Pain is decreased aa5 08:56 Drug: Aspirin 81 mg Route: PO; aa5 09:45 Follow up: Response: No adverse reaction aa5 08:56 Drug: morphine 2 mg Route: IVP; Site: right hand; aa5 09:40 Follow up: Response: No adverse reaction; Pain is decreased aa5 Disposition: 01/25/19 05:18 Hospitalization ordered by Samanta Cordova for Observation. Preliminary diagnosis are Fall due to bumping against object, 2-part fracture of surgical neck of humerus, Other chest pain - wall, elevated troponin. - Bed requested for Telemetry/MedSurg (observation). - Status is Observation. iw - Condition is Stable. - Problem is new. - Symptoms have improved. UTI on Admission? No Signatures: Dispatcher [employer] [facility] Sherley Morgan RN RN dw Guy Salazar MD MD cha Williams, Irene RN RN Janene Holman RN RN aa5 Alethea Rodriguez RN RN tl2 Aimee Castro Corrections: (The following items were deleted from the chart) 04:46 04:38 LIPASE+C.LAB.BRZ ordered. [facility] ED[facility] 07:16 05:18 Hospitalization Ordered by Renetta Cowan MD for Observation. Preliminary dw diagnosis is Fall due to bumping against object; 2-part fracture of surgical neck of humerus; Other chest pain - wall, elevated troponin. Bed requested for Telemetry/MedSurg (observation). Status is Observation. Condition is Stable. Problem is new. Symptoms have improved. UTI on Admission? No. ambrocio 08:14 07:16 01/25/2019 05:18 Hospitalization Ordered by Renetta Cowan MD for Observation. eb Preliminary diagnosis is Fall due to bumping against object; 2-part fracture of surgical neck of humerus; Other chest pain - wall, elevated troponin. Bed requested for Telemetry/MedSurg (observation). Status is Observation. Condition is Stable. Problem is new. Symptoms have improved. UTI on Admission? No. dw 08:31 08:14 01/25/2019 05:18 Hospitalization Ordered by Renetta Cowan MD for Observation. ambrocio Preliminary diagnosis is Fall due to bumping against object; 2-part fracture of surgical neck of humerus; Other chest pain - wall, elevated troponin. Bed requested for Telemetry/MedSurg (observation). Status is Observation. Condition is Stable. Problem is new. Symptoms have improved. UTI on Admission? No. eb 09:49 08:31 01/25/2019 05:18 Hospitalization Ordered by Samanta Cordova MD for Observation. iw Preliminary diagnosis is Fall due to bumping against object; 2-part fracture of surgical neck of humerus; Other chest pain - wall, elevated troponin. Bed requested for Telemetry/MedSurg (observation). Status is Observation. Condition is Stable. Problem is new. Symptoms have improved. UTI on Admission? No. ambrocio
[2019-01-25] MEDS ORDERED: MORPHINE 4 MG/ML SYR ONE (05:37)
--- NOTE | 2019-01-25 07:11 | EKG ---
Test Date: 2019-01-25 Test Time: 04:14:58 [employer]: RITIKA MEASUREMENT RESULTS: Intervals: Rate: 72 NV: 170 QRSD: 122 QT: 456 QTc: 499 [place]: P: 46 NV: 170 QRS: 78 T: 42 INTERPRETIVE STATEMENTS: Normal sinus rhythm RSR' or QR pattern in V1 suggests right ventricular conduction delay Borderline ECG Compared to ECG 10/18/2017 11:25:52 RSR' in V1 or V2 now present Sinus bradycardia no longer present Right bundle-branch block no longer present Electronically Signed On 01-25-19 07:11:08 CDT by Kian White
--- NOTE | 2019-01-25 08:23 | RAD REPORT ---
EXAM DESCRIPTION: CT - Head C Spine Cap W Con - 01/25/2019 6:16 am CLINICAL HISTORY: Trauma, head and neck injury. Chest, abdomen and pelvis pain. PAIN COMPARISON: [place] Protocol dated 10/18/2018; Head Brain Wo Cont dated 05/07/2018; Chest Single View [place] 01/25/2019; Shoulder Left 2 View dated 01/25/2019 TECHNIQUE: CT head without contrast. CT cervical spine without contrast with coronal and sagittal reformatted images. CT chest, abdomen and pelvis with IV contrast (approximately 100 mL nonionic IV contrast) with hale l and sagittal reformatted images of the spine. All CT scans are performed using dose optimization technique as appropriate and may include automated exposure control or mA/KV adjustment according to patient size. FINDINGS: CT HEAD WITHOUT CONTRAST: No intracranial hemorrhage, hydrocephalus or extra-axial fluid collection. Moderate brain atrophy. No areas of brain edema or midline shift. The paranasal sinuses and mastoids are clear. The calvarium is intact. CT CERVICAL SPINE WITHOUT CONTRAST: No fracture or subluxation. Multilevel midcervical degenerative changes are present. The prevertebral soft tissues are normal in thickness. CT CHEST, ABDOMEN, PELVIS WITH CONTRAST: The lungs are emphysematous but clear.No pneumothorax or pericardial/pleural fluid. No evidence of intra-abdominal visceral injury, free fluid or free air. No concerning pelvic findings. Mildly impacted and comminuted fracture proximal left humerus. No dislocation. IMPRESSION: Mildly comminuted fracture proximal left humerus.
--- NOTE | 2019-01-25 08:25 | RAD REPORT ---
EXAM DESCRIPTION: CT - CTFB CLINICAL HISTORY: FACIAL PAIN Trauma, left-sided facial pain and swelling COMPARISON: No comparisons TECHNIQUE: Axial 2 mm thick images of the face were obtained with sagittal and coronal reconstructio n images. All CT scans are performed using dose optimization technique as appropriate and may include automated exposure control or mA/KV adjustment according to patient size. FINDINGS: No acute facial bone fracture is seen.The mandible is intact. Moderate soft tissue swellin g is seen anterior to the left zygoma. The globes and orbital contents are grossly unremarkable.The paranasal sinuses and mastoids are clear . IMPRESSION: Negative for facial bone fracture.
--- NOTE | 2019-01-25 08:30 | RAD REPORT ---
EXAM DESCRIPTION: RAD - Chest Single View - 01/25/2019 4:58 am CLINICAL HISTORY: CHEST PAIN Chest pain. COMPARISON: Chest Single View dated 10/18/2017; Chest Single View dated 10/13/2017; Chest Single View dated 06/25/2017; Chest Single View dated 11/06/2016 FINDINGS: Portable technique limits examination quality. The lungs are grossly clear. The heart is normal in size. Mildly comminuted proximal left humerus fra cture. IMPRESSION: Mildly comminuted proximal left humerus fracture.
--- NOTE | 2019-01-25 08:35 | RAD REPORT ---
EXAM DESCRIPTION: RAD - Shoulder Left 2 View - 01/25/2019 4:58 am CLINICAL HISTORY: PAIN Trauma, left shoulder pain COMPARISON: No comparisons FINDINGS: Mildly comminuted fracture proximal left humerus is seen. No dislocation evident.
[2019-01-25] MEDS ORDERED: ASPIRIN 81 MG CHEWABLE TABLET ONE (09:03)
[2019-01-25] MEDS ORDERED: MORPHINE 2 MG/ML SYR IV PRN (10:05)
[2019-01-25] MEDS ORDERED: ONDANSETRON 4 MG/2 ML VIAL IV PRN (10:05)
[2019-01-25 11:53] VITALS: BMI 29.2
--- NOTE | 2019-01-25 12:55 | P.HP ---
Certification for Inpatient Patient admitted to: Observation With expected LOS: <2 Midnights Practitioner: I am a practitioner with admitting privileges, knowledge of patient current condition, hospital course, and medical plan of care. Services: Services provided to patient in accordance with Admission requirements found in Title 42 Section 412.3 of the Code of Federal Regulations Patient History Date of Service: 01/25/19 Primary Care Provider: Dr Medellin Reason for admission: Fall History of Present Illness: This is a 73-year-old female with significant past medical history of CAD and anxiety who presented to the ED after having a fall at the house. Patient stated that she tripped over a concrete wall and landed on her left side. Patient did have a lot of pain of the fall and hit her head as well. Patient stated that her Choose issue is trending get a cocoa can from her garage and tripped on the cement and just landed on the left side. Patient states that her left arm hurts a lot along the shoulder area. And the pain radiates to the left chest wall as well. Patient denies having any shortness of breath nausea vomiting abdominal pain or any other associated symptoms at this time. Patient seen in the ER leads in imaging were done. Patient had a left-sided humerus fracture along with chest wall pain and thus was admitted for further workup. Allergies prochlorperazine maleate [From Compazine] Allergy (Intermediate, Verified 00:46) TWITCHING promethazine HCl [From Phenergan] Allergy (Intermediate, Verified 07/20/15 00:46 ) TWITCHING Latex, Natural Rubber Allergy (Verified 07/20/15 00:46) Unknown levofloxacin [From Levaquin] Allergy (Verified 07/20/15 00:46) Hives ketorolac [From Toradol] Adverse Reaction (Verified 10/18/17 16:23) Itching eggs Allergy (Severe, Uncoded 09/04/13 06:44) Anaphylaxis Home Medications: Alprazolam [Xanax] 1 mg PO BEDTIME PRN PRN 07/19/15 Prasugrel HCl [Effient] 5 mg PO DAILY 07/19/15 Bumetanide [Bumex] 2 mg PO DAILY 01/25/19 Codeine/APAP [Tylenol #3*] 1 tab PO BIDP PRN 01/25/19 Diethylpropion HCl 75 mg PO BREAKFAST PRN 01/25/19 Ondansetron HCl 4 mg PO BID 01/25/19 Rosuvastatin Calcium 20 mg PO DAILY 01/25/19 Zolpidem Tartrate 10 mg PO BEDTIME PRN 01/25/19 - Past Medical/Surgical History Has patient received pneumonia vaccine in the past: Yes Diabetic: No -: Hyperlipidemia -: CAD -: Anxiety -: migraines -: hysterectomy -: L shoulder sx -: R knee sx -: cardiac stent X1 - Family History Mother -: Stroke Father -: Heart disease Notes: CHF - Social History Smoking Status: Never smoker Alcohol use: Yes CD- Drugs: No Caffeine use: Yes Place of Residence: Home Review of Systems 10-point ROS is otherwise unremarkable Physical Examination - Vital Signs Temperature: 97.1 F Blood Pressure: 152/68 Pulse: 70 Respirations: 18 Pulse Ox (%): 98 - Physical Exam General: Alert, In no apparent distress Respiratory: Clear to auscultation bilaterally, Normal air movement Cardiovascular: Regular rate/rhythm, Normal S1 S2 Gastrointestinal: Normal bowel sounds, No tenderness Musculoskeletal: Cast in place (On the left Arm. Shoulder pain on movement. Limited ROM) Integumentary: No rashes Neurological: Normal speech, Normal tone Lymphatics: No axilla or inguinal lymphadenopathy - Studies Laboratory Data (last 24 hrs) 01/25/19 04:37: Lipase Cancelled 01/25/19 04:20: PT 10.8, INR 0.91 01/25/19 04:20: WBC 7.6, Hgb 11.9 L, Hct 35.2 L, Plt Count 195 01/25/19 04:20: Sodium 141, Potassium 3.5, BUN 10, Creatinine 0.76, Glucose 102 , Magnesium 2.1, Total Bilirubin 0.5, AST 45 H, ALT 141 H, Alkaline Phosphatase 145 H, Lipase 95 Assessment and Plan - Problems (Diagnosis) (1) Fall Current Visit: Yes Status: Acute Plan: Status post mechanical fall -PTOT consulted -fall precautions given Qualifiers: Encounter type: initial encounter Qualified Code(s): W19.XXXA - Unspecified fall, initial encounter (2) Left humeral fracture Current Visit: Yes Status: Acute Plan: Left humeral fracture status post fall -orthopedics has been consulted. Awaiting recommendation -patient currently on sling -will follow up with further recommendations from orthopedic Qualifiers: Encounter type: initial encounter Humerus Location: proximal Fracture type: closed Fracture alignment: nondisplaced (3) Chest wall pain Current Visit: Yes Status: Acute Plan: Chest wall pain most likely secondary to the fall and left humeral fracture -will get echocardiogram done at this time -followup with echocardiogram most likely chest wall pain not cardiac in nature (4) Hypertension Onset Date: 05/18/16 Current Visit: No Status: Chronic Plan: Stable at this time. -Restart Home medication Qualifiers: Hypertension type: essential hypertension Qualified Code(s): I10 - Essential (primary) hypertension Discharge Plan: Home Plan to discharge in: Greater than 2 days - Advance Directives Does patient have a Living Will: Yes Does patient have a Durable POA for Healthcare: Yes - Code Status/Comfort Care Code Status Assessed: Yes Critical Care: No
[2019-01-25] MEDS ORDERED: TRAMADOL HCL 50 MG TAB PO PRN (16:47)
--- NOTE | 2019-01-25 16:53 | ECHO ---
HEIGHT: 5 ft 4 in WEIGHT: 170 lb 0 oz DATE OF STUDY: 01/25/[address]: Kian White MD 2-DIMENSIONAL: YES M.MODE: YES DOPPLER: YES COLOR FLOW: YES TDS: NO PORTABLE: NO DEFINITY: NO BUBBLE STUDY: NO DIAGNOSIS: CORONARY ARTERY DISEASE, CLEARANCE CARDIAC HISTORY: CATHERIZATION: NO SURGERY: NO PROSTHETIC VALVE: NO PACEMAKER: NO MEASUREMENTS (cm) DIASTOLIC (NORMALS) SYSTOLIC (NORMALS) IVSd 0.9 (0.6-1.2) LA Diam 1.9 (1.9-4.0) LVEF 57% LVIDd 4.2 (3.5-5.7) LVIDs 3.0 (2.0-3.5) %FS 29% LVPWd 1.1 (0.6-1.2) Ao Diam 1.9 (2.0-3.7) 2 DIMENSIONAL ASSESSMENT: RIGHT ATRIUM: NORMAL LEFT ATRIUM: NORMAL RIGHT VENTRICLE: NORMAL LEFT VENTRICLE: NORMAL TRICUSPID VALVE: NORMAL MITRAL VALVE: NORMAL PULMONIC VALVE: NORMAL AORTIC VALVE: NORMAL PERICARDIAL EFFUSION: NONE AORTIC ROOT: NORMAL LEFT VENTRICULAR WALL MOTION: NORMAL. DOPPLER/COLOR FLOW: MILD TRICUSPID REGURGITATION. COMMENTS: MILD TRICUSPID REGURGITATION. NORMAL LEFT VENTRICLE SIZE AND FUNCTION. NO WALL MOTION ABNORMALITIES. NO EFFUSION. TECHNOLOGIST: SHADI LYNN
[2019-01-25] MEDS ORDERED: ENOXAPARIN 40 MG/0.4 ML SQ SCH (17:00)
[2019-01-25] MEDS ORDERED: CODEINE 30MG/APAP 300MG TAB PO ONE (18:00)
[2019-01-25 20:41] LABS: Urine Appearance CLEAR; Urine Bilirubin NEGATIVE (NEG); Urine Blood NEGATIVE (NEG); Urine Color YELLOW; Urine Glucose NEGATIVE (NEG); Urine Protein TRACE (NEG); Urine Urobilinogen 0.2 mg/dL (0.2-1.0); Urine pH 7.5 (5.0-7.0)
[2019-01-25 20:47] LABS: Urine Microscopic Reflex ORDER UMIC
[2019-01-25] MEDS ORDERED: ROSUVASTATIN 10 MG TAB PO SCH (21:00)
--- NOTE | 2019-01-25 21:02 | CON ---
Date of Consultation: 01/25/2019 Reason For Consultation: Cardiac clearance for possible left shoulder surgery. History Of Present Illness: Ms. Flor is 73, has had history of CAD, status post stent, otherwise is really fairly healthy. She has a history of anxiety, hypertension, and dyslipidemia. She came af ter a falling episode, had a fracture in the left humerus planned for surgery, although landen t has not been determined. They wanted to clear her because she has troponin of 0.08 and BNP that wa s elevated. Echocardiogram that was done was fairly unremarkable. She has no cardiac symptoms. Past Medical History: As stated above. Allergies: SHE IS ALLERGIC TO LEVAQUIN, LATEX, COMPAZINE. Review of Systems: Negative. Social History: Negative. Family History: Negative. Medications: Include Effient, Crestor, Xanax and Bumex. Physical Examination: Vital Signs: Stable. . HEENT: Negative. Neck: Supple. No bruit. Chest: Clear to auscultation and percussion. Cardiac: Revealed a regular rate and rhythm. No murmur, gallops or rubs. Abdomen: Benign. Extremities: Reveal no clubbing, cyanosis, or edema. Diagnostic Data: All within normal limits except for a mildly elevated troponin. BNP was normal. _ was elevated at 854, it was normal. Impression And Plan: Coronary artery disease that is stable. Troponin elevation is not clinically s ignificant. This may be because chronic coronary artery disease. The patient denied any chest pain, denied any syncope, denied any palpitations. Her echocardiogram is normal without any wall motion a bnormalities. I think if she undergo surgery, she is definitely cleared to have it done, but she nee ds to stop her Effient for that. Sounds like conservative measures may be taking surgery anyway, but we will be around for questions if the need arises. MARY/GITA Voice ID: [id number] Report ID: [id number]
[2019-01-25 21:12] LABS: Urine Bacteria <20 /HPF (<20); Urine Culture Reflex Order NOT NEEDED; Urine Mucus 1+ /HPF (NONE SEEN); Urine RBC <5 /HPF (NONE SEEN)
[2019-01-25] MEDS: MORPHINE 2 MG/ML SYR IV PRN (21:15)
[2019-01-25] MEDS ORDERED: ALPRAZOLAM 1 MG TABLET PO ONE (22:00)
[2019-01-25 22:05] VITALS: O2SAT 95
[2019-01-25] MEDS: ACETAMINOPHEN 500 MG TAB PO PRN (23:55)
[2019-01-26] MEDS: MORPHINE 2 MG/ML SYR IV PRN ×3 (00:47→09:01)
[2019-01-26 05:58] LABS: Absolute Lymphocytes (CBC) 1.4 K/uL (0.7-4.9); Absolute Monocytes 0.8 K/uL (0.1-1.3); Absolute Neutrophil 6.3 K/uL (1.8-8.0); Basophils % 0.4 % (0-1.3); Eosinophils % 0.4 % (0-4.4); Lymphocytes % 16.1 % (15.3-44.8); MPV 10.3 fL (7.6-11.3); Monocytes % 9.4 % (3.3-12.3); RBC Red Blood Cell Count 3.96 M/uL (3.86-4.86)
[2019-01-26 06:18] LABS: BUN Blood Urea Nitrogen 7 mg/dL (7-18); Bicarbonate 27 mmol/L (21-32); Glucose Level 116 mg/dL (74-106); Sodium Level 139 mmol/L (136-145)
[2019-01-26 08:44] VITALS: BP 167/73
[2019-01-26] MEDS ORDERED: ASPIRIN EC 81 MG TAB PO SCH (09:00)
[2019-01-26] MEDS ORDERED: PRASUGREL HCL 5 MG PO SCH (09:00)
[2019-01-26] MEDS ORDERED: HOME MED 1 EA UNK (Rosuvastatin Calcium [Rosuvastatin Calcium] 20 MG) PO SCH (09:00)
[2019-01-26] MEDS ORDERED: PRASUGREL (EFFIENT) 10 MG TAB PO SCH (09:00)
[2019-01-26] MEDS ORDERED: BUMETANIDE 2 MG PO SCH (09:00)
[2019-01-26] MEDS ORDERED: BUMETANIDE 1 MG TABLET PO SCH (09:00)
[2019-01-26 09:08] VITALS: TEMP 97.7
[2019-01-26] MEDS: ACETAMINOPHEN 500 MG TAB PO PRN (11:45)
--- NOTE | 2019-01-26 12:23 | P.SSS ---
Patient History Date of Service: 01/26/19 Primary Care Provider: Dr Medellin Reason for admission: Fall History of Present Illness: This is a 73-year-old female with significant past medical history of CAD and anxiety who presented to the ED after having a fall at the house. Patient stated that she tripped over a concrete wall and landed on her left side. Patient did have a lot of pain of the fall and hit her head as well. Patient stated that her Choose issue is trending get a cocoa can from her garage and tripped on the cement and just landed on the left side. Patient states that her left arm hurts a lot along the shoulder area. And the pain radiates to the left chest wall as well. Patient denies having any shortness of breath nausea vomiting abdominal pain or any other associated symptoms at this time. Patient seen in the ER leads in imaging were done. Patient had a left-sided humerus fracture along with chest wall pain and thus was admitted for further workup. Allergies prochlorperazine maleate [From Compazine] Allergy (Intermediate, Verified 00:46) TWITCHING promethazine HCl [From Phenergan] Allergy (Intermediate, Verified 07/20/15 00:46 ) TWITCHING Latex, Natural Rubber Allergy (Verified 07/20/15 00:46) Unknown levofloxacin [From Levaquin] Allergy (Verified 07/20/15 00:46) Hives ketorolac [From Toradol] Adverse Reaction (Verified 10/18/17 16:23) Itching eggs Allergy (Severe, Uncoded 09/04/13 06:44) Anaphylaxis Home Medications: Alprazolam [Xanax] 1 mg PO BEDTIME PRN PRN 07/19/15 Prasugrel HCl [Effient] 5 mg PO DAILY 07/19/15 Bumetanide [Bumex] 2 mg PO DAILY 01/25/19 Codeine/APAP [Tylenol #3*] 1 tab PO BIDP PRN 01/25/19 Diethylpropion HCl 75 mg PO BREAKFAST PRN 01/25/19 Ondansetron HCl 4 mg PO BID 01/25/19 Rosuvastatin Calcium 20 mg PO DAILY 01/25/19 Zolpidem Tartrate 10 mg PO BEDTIME PRN 01/25/19 - Past Medical/Surgical History Has patient received pneumonia vaccine in the past: Yes Diabetic: No -: Hyperlipidemia -: CAD -: Anxiety -: migraines -: hysterectomy -: L shoulder sx -: R knee sx -: cardiac stent X1 - Family History Mother -: Stroke Father -: Heart disease Notes: CHF - Social History Smoking Status: Never smoker Alcohol use: Yes CD- Drugs: No Caffeine use: Yes Place of Residence: Home Review of Systems 10-point ROS is otherwise unremarkable Physical Examination - Vital Signs Temperature: 97.7 F Blood Pressure: 167/73 Pulse: 79 Respirations: 18 Pulse Ox (%): 94 - Physical Exam General: Alert, In no apparent distress HEENT: Atraumatic, PERRLA, Mucous membr. moist/pink, EOMI, Sclerae nonicteric Neck: Supple, 2+ carotid pulse no bruit, No LAD, Without JVD or thyroid abnormality Respiratory: Clear to auscultation bilaterally, Normal air movement Cardiovascular: Regular rate/rhythm, Normal S1 S2 Gastrointestinal: Normal bowel sounds, No tenderness Musculoskeletal: Other (Left shoulder and sling. Limited range of motion. Much better than yesterday at this time.) Integumentary: No rashes Neurological: Normal gait, Normal speech, Normal strength at 5/5 x4 extr, Normal tone, Normal affect Lymphatics: No axilla or inguinal lymphadenopathy - Diagnosis (Problem(s)) (1) Fall Current Visit: Yes Status: Acute Qualifiers: Encounter type: initial encounter Qualified Code(s): W19.XXXA - Unspecified fall, initial encounter (2) Left humeral fracture Current Visit: Yes Status: Acute Plan: Nonsurgical at this time per orthopedic recommendation. Okay to Dc home. Patient wear sling for total of 6-12 weeks. Followup with Orthopedics outpatient Qualifiers: Encounter type: initial encounter Humerus Location: proximal Fracture type: closed Fracture alignment: nondisplaced (3) Chest wall pain Current Visit: Yes Status: Acute Plan: Most likely secondary to trauma. Echocardiogram within normal limits. Cardiology consulted. Okay to discharge patient home (4) Hypertension Onset Date: 05/18/16 Current Visit: No Status: Chronic Qualifiers: Hypertension type: essential hypertension Qualified Code(s): I10 - Essential (primary) hypertension - Disposition Disposition: ROUTINE DISCHARGE Condition: GOOD Diet: Regular Activity: Ad ariana
--- NOTE | 2019-01-26 14:16 | CON ---
Preoperative Diagnosis: Left proximal humerus fracture. History Of Present Illness: Ms. Flor is a 73-year-old woman. She sustained a fall in her home, r esulting in a proximal humerus fracture on the left side. It is impacted, minimally comminuted left proximal humerus fracture. She does not know why she fell. She recalls tripping over a ledge in her garage. The fracture pattern is quite stable in nature, minimally displaced, fracture fragments in excellent alignment. She will follow up in the office in 10 days for repeat x-ray. We will manage q uite nicely in a sling. CHARLI/GITA Voice ID: [id number] Report ID: [id number]
== END 2019-01-26 12:40 | disposition home or self-care (01) ==
LOC: ER 03:53 → ERHOLD 08:34 → 4TH 09:25
PROVIDERS: ADMIT Family Medicine; ATTEND Family Medicine
DX: S42.202A Unspecified fracture of upper end of left humerus, initial encounter for closed fracture (principal); R07.89 Other chest pain; E78.5 Hyperlipidemia, unspecified; W01.0XXA Fall on same level from slipping, tripping and stumbling without subsequent striking against object, initial encounter; Y92.009 Unspecified place in unspecified non-institutional (private) residence as the place of occurrence of the external cause; I25.10 Atherosclerotic heart disease of native coronary artery without angina pectoris; Z91.012 Allergy to eggs; Z91.040 Latex allergy status; Z95.5 Presence of coronary angioplasty implant and graft
CPT/HCPCS: 36415; 70450; 70486; 71045; 71260; 72125; 74177; 76377; 80048; 80076; 81003; 81015; 83690; 83735; 83880; 84484; 85025; 85610; 87086; 87088; 93005; 93306; 96374; 96375; 97163; 99285; G0378; J1650; J2270; J2405; Q9967

== ENCOUNTER 2019-06-01 01:50 | Observation (INO) | payer BC ==
--- OUTSIDE RECORDS SUMMARY | 2019-06-01 01:53 | XMS REPORT ---
:1945 [facility] Address [address] [place] [address] Dr. Ortiz [address] [place] [id number] Care Team Providers Name Role Phone Unavailable Unavailable Unavailable Problems This patient has no known problems. Allergies, Adverse Reactions, Alerts This patient has no known allergies or adverse reactions. Medications This patient has no known medications.
[2019-06-01 03:08] LABS: Urine Blood NEGATIVE (NEG); Urine Glucose NEGATIVE (NEG); Urine Protein TRACE (NEG)
[2019-06-01] MEDS ORDERED: NA CHLORIDE 0.9% 1,000 ML ONE (03:08)
[2019-06-01] MEDS ORDERED: LORazepam 2 MG/ML VIAL ONE (03:34)
[2019-06-01 03:45] LABS: Protime INR 0.99
[2019-06-01 03:47] LABS: Absolute Lymphocytes (CBC) 2.3 K/uL (0.7-4.9); Basophils % 0.8 % (0-1.3); Hematocrit 38.2 % (36.0-45.0); Lymphocytes % 28.2 % (15.3-44.8); MPV 9.4 fL (7.6-11.3); RBC Red Blood Cell Count 4.44 M/uL (3.86-4.86)
[2019-06-01] MEDS ORDERED: ONDANSETRON 4 MG/2 ML VIAL ONE (03:50)
[2019-06-01] MEDS ORDERED: MORPHINE 2 MG/ML SYR ONE ×2 (03:50→09:56)
[2019-06-01 03:58] LABS: ALT/SGPT 20 U/L (12-78); AST/SGOT 13 U/L (15-37); Alkaline Phosphatase 121 U/L (45-117); BUN Blood Urea Nitrogen 19 mg/dL (7-18); Bicarbonate 29 mmol/L (21-32); Bilirubin Direct 0.2 mg/dL (0-0.2); Bilirubin Total 0.6 mg/dL (0.2-1.0); Glucose Level 109 mg/dL (74-106); Potassium 3.7 mmol/L (3.5-5.1); Sodium Level 140 mmol/L (136-145)
[2019-06-01 03:59] LABS: Albumin 4.3 g/dL (3.4-5.0); Lipase 126 U/L (73-393); NT PRO-BNP 498 pg/mL (<450); Protein, Total 8.2 g/dL (6.4-8.2); Troponin (Emerg Dept Use Only) < 0.02 ng/mL (0.0-0.045)
--- NOTE | 2019-06-01 05:09 | EDPHYS ---
Physician Documentation [facility] Name: Mariana Flor Age: 74 yrs Sex: Female : 1945 Arrival Date: 06/01/2019 Time: 01:55 Bed 20 Private MD: ED Physician Guy Salazar HPI: 06/01 02:47 This 74 yrs old Female presents to ER via Unassigned with complaints of Fall ambrocio Injury. 02:47 Details of fall: The patient fell from an upright position, while walking. Onset: The ambrocio symptoms/episode began/occurred yesterday. Associated injuries: The patient sustained injury to the head. Severity of symptoms: At their worst the symptoms were mild, in the emergency department the symptoms are unchanged. The patient has not experienced similar symptoms in the past. Historical: - Allergies: 03:03 Compazine; cr4 03:03 Latex, Natural Rubber; cr4 03:03 Levofloxacin; cr4 03:03 Phenergan; cr4 03:03 Toradol; cr4 - Home Meds: 03:03 Bumex 2 MG Oral daily [Active]; Effient 5 mg Oral tab once daily [Active]; Xanax 2 mg cr4 Oral tab 1 tab PRN [Active]; - PMHx: 03:03 Anxiety; cr4 - PSHx: 03:03 Heart stents; Hysterectomy; Knee surgery; Tubal ligation; cr4 - Immunization history:: Pneumococcal vaccine is up to date, unable to take flu shot. - Social history:: Patient/guardian denies using Smoking status: Patient/guardian denies using tobacco, never smoked. - Family history:: not pertinent. - Ebola Screening: : No symptoms or risks identified at this time. ROS: 02:47 Constitutional: Negative for fever, chills, and weight loss, Eyes: Negative for injury, ambrocio pain, redness, and discharge, ENT: Negative for injury, pain, and discharge, Neck: Negative for injury, pain, and swelling, Cardiovascular: Negative for chest pain, palpitations, and edema, Respiratory: Negative for shortness of breath, cough, wheezing, and pleuritic chest pain, Abdomen/GI: Negative for abdominal pain, nausea, vomiting, diarrhea, and constipation, Back: Negative for injury and pain, : Negative for injury, bleeding, discharge, and swelling, MS/Extremity: Negative for injury and deformity, Skin: Negative for injury, rash, and discoloration, Neuro: Negative for headache, weakness, numbness, tingling, and seizure, Psych: Negative for depression, anxiety, suicide ideation, homicidal ideation, and hallucinations, Allergy/Immunology: Negative for hives, rash, and allergies, Endocrine: Negative for neck swelling, polydipsia, polyuria, polyphagia, and marked weight changes, Hematologic/Lymphatic: Negative for swollen nodes, abnormal bleeding, and unusual bruising. Exam: 02:47 Constitutional: This is a well developed, well nourished patient who is awake, alert, ambrocio and in no acute distress. Head/Face: Normocephalic, atraumatic. Eyes: Pupils equal round and reactive to light, extra-ocular motions intact. Lids and lashes normal. Conjunctiva and sclera are non-icteric and not injected. Cornea within normal limits. Periorbital areas with no swelling, redness, or edema. ENT: Nares patent. No nasal discharge, no septal abnormalities noted. Tympanic membranes are normal and external auditory canals are clear. Oropharynx with no redness, swelling, or masses, exudates, or evidence of obstruction, uvula midline. Mucous membranes moist. Neck: Trachea midline, no thyromegaly or masses palpated, and no cervical lymphadenopathy. Supple, full range of motion without nuchal rigidity, or vertebral point tenderness. No Meningismus. Chest/axilla: Normal chest wall appearance and motion. Nontender with no deformity. No lesions are appreciated. Cardiovascular: Regular rate and rhythm with a normal S1 and S2. No gallops, murmurs, or rubs. Normal PMI, no JVD. No pulse deficits. Respiratory: Lungs have equal breath sounds bilaterally, clear to auscultation and percussion. No rales, rhonchi or wheezes noted. No increased work of breathing, no retractions or nasal flaring. Abdomen/GI: Soft, non-tender, with normal bowel sounds. No distension or tympany. No guarding or rebound. No evidence of tenderness throughout. Back: No spinal tenderness. No costovertebral tenderness. Full range of motion. Skin: Warm, dry with normal turgor. Normal color with no rashes, no lesions, and no evidence of cellulitis. MS/ Extremity: Pulses equal, no cyanosis. Neurovascular intact. Full, normal range of motion. Neuro: Awake and alert, GCS 15, oriented to person, place, time, and situation. Cranial nerves II-XII grossly intact. Motor strength 5/5 in all extremities. Sensory grossly intact. Cerebellar exam normal. Normal gait. Psych: Awake, alert, with orientation to person, place and time. Behavior, mood, and affect are within normal limits. Vital Signs: 02:40 BP 129 / 63; Pulse 68; Resp 18; Temp 97.8; Pulse Ox 100% ; Pain 0/10; cr4 04:00 BP 130 / 66; Pulse 57; Resp 18; Temp 97.8; Pulse Ox 94% ; Pain 8/10; cr4 05:17 BP 127 / 58; Pulse 53; Resp 18; Pulse Ox 100% ; Pain 2/10; cr4 06:06 BP 126 / 60; Pulse 55; Resp 16; Temp 97.6; Pulse Ox 100% ; Pain 0/10; cr4 MDM: 02:22 Patient medically screened. [facility] 02:47 Data reviewed: vital signs, nurses notes, lab test result(s), EKG, radiologic studies, [facility] CT scan, plain films. 06/01 02:46 Order name: Basic Metabolic Panel; Complete Time: 04:59 [facility] 06/01 02:46 Order name: CBC with Automated Diff; Complete Time: 04:59 [facility] 06/01 02:46 Order name: Basic Metabolic Panel [facility] 06/01 02:46 Order name: CBC with Diff [facility] 06/01 02:46 Order name: LFT's [facility] 06/01 02:46 Order name: Liver (Hepatic) Function; Complete Time: 04:59 [facility] 06/01 02:46 Order name: Magnesium; Complete Time: 04:59 [facility] 06/01 02:46 Order name: NT PRO-BNP; Complete Time: 04:59 [facility] 06/01 02:46 Order name: PT-INR; Complete Time: 04:59 [facility] 06/01 02:46 Order name: Troponin (emerg Dept Use Only); Complete Time: 04:59 [facility] 06/01 02:46 Order name: Lipase; Complete Time: 04:59 [facility] 06/01 02:46 Order name: Urine Culture [facility] 06/01 03:02 Order name: Urine Dipstick--Ancillary (enter results) [facility] 06/01 06:18 Order name: Troponin I [facility] 06/01 02:46 Order name: XRAY Chest (1 view) [facility] 06/01 02:46 Order name: EKG; Complete Time: 02:46 [facility] 06/01 02:46 Order name: Cardiac monitoring; Complete Time: 03:46 [facility] 06/01 02:46 Order name: EKG - Nurse/Tech; Complete Time: 03:30 [facility] 06/01 02:46 Order name: IV Saline Lock; Complete Time: 03:29 [facility] 06/01 02:46 Order name: Labs collected and sent; Complete Time: 03:46 [facility] 06/01 02:46 Order name: CT Traumagram (Head C Spine CAP W Con) [facility] 06/01 06:18 Order name: CONS Pharmacy Consult [facility] 06/01 06:18 Order name: Regular [facility] 06/01 06:18 Order name: Troponin I [facility] 06/01 06:19 Order name: Troponin I [facility] 06/01 10:30 Order name: RAD [facility] 06/01 02:46 Order name: O2 Per Protocol; Complete Time: 03:29 [facility] 06/01 02:46 Order name: O2 Sat Monitoring; Complete Time: 03:29 [facility] 06/01 02:46 Order name: Urine Dipstick-Ancillary (obtain specimen); Complete Time: 03:46 [facility] Administered Medications: 03:29 Drug: NS 0.9% 1000 ml Route: IV; Rate: 125 ml/hr; Site: left forearm; cr4 06:25 Follow up: IV Status: Infusion continued upon admission cr4 03:43 Drug: Ativan 0.5 mg Route: IVP; Site: left forearm; cr4 04:30 Follow up: Response: No adverse reaction; Anxiety decreased cr4 04:01 Drug: Zofran 4 mg Route: IVP; Site: left forearm; cr4 04:30 Follow up: Response: No adverse reaction cr4 04:02 Drug: morphine 2 mg Route: IVP; Site: left forearm; cr4 04:30 Follow up: Response: No adverse reaction; Pain is decreased cr4 09:59 Drug: morphine 2 mg {Note: RASS-0.} Route: IVP; Site: left forearm; em 10:30 Follow up: Response: No adverse reaction; Pain is decreased em Disposition: 06/01/19 05:07 Hospitalization ordered by Renetta Cowan for Inpatient Admission. Preliminary diagnosis are Repeated falls, Weakness. - Bed requested for Telemetry/MedSurg (Inpatient). - Status is Inpatient Admission. em - Condition is Stable. - Problem is new. - Symptoms have improved. UTI on Admission? No Signatures: Dispatcher [employer] EDSherley Floyd RN RN dw Anderson, Corey, MD MD cha Munoz, Edgar, COMMUNICATIONS TECHNICIAN COMMUNICATIONS TECHNICIAN em Urmila Calderon, RN RN cr4 Corrections: (The following items were deleted from the chart) 05:39 05:07 Hospitalization Ordered by Renetta Cowan MD for Inpatient Admission. Preliminary dw diagnosis is Repeated falls; Weakness. Bed requested for Telemetry/MedSurg (Inpatient). Status is Inpatient Admission. Condition is Stable. Problem is new. Symptoms have improved. UTI on Admission? No. ambrocio 12:41 05:39 06/01/2019 05:07 Hospitalization Ordered by Renetta Cowan MD for Inpatient dw Admission. Preliminary diagnosis is Repeated falls; Weakness. Bed requested for [facility] ER HOLD. Status is Inpatient Admission. Condition is Stable. Problem is new. Symptoms have improved. UTI on Admission? No. dw 12:42 12:41 06/01/2019 05:07 Hospitalization Ordered by Renetta Cowan MD for Inpatient dw Admission. Preliminary diagnosis is Repeated falls; Weakness. Bed requested for Telemetry/MedSurg (Inpatient). Status is Inpatient Admission. Condition is Stable. Problem is new. Symptoms have improved. UTI on Admission? No. 14:50 12:42 06/01/2019 05:07 Hospitalization Ordered by Renetta Cowan MD for Inpatient em Admission. Preliminary diagnosis is Repeated falls; Weakness. Bed requested for Telemetry/MedSurg (Inpatient). Status is Inpatient Admission. Condition is Stable. Problem is new. Symptoms have improved. UTI on Admission? No. tess
--- NOTE | 2019-06-01 05:09 | ER ---
Nurse's Notes [facility] Name: Mariana Flor Age: 74 yrs Sex: Female : 1945 Arrival Date: 06/01/2019 Time: 01:55 Bed 20 Private MD: Diagnosis: Repeated falls;Weakness Presentation: 06/01 02:43 Presenting complaint: Patient states: Patient states she fell multiple times tonight cr4 and has had an unsteady gait with dizziness since last ni. The patient also reports hesitation with urination. 02:43 Method Of Arrival: Wheelchair cr4 02:43 Acuity: YUDELKA 2 cr4 02:43 Transition of care: patient was not received from another setting of care. Onset of cr4 symptoms was May 31, 2019. Risk Assessment: Do you want to hurt yourself or someone else? Patient reports no desire to harm self or others. Initial Sepsis Screen: Does the patient meet any 2 criteria? No. Patient's initial sepsis screen is negative. Does the patient have a suspected source of infection? No. Patient's initial sepsis screen is negative. Care prior to arrival: None. Triage Assessment: 02:52 General: Appears well groomed, well developed, Behavior is cooperative, anxious. Pain: cr4 Denies pain. EENT: No signs and/or symptoms were reported regarding the EENT system. Neuro: Reports dizziness, since 1800 a syncopal episode weakness generalized. Cardiovascular: Heart tones present Capillary refill < 3 seconds Pulses are all present. Chest pain is denied. Respiratory: No deficits noted. Breath sounds are clear bilaterally. GI: Abdomen is round Bowel sounds present X 4 quads. Reports lower abdominal pain, Patient currently denies nausea, vomiting. : Reports hesitation. Denies burning with urination, discharge. Derm: No deficits noted. Musculoskeletal: Range of motion: limited in left shoulder Reports weakness in genralized. Historical: - Allergies: 03:03 Compazine; cr4 03:03 Latex, Natural Rubber; cr4 03:03 Levofloxacin; cr4 03:03 Phenergan; cr4 03:03 Toradol; cr4 - Home Meds: 03:03 Bumex 2 MG Oral daily [Active]; Effient 5 mg Oral tab once daily [Active]; Xanax 2 mg cr4 Oral tab 1 tab PRN [Active]; - PMHx: 03:03 Anxiety; cr4 - PSHx: 03:03 Heart stents; Hysterectomy; Knee surgery; Tubal ligation; cr4 - Immunization history:: Pneumococcal vaccine is up to date, unable to take flu shot. - Social history:: Patient/guardian denies using Smoking status: Patient/guardian denies using tobacco, never smoked. - Family history:: not pertinent. - Ebola Screening: : No symptoms or risks identified at this time. Screenin:27 Abuse screen: Denies threats or abuse. Nutritional screening: No deficits noted. cr4 Tuberculosis screening: No symptoms or risk factors identified. Fall Risk Fall in past 12 months (25 points). Secondary diagnosis (15 points) IV access (20 points). Ambulatory Aid- None/Bed Rest/Nurse Assist (0 pts). Gait- Weak (10 pts.). Mental Status- Oriented to own ability (0 pts). Total Park Fall Scale indicates High Risk Score (45 or more points). Side Rails Up X 2 Placed Close to Nursing Station Family Present and informed to notify staff if the need to leave the bedside As available patient and family educated on Fall Prevention Program and Strategies. Assessment: 03:43 General: see triage assessment.. cr4 04:00 Reassessment: No changes from previously documented assessment. Patient and/or family cr4 updated on plan of care and expected duration. Pain level reassessed. Patient is alert, oriented x 3, equal unlabored respirations, skin warm/dry/pink. 05:16 Reassessment: Patient and/or family updated on plan of care and expected duration. Pain cr4 level reassessed. Patient is alert, oriented x 3, equal unlabored respirations, skin warm/dry/pink. Patient states feeling better. Patient states symptoms have improved. 05:30 General: notified of need to admit.. cr4 06:04 Reassessment: Patient admitted to ER Hold, see [facility] for further assessment and cr4 vital signs. 06:07 Reassessment: patient with eyes closed breathing regular easily aroused.. cr4 14:25 Reassessment: report given to JAYRO Cabrera. em Vital Signs: 02:40 BP 129 / 63; Pulse 68; Resp 18; Temp 97.8; Pulse Ox 100% ; Pain 0/10; cr4 04:00 BP 130 / 66; Pulse 57; Resp 18; Temp 97.8; Pulse Ox 94% ; Pain 8/10; cr4 05:17 BP 127 / 58; Pulse 53; Resp 18; Pulse Ox 100% ; Pain 2/10; cr4 06:06 BP 126 / 60; Pulse 55; Resp 16; Temp 97.6; Pulse Ox 100% ; Pain 0/10; cr4 ED Course: 01:55 Patient arrived in ED. ag3 02:22 Guy Salazar MD is Attending Physician. ambrocio 02:43 Arm band placed on right wrist. cr4 02:47 Triage completed. cr4 03:15 Inserted saline lock: 22 gauge in left forearm, using aseptic technique. cr4 03:18 XRAY Chest (1 view) In Process Unspecified. EDMS 03:22 Radiology exam delayed due to lab results not completed at this time. (BUN/Creatinine). kw1 03:33 Radiology exam delayed due to lab results not completed at this time. (BUN/Creatinine). kw1 03:44 Patient has correct armband on for positive identification. Placed in gown. Bed in low cr4 position. Call light in reach. Side rails up X2. Adult w/ patient. 03:52 Radiology exam delayed due to lab results not completed at this time. (BUN/Creatinine). kw1 05:05 Renetta Cowan MD is Hospitalizing Provider. ambrocio 05:16 CT Traumagram (Head C Spine CAP W Con) In Process Unspecified. EDMS 06:03 No provider procedures requiring assistance completed. Patient admitted, IV remains in cr4 place. 07:12 Scooter Villegas LVN is Primary Nurse. em Administered Medications: 03:29 Drug: NS 0.9% 1000 ml Route: IV; Rate: 125 ml/hr; Site: left forearm; cr4 06:25 Follow up: IV Status: Infusion continued upon admission cr4 03:43 Drug: Ativan 0.5 mg Route: IVP; Site: left forearm; cr4 04:30 Follow up: Response: No adverse reaction; Anxiety decreased cr4 04:01 Drug: Zofran 4 mg Route: IVP; Site: left forearm; cr4 04:30 Follow up: Response: No adverse reaction cr4 04:02 Drug: morphine 2 mg Route: IVP; Site: left forearm; cr4 04:30 Follow up: Response: No adverse reaction; Pain is decreased cr4 09:59 Drug: morphine 2 mg {Note: RASS-0.} Route: IVP; Site: left forearm; em 10:30 Follow up: Response: No adverse reaction; Pain is decreased em Outcome: 05:07 Decision to Hospitalize by Provider. [facility] 06:03 Admitted to ER Hold. Please see [facility] for further documentation. cr4 06:03 Condition: improved 06:03 Instructed on the need for admit, Demonstrated understanding of instructions. 14:50 Patient left the ED. em Signatures: Dispatcher [employer] EDGuy Marcos MD MD cha Munoz, Edgar, POULTRY FARMER POULTRY FARMER Urmila Plummer RN RN cr4 Susi Mcdowell kw1 Daina Bryant3
[2019-06-01] MEDS ORDERED: ONDANSETRON 4 MG/2 ML VIAL IV PRN (06:11)
[2019-06-01] MEDS ORDERED: ACETAMINOPHEN 500 MG TAB PO PRN (06:11)
[2019-06-01] MEDS: NA CHLORIDE 0.9% 1,000 ML IV SCH ×2 (07:00→14:55)
--- NOTE | 2019-06-01 08:51 | RAD REPORT ---
EXAM DESCRIPTION: Shy Single View06/01/2019 3:17 am CLINICAL HISTORY: cough COMPARISON: January 2019 FINDINGS: The lungs appear clear of acute infiltrate. The heart is normal size IMPRESSION: No acute abnormalities displayed
--- NOTE | 2019-06-01 09:13 | P.HP ---
Certification for Inpatient Patient admitted to: Observation With expected LOS: <2 Midnights Patient will require the following post-hospital care: None Practitioner: I am a practitioner with admitting privileges, knowledge of patient current condition, hospital course, and medical plan of care. Services: Services provided to patient in accordance with Admission requirements found in Title 42 Section 412.3 of the Code of Federal Regulations Patient History Date of Service: 06/01/19 Reason for admission: Status post multiple falls History of Present Illness: Patient is a 74-year-old female who comes into the hospital after falling on numerous occasions. She apparently has been dizzy and has not had unsteady gait. Patient's family felt like it was related to patient having a urinary tract infection. Patient has had dysuria. In the ER patient had a traumagram as well. No significant internal bleeding. There is a report that states that patient has an impacted left humeral fracture. Will place a splint and Consult orthopedic for left humeral fracture. Allergies promethazine HCl [From Phenergan] Allergy (Intermediate, Verified 06/01/19 06:50 ) TWITCHING levofloxacin [From Levaquin] Allergy (Verified 06/01/19 06:50) Hives prochlorperazine maleate [From Compazine] Adverse Reaction (Intermediate, Verified 06/01/19 06:50) restlessness ketorolac [From Toradol] Adverse Reaction (Verified 06/01/19 06:50) Itching Latex, Natural Rubber Adverse Reaction (Verified 06/01/19 06:50) Rash Home Medications: Alprazolam [Xanax] 1 mg PO DAILY PRN 07/19/15 Prasugrel HCl [Effient] 5 mg PO DAILY 07/19/15 Bumetanide [Bumex] 2 mg PO DAILY 01/25/19 Ondansetron HCl 4 mg PO BID PRN 01/25/19 - Past Medical/Surgical History Has patient received pneumonia vaccine in the past: Yes Diabetic: No -: Hyperlipidemia -: CAD -: Anxiety -: migraines -: hysterectomy -: L shoulder sx -: R knee sx -: cardiac stent X1 - Family History Mother Medical History: Stroke Father Medical History: Cancer Notes: CHF - Social History Smoking Status: Never smoker Alcohol use: No CD- Drugs: No Caffeine use: No Place of Residence: Home Review of Systems 10-point ROS is otherwise unremarkable Musculoskeletal: Arm Pain Physical Examination - Vital Signs Temperature: 98 F Blood Pressure: 140/80 Pulse: 88 Respirations: 18 Pulse Ox (%): 96 - Physical Exam General: Alert, In no apparent distress, Oriented x3 HEENT: Atraumatic, PERRLA, Mucous membr. moist/pink, EOMI, Sclerae nonicteric Neck: Supple, 2+ carotid pulse no bruit, No LAD, Without JVD or thyroid abnormality Respiratory: Clear to auscultation bilaterally, Normal air movement Cardiovascular: Regular rate/rhythm, Normal S1 S2, No murmurs Gastrointestinal: Normal bowel sounds, Soft and benign, Non-distended, No tenderness Musculoskeletal: No clubbing, No swelling, Tenderness (left humeral fracture) Integumentary: No rashes Neurological: Normal gait, Normal speech, Normal tone, Sensation intact, Cranial nerves 3-12 intact, Normal affect, Abnormal strength (left humeral fracture) Lymphatics: No axilla or inguinal lymphadenopathy - Studies Laboratory Data (last 24 hrs) 06/01/19 03:07: PT 11.7, INR 0.99 06/01/19 03:07: WBC 8.2, Hgb 12.9, Hct 38.2, Plt Count 283 06/01/19 03:07: Sodium 140, Potassium 3.7, BUN 19 H, Creatinine 1.17, Glucose 109 H, Magnesium 2.0, Total Bilirubin 0.6, AST 13 L, ALT 20, Alkaline Phosphatase 121 H, Lipase 126 Assessment & Plan - Problems (Diagnosis) (1) Fall Current Visit: No Status: Acute Qualifiers: Encounter type: initial encounter Qualified Code(s): W19.XXXA - Unspecified fall, initial encounter (2) Left humeral fracture Current Visit: No Status: Acute Qualifiers: Encounter type: initial encounter Humerus Location: proximal Fracture type: closed Fracture alignment: nondisplaced (3) Syncope Onset Date: 10/19/17 Current Visit: No Status: Acute (4) Weakness Onset Date: 10/19/17 Current Visit: No Status: Acute (5) Hypertension Onset Date: 05/18/16 Current Visit: No Status: Chronic Qualifiers: Hypertension type: essential hypertension Qualified Code(s): I10 - Essential (primary) hypertension - Plan Plan: 1. Gentle hydration 2. Pain control 3. Physical therapy evaluation 4. Orthopedic consultation for impacted left humeral fracture 5. Continue cardiac meds 6. GI and DVT prophylax Discharge Plan: Home Plan to discharge in: Greater than 2 days - Advance Directives Does patient have a Living Will: Yes Does patient have a Durable POA for Healthcare: Yes - Code Status/Comfort Care Code Status Assessed: Yes Code Status: Full Code Critical Care: No Time Spent Managing PTS Care (In Minutes): 45
[2019-06-01 09:40] VITALS: BMI 29.1
--- NOTE | 2019-06-01 10:29 | RAD REPORT ---
EXAM DESCRIPTION: RAD - Humerus Left - 06/01/2019 10:18 am CLINICAL HISTORY: Left arm pain FINDINGS: Subacute fracture involves the humeral head and neck. Fracture fragment is avulsed lateral ly. No dislocation seen
[2019-06-01] MEDS: MORPHINE 2 MG/ML SYR IV PRN ×3 (15:16→22:51)
[2019-06-01 22:18] VITALS: O2SAT 98
[2019-06-02 00:02] LABS: Urine Appearance CLEAR; Urine Bilirubin NEGATIVE (NEG); Urine Blood NEGATIVE (NEG); Urine Color YELLOW; Urine Glucose NEGATIVE (NEG); Urine Protein NEGATIVE (NEG); Urine Specific Gravity 1.025 (1.005-1.030); Urine Urobilinogen 0.2 mg/dL (0.2-1.0); Urine pH 5.5 (5.0-7.0)
[2019-06-02 00:04] LABS: Urine Microscopic Reflex NO UMIC
[2019-06-02] MEDS: NA CHLORIDE 0.9% 1,000 ML IV SCH ×2 (03:11→09:40)
[2019-06-02] MEDS ORDERED: ONDANSETRON HCL 4 MG PO PRN (09:05)
[2019-06-02] MEDS ORDERED: HOME MED 1 EA UNK (Alprazolam [Xanax] 1 MG) PO PRN (09:05)
--- NOTE | 2019-06-02 09:12 | P.PN ---
Subjective Date of Service: 06/02/19 Subjective: No new changes, No C/O voiced, Improving Review of Systems 10-point ROS is otherwise unremarkable Physical Examination - Vital Signs Temperature: 97.2 F Blood Pressure: 151/66 Pulse: 64 Respirations: 16 Pulse Ox (%): 99 - Physical Exam General: Alert, In no apparent distress, Oriented x3 Respiratory: Clear to auscultation bilaterally, Normal air movement Cardiovascular: Regular rate/rhythm, Normal S1 S2 Gastrointestinal: Normal bowel sounds, Soft and benign, Non-distended, No tenderness Musculoskeletal: Other Neurological: Normal speech, Normal tone, Normal affect - Studies Medications List Reviewed: Yes Assessment & Plan - Problems (Diagnosis) (1) Fall Current Visit: No Status: Acute Qualifiers: Encounter type: initial encounter Qualified Code(s): W19.XXXA - Unspecified fall, initial encounter (2) Left humeral fracture Current Visit: No Status: Acute Qualifiers: Encounter type: sequela Fracture type: closed Fracture alignment: nondisplaced (3) Syncope Onset Date: 10/19/17 Current Visit: No Status: Acute (4) Weakness Onset Date: 10/19/17 Current Visit: No Status: Acute (5) Hypertension Onset Date: 05/18/16 Current Visit: No Status: Chronic Qualifiers: Hypertension type: essential hypertension Qualified Code(s): I10 - Essential (primary) hypertension - Plan Plan: 1. Physical therapy evaluation 2. Orthopedic consultation for a subacute impacted left humeral fracture; patient may not need any further treatment as it appears to be healing. Will get orthopedic recommendations at this time 3. Continue cardiac meds 4. GI and DVT prophylax Discharge Plan: Home Plan to discharge in: 24 Hours - Advance Directives Does patient have a Living Will: Yes Does patient have a Durable POA for Healthcare: Yes - Code Status/Comfort Care Code Status: Full Code Critical Care: No Time Spent Managing PTS Care (In Minutes): 30
[2019-06-02] MEDS ORDERED: ALPRAZOLAM 1 MG TABLET PO PRN (09:22)
[2019-06-02] MEDS ORDERED: ONDANSETRON 4 MG (ODT) TAB PO PRN (09:24)
[2019-06-02 12:20] VITALS: BP 145/60; TEMP 98
--- NOTE | 2019-06-02 18:26 | EKG ---
Test Date: 2019-06-01 Test Time: 03:38:20 Rotary Envelope Machine Operator: PERICO MEASUREMENT RESULTS: Intervals: Rate: 63 AR: 138 QRSD: 120 QT: 542 QTc: 554 [place]: P: 64 AR: 138 QRS: 81 T: 77 INTERPRETIVE STATEMENTS: Normal sinus rhythm Nonspecific intraventricular conduction delay Borderline ECG Compared to ECG 01/25/2019 04:14:58 Intraventricular conduction delay now present Electronically Signed On 06-02-19 18:23:03 CDT by Kian White
--- NOTE | 2019-06-02 22:03 | CON ---
Date of Consultation: 06/02/2019 History Of Present Illness: I have not seen this patient in the past. To my knowledge, she is a 74- year-old female who apparently fell in January, injuring her left upper extremity. She was diagnosed wit h a proximal humerus fracture at that time. This went on to being treated by another physician at an other facility. Family says that she was seen by him twice and cleared. There was some discussion o n whether or not she would like to have physical therapy, but she says that her arm works fine for he r purposes. She has elevation abduction of 90 degrees. She can use it for functional activities. T he patient and family do not really feel like they would even consider doing physical therapy with he r function at this time. I am told to see her because she apparently fell. X-rays were taken which demonstrated a fracture, listed as subacute by the radiologist. Physical Examination: Her arm does move as a unit. She has no pain with palpation of the shoulder or with range of motion of the shoulder up to available range. Assessment: A 74-year-old female now with a proximal humerus fracture which apparently occurred in and now currently asymptomatic and doing well. No need for any operative intervention. No need t o keep her in the hospital from the standpoint of her shoulder. /GITA Voice ID: [id number] Report ID: [id number]
--- NOTE | 2019-06-03 01:04 | P.DS ---
Discharge Date: 06/02/19 Disposition: ROUTINE DISCHARGE Discharge Condition: GOOD Reason for Admission: Status post multiple falls Consultations: Orthopedics - Problems (1) Fall Status: Acute Qualifiers: Encounter type: initial encounter Qualified Code(s): W19.XXXA - Unspecified fall, initial encounter (2) Left humeral fracture Status: Acute Qualifiers: Encounter type: sequela Fracture type: closed Fracture alignment: nondisplaced (3) Syncope Onset Date: 10/19/17 Status: Acute (4) Weakness Onset Date: 10/19/17 Status: Acute (5) Hypertension Onset Date: 05/18/16 Status: Chronic Qualifiers: Hypertension type: essential hypertension Qualified Code(s): I10 - Essential (primary) hypertension Brief History of Present Illness: Patient is a 74-year-old female who comes into the hospital after falling on numerous occasions. She apparently has been dizzy and has not had unsteady gait. Patient's family felt like it was related to patient having a urinary tract infection. Patient has had dysuria. In the ER patient had a traumagram as well. No significant internal bleeding. There is a report that states that patient has an impacted left humeral fracture. Will place a splint and Consult orthopedic for left humeral fracture. Hospital Course: Patient had a fall with a questionable humeral fracture which was found to be cold. This is healing. Patient has good range of motion and can follow-up as an outpatient for continued treatment. Patient will need physical therapy as an outpatient. Patient can be discharged with outpatient follow-up with physical therapy and orthopedic surgery. Vital Signs/Physical Exam: Temp Pulse Resp BP Pulse Ox 98 F 64 16 145/60 H 99 06/02/19 12:00 06/02/19 12:00 06/02/19 12:00 06/02/19 12:00 06/02/19 12:00 General: Alert, Oriented x3 Laboratory Data at Discharge: WBC 8.2 K/uL (4.3-10.9) 06/01/19 03:07 Hgb 12.9 g/dL (12.0-15.0) 06/01/19 03:07 Hct 38.2 % (36.0-45.0) 06/01/19 03:07 Plt Count 283 K/uL (152-406) 06/01/19 03:07 PT 11.7 SECONDS (9.5-12.5) 06/01/19 03:07 INR 0.99 06/01/19 03:07 Sodium 140 mmol/L (136-145) 06/01/19 03:07 Potassium 3.7 mmol/L (3.5-5.1) 06/01/19 03:07 BUN 19 mg/dL (7-18) H 06/01/19 03:07 Creatinine 1.17 mg/dL (0.55-1.3) 06/01/19 03:07 Glucose 109 mg/dL (74-106) H 06/01/19 03:07 Magnesium 2.0 mg/dL (1.8-2.4) 06/01/19 03:07 Total Bilirubin 0.6 mg/dL (0.2-1.0) 06/01/19 03:07 AST 13 U/L (15-37) L 06/01/19 03:07 ALT 20 U/L (12-78) 06/01/19 03:07 Alkaline Phosphatase 121 U/L (45-117) H 06/01/19 03:07 Troponin I < 0.02 ng/mL (0.0-0.045) 06/01/19 13:20 Lipase 126 U/L (73-393) 06/01/19 03:07 Home Medications: Alprazolam [Xanax] 1 mg PO DAILY PRN 07/19/15 Prasugrel HCl [Effient] 5 mg PO DAILY 07/19/15 Bumetanide [Bumex] 2 mg PO DAILY 01/25/19 Ondansetron HCl 4 mg PO BID PRN 01/25/19 Patient Discharge Instructions: OK TO DC IV AND DC HOME IF PATIENT DOES WELL WITH PHYSICAL THERAPY AND IF OKAY WITH ORTHOPEDIC. FOLLOW-UP WITH PRIMARY CARE PROVIDER IN 1-2 WEEKS. FOLLOW-UP WITH ORTHOPEDICS IN 1-2 WEEKS. RETURN TO THE ER IF SYMPTOMS WORSEN. CALL or TEXT DR. SALDANA AT [phone] IF ANY QUESTIONS REGARDING HOSPITAL STAY. PLEASE CALL THE FLOOR AT [phone] IF ANY MEDICATION OR NURSING QUESTIONS. Diet: Regular Activity: Fall precautions Followup: Eitan Shaw MD [ACTIVE - CAN ADMIT] - Time spent managing pt's care (in minutes): 25
[2019-06-03] MEDS ORDERED: PRASUGREL (EFFIENT) 10 MG TAB PO SCH (09:00)
[2019-06-03] MEDS ORDERED: PRASUGREL HCL 5 MG PO SCH (09:00)
[2019-06-03] MEDS ORDERED: BUMETANIDE 2 MG PO SCH (09:00)
[2019-06-03] MEDS ORDERED: BUMETANIDE 1 MG TABLET PO SCH (09:00)
--- NOTE | 2019-06-03 10:36 | RAD REPORT ---
EXAM DESCRIPTION: CT - Head C Spine Cap Star Britton - 06/01/2019 6:54 am CLINICAL HISTORY: The patient is 74 years old and is Female; PAIN TECHNIQUE: Axial computed tomography images of the head/brain and cervical spine with intravenous co ntrast. Sagittal and coronal reformatted images were created and reviewed. This CT exam was perfo rmed using one or more of the following dose reduction techniques: automated exposure control, adju stment of the mA and/or kV according to patient size, and/or use of iterative reconstruction techniqu e. COMPARISON: No relevant prior studies available. FINDINGS: BRAIN: Unremarkable. No hemorrhage. No edema. Normal enhancement. VENTRICLES: Unremarkable. No ventriculomegaly. SKULL: No acute fracture. SINUSES: Unremarkable as visualized. No acute sinusitis. MASTOID AIR CELLS: Unremarkable as visualized. No mastoid effusion. VERTEBRAE: The vertebral body heights and alignment are maintained. No acute fracture. DISCS/SPINAL CANAL/NEURAL FORAMINA: There is multi-level intervertebral disc height loss. There are disc-osteophyte complexes at several levels, with associated mild spinal canal narrowing. There i s also facet hypertrophy and uncovertebral joint osteophytosis, with associated multilevel neural for aminal narrowing. SOFT TISSUES: The soft tissues are normal. LUNG APICES: The lung apices are clear. IMPRESSION: 1. No acute intracranial findings. 2. Spondylosis of the cervical spine without acute findings. EXAM DESCRIPTION: CT Chest, Abdomen and Pelvis With Intravenous Contrast CLINICAL HISTORY: The patient is 74 years old and is Female; PAIN TECHNIQUE: Axial computed tomography images of the chest, abdomen and pelvis with intravenous contra st. Sagittal and coronal reformatted images were created and reviewed. This CT exam was performed using one or more of the following dose reduction techniques: automated exposure control, adjustme nt of the mA and/or kV according to patient size, and/or use of iterative reconstruction technique. COMPARISON: No relevant prior studies available. FINDINGS: CHEST: LUNGS: The lungs are clear of focal opacity, mass, or consolidation. PLEURAL SPACE: Unremarkable. No significant effusion. No pneumothorax. HEART: No cardiomegaly. No pericardial effusion. ABDOMEN: LIVER: Unremarkable. No mass. GALLBLADDER AND BILE DUCTS: No calcified stones. No ductal dilation. PANCREAS: No ductal dilation. No mass. SPLEEN: Unremarkable. ADRENALS: Unremarkable. No mass. KIDNEYS AND URETERS: Unremarkable. No hydronephrosis. No solid mass. STOMACH AND BOWEL: The stomach is not well distended. A few small bowel loops in the left upper abdomen are fluid-filled. The remainder the small bowel is decompressed. A moderate amount of stool i s present throughout the colon. There is no mucosal thickening or evidence of bowel obstruction. PELVIS: APPENDIX: No findings to suggest acute appendicitis. BLADDER: The bladder is well distended. REPRODUCTIVE: The patient is status post hysterectomy. CHEST, ABDOMEN and PELVIS: INTRAPERITONEAL SPACE: Unremarkable. No significant fluid collection. No free air. BONES/JOINTS: Acute impacted fracture of the left proximal humerus is present. Minimal degenerat mae change of the spine is noted. No other fracture is seen of the visualized axial and appendicula r skeleton. SOFT TISSUES: The soft tissues are normal. VASCULATURE: Unremarkable. No aortic aneurysm. LYMPH NODES: Unremarkable. No enlarged lymph nodes. IMPRESSION: 1. No evidence of solid organ injury on this contrasted CT of the chest, abdomen, and pelvis. 2. Acute impacted fracture of the proximal left humerus. Electronically signed by: Soila Harding MD 06/01/2019 6:22 AM CDT Due to temporary technical issues with the PACS/Fluency reporting system, reports are being signed by the in house radiologist as a courtesy to ensure prompt reporting. The interpreting radiologist is f ully responsible for the content of the report.
== END 2019-06-02 12:32 | disposition home or self-care (01) ==
LOC: ER 01:50 → ERHOLD 06:46 → 2ND 14:18
PROVIDERS: ADMIT Hospitalist; ATTEND Hospitalist
DX: S42.202A Unspecified fracture of upper end of left humerus, initial encounter for closed fracture (principal); R55 Syncope and collapse; E78.5 Hyperlipidemia, unspecified; I25.10 Atherosclerotic heart disease of native coronary artery without angina pectoris; F41.9 Anxiety disorder, unspecified; I10 Essential (primary) hypertension; W19.XXXA Unspecified fall, initial encounter
CPT/HCPCS: 96361; 93005; 87088; 85025; 87086; 80048; 36415; 83735; 85610; 80076; 87077 ×2; 87186 ×2; 81003 ×2; 84484 ×3; 83690; 83880; 70450; 72125; 71260; 74177; 71045; 73060; 97116; 97161; 97530; 96375; 96374; 99285; Q9967; J2270 ×5; J7030 ×3; J2405; G0378 ×3

== ENCOUNTER 2020-11-05 17:45 | Emergency (ER) | payer BC ==
--- NOTE | 2020-11-05 18:26 | RAD REPORT ---
EXAM DESCRIPTION: CT - [id number] - 11/05/2020 6:10 pm CLINICAL HISTORY: Trauma, head and neck injury. PAIN COMPARISON: Head C Spine Mpr Wo Con dated 10/18/2017; CT HEAD CSPINE MPR WO CONTRAST dated 11/26/2012 TECHNIQUE: Axial 5 mm thick images of the head were obtained. Axial 2 mm thick images of the cervical spine were obtained with sagittal and coronal reconstruction images generated and reviewed. All CT scans are performed using dose optimization technique as appropriate and may include automated exposure control or mA/KV adjustment according to patient size. FINDINGS: CT HEAD WITHOUT CONTRAST: Mild acute subarachnoid hemorrhage is seen in the right temporoparietal lobe. There is a moderate adj acent scalp hematoma.No shift of midline structures is evident. The paranasal sinuses and mastoids are clear.The calvarium is intact. CT CERVICAL SPINE WITHOUT CONTRAST: No fracture or subluxation.Moderate multilevel midcervical degenerative changes.No prevertebral soft tissues swelling is identified. IMPRESSION: Mild acute right-sided posttraumatic subarachnoid hemorrhage noted involving the right t emporoparietal region.No midline shift is evident. The findings were discussed with Dr Salazar in the ER on 11/05/2020 at 6:22 p.m. by telephone.
--- NOTE | 2020-11-05 18:29 | ER ---
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 ll1 Hit R side of head on tub. + LOC. + blood thinners. Large hematoma to R forehead. Trauma alert called, er room 7. Coronavirus screen: Client denies travel out of the [place] in the last 14 days. At this time, the client does not indicate any symptoms associated with coronavirus-19. Ebola Screen: Patient denies travel to an Ebola-affected area in the 21 days before illness onset. 17:58 Method Of Arrival: Wheelchair ll1 18:01 Initial Sepsis Screen: Does the patient meet any 2 criteria? No. Patient's initial ll1 sepsis screen is negative. Does the patient have a suspected source of infection? Yes: Other: fall, head injury. Risk Assessment: Do you want to hurt yourself or someone else? Patient reports no desire to harm self or others. Onset of symptoms was November 05, 2020. 18:01 Acuity: YUDELKA 2 ll1 18:15 Care prior to arrival: None. Mechanism of Injury: Fall from standing position. Trauma jd3 event details: Injury occurred in the [facility]. Trauma Activation: Alert Physician: ED Physician; Name: Martin; Notified At: 18:15; Arrived At: 18:15 Physician: General Surgeon; Name: ; Notified At: 18:15; Arrived At: Physician: Radiology; Name: Dayday; Notified At: 18:15; Arrived At: 18:15 Physician: Respiratory; Name: ; Notified At: 18:15; Arrived At: Physician: Lab; Name: ; Notified At: 18:15; Arrived At: Historical: - Allergies: 18:01 Compazine; ll1 18:01 Latex, Natural Rubber; ll1 18:01 Levofloxacin; ll1 18:01 Phenergan; ll1 18:01 Toradol; ll1 - PMHx: 18:01 Anxiety; ll1 - PSHx: 18:01 Heart stents; Hysterectomy; Knee surgery; Tubal ligation; ll1 - Immunization history:: Flu vaccine is not up to date. - Social history:: Smoking status: Patient denies any tobacco usage or history of. - Immunization history: Last tetanus immunization: unknown. Screenin:16 Abuse screen: Denies threats or abuse. Nutritional screening: No deficits noted. jd3 Tuberculosis screening: No symptoms or risk factors identified. Fall Risk Fall in past 12 months (25 points). Ambulatory Aid- None/Bed Rest/Nurse Assist (0 pts). Gait- Normal/Bed Rest/Wheelchair (0 pts) Mental Status- Oriented to own ability (0 pts). [place] Fall Scale indicates Low Risk Score (25-44 pts). Fall prevention measures have been instituted. Side Rails Up X 2 Placed close to Nursing Station Frequent Obs/Assesments occuring. Primary Survey: 18:11 NO uncontrolled hemorrhage observed. A: The patient is alert. Airway: patent, No jd3 supplemental oxygen in use on arrival. Oral cavity: clear. Breathing/Chest: Respiratory pattern: regular, Respiratory effort: spontaneous, unlabored, Breath sounds: clear, bilaterally. Chest inspection: symmetrical rise and fall of the chest. Circulation: Heart tones present. Pulses: palpable right radial artery, right dorsalis pedis artery, left radial artery and left dorsalis pedis artery. Skin color: pink, Skin temperature: warm. Disability Alert. Exposure/Environment: All clothing and personal items were removed. Forensic evidence collection is not deemed to be indicated at this time. Items placed in patient belonging bag. There is no evidence of uncontrolled external bleeding. Obvious injury(ies) are noted at this time: hematoma noted to the right side of forehead with some bruising A warming method has been applied: A warm blanket has been provided to the patient. 18:50 Reassessment Airway Airway Patent Oxygen No O2 Oral cavity Clear Trachea Midline jd3 Breathing/Chest Respiratory pattern Regular Respiratory effort Spontaneous Unlabored Breath sounds Clear Chest inspection Symmetrical Circulation Heart rhythm Sinus rhythm Heart tones Present Pulses Palpable Color [place] Temperature Warm Disability Alert. Secondary Survey: 18:13 HEENT: Head Other hematoma noted to right side of forehead with bruising. jd3 Gastrointestinal: Abdomen is soft, non-distended, Bowel sounds present in all quadrants. Palpation No deficit noted. : No signs and/or symptoms were reported regarding the genitourinary system. Musculoskeletal: Circulation, motion, and sensation intact. Range of motion: intact in all extremities. Assessment: 18:09 General: Appears in no apparent distress. uncomfortable, Behavior is cooperative, jd3 appropriate for age, anxious. Pain: Quality of pain is described as aching, tender. Neuro: Level of Consciousness is awake, alert, obeys commands, Oriented to person, place, time, situation, Pupils are PERRLA. EENT: No signs and/or symptoms were reported regarding the EENT system. Cardiovascular: Denies chest pain, Heart tones present Capillary refill < 3 seconds Patient's skin is warm and dry. Respiratory: Airway is patent Respiratory effort is even, unlabored, Respiratory pattern is regular, symmetrical, Breath sounds are clear bilaterally. Denies cough, shortness of breath. GI: No signs and/or symptoms were reported involving the gastrointestinal system. : No signs and/or symptoms were reported regarding the genitourinary system. Derm: Skin is intact, Skin is dry, Skin is normal, Skin temperature is warm bruising noted to right side of forehead with a egg sized hematoma. Musculoskeletal: Circulation, motion, and sensation intact. Range of motion: intact in all extremities. 18:32 Reassessment: Patient appears in no apparent distress at this time. Patient and/or iw family updated on plan of care and expected duration. Pain level reassessed. Patient is alert, oriented x 3, equal unlabored respirations, skin warm/dry/pink. 18:57 Reassessment: Patient appears in no apparent distress at this time. Patient and/or jd3 family updated on plan of care and expected duration. Pain level reassessed. Patient is alert, oriented x 3, equal unlabored respirations, skin warm/dry/pink. report given Chiquis DIAL. 19:48 Reassessment: report given to [facility], patient in good condition. aox4, iv mg2 intact. Vital Signs: 17:58 BP 156 / 65; Pulse 89; Resp 18; Temp 98.0; Pulse Ox 98% ; Weight 67.59 kg; Height 5 ft. ll1 2 in. (157.48 cm); Pain 10/10; 18:51 BP 152 / 73; Pulse 78; Resp 15 S; Pulse Ox 98% on R/A; jd3 19:49 BP 150 / 69; Pulse 70; Resp 18; Temp 98; Pulse Ox 99% on R/A; mg2 17:58 Body Mass Index 27.25 (67.59 kg, 157.48 cm) ll1 [place] Coma Score: 18:10 Eye Response: spontaneous(4). Verbal Response: oriented(5). Motor Response: obeys ambrocio commands(6). Total: 15. 18:16 Eye Response: spontaneous(4). Verbal Response: oriented(5). Motor Response: obeys jd3 commands(6). Total: 15. 18:51 Eye Response: spontaneous(4). Verbal Response: oriented(5). Motor Response: obeys jd3 commands(6). Total: 15. 19:50 Eye Response: spontaneous(4). Verbal Response: oriented(5). Motor Response: obeys mg2 commands(6). Total: 15. Trauma Score (Adult): 18:16 Eye Response: spontaneous(1); Verbal Response: oriented(1); Motor Response: obeys jd3 commands(2); Systolic BP: > 89 mm Hg(4); Respiratory Rate: 10 to 29 per min(4); Kenan Score: 15; Trauma Score: 12 18:51 Eye Response: spontaneous(1); Verbal Response: oriented(1); Motor Response: obeys jd3 commands(2); Systolic BP: > 89 mm Hg(4); Respiratory Rate: 10 to 29 per min(4); Paradox Score: 15; Trauma Score: 12 19:50 Eye Response: spontaneous(1); Verbal Response: oriented(1); Motor Response: obeys mg2 commands(2); Systolic BP: > 89 mm Hg(4); Respiratory Rate: 10 to 29 per min(4); Kenan Score: 15; Trauma Score: 12 ED Course: 17:47 Patient arrived in ED. ds1 17:56 Guy Salazar MD is Attending Physician. ambrocio 18:01 Triage completed. ll1 18:01 Arm band placed on Patient placed in an exam room, on a stretcher. ll1 18:09 Washington, Lance, RN is Primary Nurse. jd3 18:10 CT Head C Spine In Process Unspecified. EDMS 18:16 Patient maintains SpO2 saturation greater than 95% on room air. jd3 18:17 Patient has correct armband on for positive identification. Placed in gown. Bed in low jd3 position. Call light in reach. Side rails up X2. Adult w/ patient. night monitor on. Pulse ox on. NIBP on. 18:17 Thermoregulation: warm blanket given to patient. jd3 18:32 Initial lab(s) drawn, by me, sent to lab. Inserted saline lock: 20 gauge in right iw antecubital area, using aseptic technique. Blood collected. 19:16 Primary Nurse role handed off by Lance Washington RN mw2 19:40 Nori Rowland, RN is Primary Nurse. iw 19:49 No provider procedures requiring assistance completed. Patient transferred, IV remains mg2 in place. 19:51 Attending Physician role handed off by Guy Salazar MD mg2 19:51 Primary Nurse role handed off by Nori Rowland, JAYRO mg2 Administered Medications: 18:44 Drug: NS 0.9% 500 ml Route: IV; Rate: bolus; Site: right antecubital; jd3 19:57 Follow up: IV Status: Completed infusion; IV Intake: 500ml em 18:44 Drug: NS 0.9% 1000 ml Route: IV; Rate: 125 ml/hr; Site: right antecubital; jd3 19:58 Follow up: IV Status: Infusion continued upon transfer em 18:45 Drug: Zofran (Ondansetron) 4 mg Route: IVP; Site: right antecubital; jd3 19:58 Follow up: Response: No adverse reaction em 18:45 Drug: morphine 2 mg Route: IVP; Site: right antecubital; jd3 19:03 Drug: Keppra 1000 mg Route: IV; Rate: per protocol; Site: right antecubital; jd3 19:57 Drug: morphine 2 mg Route: IVP; Site: right antecubital; em 19:59 Follow up: Response: Medication administered at discharge. em Intake: 19:57 IV: 500ml; Total: 500ml. em Output: 19:49 Urine: 0ml; Total: 0ml. mg2 Outcome: 18:29 ER care complete, transfer ordered by . ambrocio 19:49 Transferred by ground EMS to [facility], Transfer form completed. mg2 19:49 Condition: stable 19:49 Instructed on the need for transfer, Demonstrated understanding of instructions. 19:49 Patient's length of stay was not longer than 2 hours. mg2 19:50 Patient left the ED. mg2 19:59 Patient left the ED. em Signatures: Dispatcher [employer] EDGuy Marcos MD MD cha Munoz, Edgar, RN RN em Radha Rock ds1 Nori Rowland RN RN iw Lance Washington RN RN Vince De La Cruz mw2 Dwight Valentine RN RN mg2 Mavis Julian RN RN ll1
--- NOTE | 2020-11-05 18:29 | EDPHYS ---
Physician Documentation [facility] Name: Mariana Flor Age: 75 yrs Sex: Female : 1945 Arrival Date: 11/05/2020 Time: 17:47 Bed 7 Private MD: ED Physician HPI: 11/05 18:07 This 75 yrs old Female presents to ER via Wheelchair with complaints of Fall ambrocio Injury, Hit Head. 18:07 Details of fall: The patient fell from an upright position, while walking. Onset: The ambrocio symptoms/episode began/occurred just prior to arrival. Associated injuries: The patient sustained injury to the head. Severity of symptoms: At their worst the symptoms were mild, moderate, in the emergency department the symptoms are unchanged. The patient has not experienced similar symptoms in the past. Historical: - Allergies: 18:01 Compazine; ll1 18:01 Latex, Natural Rubber; ll1 18:01 Levofloxacin; ll1 18:01 Phenergan; ll1 18:01 Toradol; ll1 - PMHx: 18:01 Anxiety; ll1 - PSHx: 18:01 Heart stents; Hysterectomy; Knee surgery; Tubal ligation; ll1 - Immunization history:: Flu vaccine is not up to date. - Social history:: Smoking status: Patient denies any tobacco usage or history of. - Immunization history: Last tetanus immunization: unknown. ROS: 18:07 Constitutional: Negative for fever, chills, and weight loss, Eyes: Negative for injury, ambrocio pain, redness, and discharge, ENT: Negative for injury, pain, and discharge, Neck: Negative for injury, pain, and swelling, Cardiovascular: Negative for chest pain, palpitations, and edema, Respiratory: Negative for shortness of breath, cough, wheezing, and pleuritic chest pain, Abdomen/GI: Negative for abdominal pain, nausea, vomiting, diarrhea, and constipation, Back: Negative for injury and pain, : Negative for injury, bleeding, discharge, and swelling, MS/Extremity: Negative for injury and deformity, Skin: Negative for injury, rash, and discoloration, Psych: Negative for depression, anxiety, suicide ideation, homicidal ideation, and hallucinations, Allergy/Immunology: Negative for hives, rash, and allergies, Endocrine: Negative for neck swelling, polydipsia, polyuria, polyphagia, and marked weight changes, Hematologic/Lymphatic: Negative for swollen nodes, abnormal bleeding, and unusual bruising. 18:07 Neuro: Positive for headache, loss of consciousness, of the forehead. Exam: 18:07 Constitutional: This is a well developed, well nourished patient who is awake, alert, ambrocio and in no acute distress. Head/Face: Normocephalic, atraumatic. Eyes: Pupils equal round and reactive to light, extra-ocular motions intact. Lids and lashes normal. Conjunctiva and sclera are non-icteric and not injected. Cornea within normal limits. Periorbital areas with no swelling, redness, or edema. ENT: Nares patent. No nasal discharge, no septal abnormalities noted. Tympanic membranes are normal and external auditory canals are clear. Oropharynx with no redness, swelling, or masses, exudates, or evidence of obstruction, uvula midline. Mucous membranes moist. Neck: Trachea midline, no thyromegaly or masses palpated, and no cervical lymphadenopathy. Supple, full range of motion without nuchal rigidity, or vertebral point tenderness. No Meningismus. Chest/axilla: Normal chest wall appearance and motion. Nontender with no deformity. No lesions are appreciated. Cardiovascular: Regular rate and rhythm with a normal S1 and S2. No gallops, murmurs, or rubs. Normal PMI, no JVD. No pulse deficits. Respiratory: Lungs have equal breath sounds bilaterally, clear to auscultation and percussion. No rales, rhonchi or wheezes noted. No increased work of breathing, no retractions or nasal flaring. Abdomen/GI: Soft, non-tender, with normal bowel sounds. No distension or tympany. No guarding or rebound. No evidence of tenderness throughout. Back: No spinal tenderness. No costovertebral tenderness. Full range of motion. MS/ Extremity: Pulses equal, no cyanosis. Neurovascular intact. Full, normal range of motion. Psych: Awake, alert, with orientation to person, place and time. Behavior, mood, and affect are within normal limits. 18:07 Neuro: Orientation: is normal, appropriate for stated age, no acute changes, Mentation: is normal, appropriate for stated age, no acute changes, Memory: is normal, appropriate for stated age, no acute changes, Cranial nerves: grossly normal, is grossly normal based on the patient's age, no acute changes, Cerebellar function: is grossly normal, is grossly normal based on the patient's age, no acute changes, Motor: is normal, is grossly normal based on the patient's age, no acute changes, moves all fours, Sensation: is normal, no obvious gross deficits, appropriate Gait: not tested. Babinski testing is normal, seizure activity, is not displayed by the patient. Vital Signs: 17:58 BP 156 / 65; Pulse 89; Resp 18; Temp 98.0; Pulse Ox 98% ; Weight 67.59 kg; Height 5 ft. ll1 2 in. (157.48 cm); Pain 10/10; 18:51 BP 152 / 73; Pulse 78; Resp 15 S; Pulse Ox 98% on R/A; jd3 19:49 BP 150 / 69; Pulse 70; Resp 18; Temp 98; Pulse Ox 99% on R/A; mg2 17:58 Body Mass Index 27.25 (67.59 kg, 157.48 cm) ll1 [place] Coma Score: 18:10 Eye Response: spontaneous(4). Verbal Response: oriented(5). Motor Response: obeys ambrocio commands(6). Total: 15. 18:16 Eye Response: spontaneous(4). Verbal Response: oriented(5). Motor Response: obeys jd3 commands(6). Total: 15. 18:51 Eye Response: spontaneous(4). Verbal Response: oriented(5). Motor Response: obeys jd3 commands(6). Total: 15. 19:50 Eye Response: spontaneous(4). Verbal Response: oriented(5). Motor Response: obeys mg2 commands(6). Total: 15. Trauma Score (Adult): 18:16 Eye Response: spontaneous(1); Verbal Response: oriented(1); Motor Response: obeys jd3 commands(2); Systolic BP: > 89 mm Hg(4); Respiratory Rate: 10 to 29 per min(4); Kenan Score: 15; Trauma Score: 12 18:51 Eye Response: spontaneous(1); Verbal Response: oriented(1); Motor Response: obeys jd3 commands(2); Systolic BP: > 89 mm Hg(4); Respiratory Rate: 10 to 29 per min(4); [place] Score: 15; Trauma Score: 12 19:50 Eye Response: spontaneous(1); Verbal Response: oriented(1); Motor Response: obeys mg2 commands(2); Systolic BP: > 89 mm Hg(4); Respiratory Rate: 10 to 29 per min(4); [place] Score: 15; Trauma Score: 12 MDM: 17:56 Patient medically screened. ambrocio 18:10 Differential diagnosis: Contusion of Hematoma on head. Differential diagnosis: closed ambrocio head injury, contusion. Data reviewed: vital signs, nurses notes, radiologic studies, CT scan. Data interpreted: library monitor: rate is 89 beats/min, rhythm is regular. Test interpretation: by ED physician or midlevel provider:. Counseling: I had a detailed discussion with the patient and/or guardian regarding: the historical points, exam findings, and any diagnostic results supporting the discharge/admit diagnosis. 11/05 18:26 Order name: CBC with Diff [facility] 11/05 18:26 Order name: Comprehensive Metabolic Panel [facility] 11/05 17:59 Order name: CT Head C Spine; Complete Time: 18:59 [facility] 11/05 18:26 Order name: PT-INR; Complete Time: 18:59 [facility] 11/05 18:27 Order name: CBC with Automated Diff; Complete Time: 18:59 [facility] 11/05 18:27 Order name: Comprehensive Metabolic Panel [facility] 11/05 18:07 Order name: Ice pack; Complete Time: 18:18 [facility] 11/05 18:58 Order name: EKG; Complete Time: 18:59 [facility] 11/05 18:58 Order name: EKG - Nurse/Tech; Complete Time: 19:48 [facility] Administered Medications: 18:44 Drug: NS 0.9% 500 ml Route: IV; Rate: bolus; Site: right antecubital; jd3 19:57 Follow up: IV Status: Completed infusion; IV Intake: 500ml em 18:44 Drug: NS 0.9% 1000 ml Route: IV; Rate: 125 ml/hr; Site: right antecubital; jd3 19:58 Follow up: IV Status: Infusion continued upon transfer em 18:45 Drug: Zofran (Ondansetron) 4 mg Route: IVP; Site: right antecubital; jd3 19:58 Follow up: Response: No adverse reaction em 18:45 Drug: morphine 2 mg Route: IVP; Site: right antecubital; jd3 19:03 Drug: Keppra 1000 mg Route: IV; Rate: per protocol; Site: right antecubital; jd3 19:57 Drug: morphine 2 mg Route: IVP; Site: right antecubital; em 19:59 Follow up: Response: Medication administered at discharge. em Disposition: 11/05/20 18:29 Transfer ordered to [facility]. Diagnosis are Traumatic subarachnoid hemorrhage with loss of consciousness of unspecified duration, Fall due to bumping against object. - Reason for transfer: Higher level of care. - Accepting physician is to [facility]. - Condition is Fair. - Problem is new. - Symptoms are unchanged. Signatures: Dispatcher [employer] EDGuy Marcos MD MD cha Munoz, Edgar, RN RN em Lance Washington RN RN jd3 [place], Michele, RN RN mg2 Mavis Julian RN RN ll1 Corrections: (The following items were deleted from the chart) 19:50 18:29 11/05/2020 18:29 Transfer ordered to [facility]. Diagnosis is mg2 Traumatic subarachnoid hemorrhage with loss of consciousness of unspecified duration; Fall due to bumping against object. Reason for transfer: Higher level of care. Accepting physician is to [facility]. Condition is Fair. Problem is new. Symptoms are unchanged. [facility] 19:59 19:50 11/05/2020 18:29 Transfer ordered to [facility]. Diagnosis is em Traumatic subarachnoid hemorrhage with loss of consciousness of unspecified duration; Fall due to bumping against object. Reason for transfer: Higher level of care. Accepting physician is to [facility]. Condition is Fair. Problem is new. Symptoms are unchanged. mg2
[2020-11-05 18:45] LABS: Absolute Lymphocytes (CBC) 1.8 K/uL (0.7-4.9); Basophils % 1.2 % (0-1.3); Hematocrit 38.9 % (36.0-45.0); Lymphocytes % 32.8 % (15.3-44.8); MPV 9.4 fL (7.6-11.3); Protime INR 0.8; RBC Red Blood Cell Count 4.42 M/uL (3.86-4.86)
[2020-11-05] MEDS ORDERED: MORPHINE 2 MG/ML SYR ONE ×2 (18:51→20:11)
[2020-11-05] MEDS ORDERED: NA CHLORIDE 0.9% 500 ML ONE (18:52)
[2020-11-05] MEDS ORDERED: NA CHLORIDE 0.9% 1,000 ML ONE (18:52)
[2020-11-05] MEDS ORDERED: ONDANSETRON 4 MG/2 ML VIAL ONE (18:52)
[2020-11-05] MEDS ORDERED: levETIRAcetam 1,000 MG in NA CHLORIDE 0.9% 100 ML IV ONE (19:00)
[2020-11-05 19:15] LABS: Albumin 3.9 g/dL (3.4-5.0); Bilirubin Total 0.2 mg/dL (0.2-1.0); Potassium 3.9 mmol/L (3.5-5.1); Protein, Total 7.9 g/dL (6.4-8.2)
[2020-11-05 20:00] VITALS: BP 150/69; TEMP 98; O2SAT 99
== END 2020-11-05 19:59 | disposition short-term general hospital (02) ==
LOC: ER 17:45
DX: S06.6X9A Traumatic subarachnoid hemorrhage with loss of consciousness of unspecified duration, initial encounter (principal); W01.198A Fall on same level from slipping, tripping and stumbling with subsequent striking against other object, initial encounter; Y93.01 Activity, walking, marching and hiking; Y92.89 Other specified places as the place of occurrence of the external cause; Z88.1 Allergy status to other antibiotic agents; Z88.5 Allergy status to narcotic agent; Z88.8 Allergy status to other drugs, medicaments and biological substances; Z91.040 Latex allergy status; Z91.048 Other nonmedicinal substance allergy status; Z95.818 Presence of other cardiac implants and grafts
CPT/HCPCS: 96361; 85025; 36415; 85610; 80053; 70450; 72125; 96375; 96374; 99285; J2270 ×2; J1953; J7040; J7030; J2405; G0390

== ENCOUNTER 2021-03-29 19:12 | Emergency (ER) | payer BC ==
--- OUTSIDE RECORDS SUMMARY | 2021-03-29 19:15 | XMS REPORT | Continuity of Care Document ---
:1945 Author Organization [facility] t Address [address] [place] [address] Dr. Ortiz [address] [place] [id number] Care Team Providers Name Role Phone Unavailable Unavailable Unavailable Problems This patient has no known problems. Allergies, Adverse Reactions, Alerts This patient has no known allergies or adverse reactions. Medications This patient has no known medications. Procedures This patient has no known procedures. Results This patient has no known results.
--- NOTE | 2021-03-29 20:37 | RAD REPORT ---
EXAM DESCRIPTION: RAD - Wrist Left 3 View - 03/29/2021 8:30 pm CLINICAL HISTORY: Fall injury;Pain COMPARISON: No comparisons FINDINGS: No gross fracture deformity is seen though a non displaced fracture involving the radial s tyloid is suspected. There is no distraction or angulation deformity. Carpal bones are normally posit ioned. There are degenerative calcifications of the triangular fibrocartilage. No foreign body or oth er soft tissue abnormality. IMPRESSION: Left radial styloid fracture without distraction.
--- NOTE | 2021-03-29 21:13 | RAD REPORT ---
EXAM DESCRIPTION: CT - Head Brain Wo Cont - 03/29/2021 8:40 pm CLINICAL HISTORY: Fall injury;Headache COMPARISON: Head C Spine Mpr Wo Con dated 11/05/2020 TECHNIQUE: Axial 5 mm thick images of the head were obtained without IV contrast. All CT scans are performed using dose optimization technique as appropriate and may include automated exposure control or mA/KV adjustment according to patient size. FINDINGS: No intracranial hemorrhage, mass, edema or shift of mid-line structures. No acute infarcti on changes seen. No abnormal extra-axial fluid collections. Ventricles are normal. Mild atrophy and c hronic ischemic changes are present with ventricles in proportion. Mastoid air cells and visualized portions of the paranasal sinuses are clear. No acute bony findings. IMPRESSION: Negative non-contrast CT head examination for acute finding.
[2021-03-29] MEDS ORDERED: ONDANSETRON 4 MG/2 ML VIAL ONE ×2 (21:47→23:22)
[2021-03-29] MEDS ORDERED: FENTANYL CITR 100 MCG/2 ML ONE (21:47)
[2021-03-29 21:58] LABS: Absolute Lymphocytes (CBC) 1.9 K/uL (0.7-4.9); Basophils % 0.8 % (0-1.3); Hematocrit 35.1 % (36.0-45.0); Lymphocytes % 27.7 % (15.3-44.8); MPV 8.8 fL (7.6-11.3)
[2021-03-29 21:59] LABS: Protime INR 0.96
[2021-03-29 22:15] LABS: Albumin 4.1 g/dL (3.4-5.0); Bilirubin Total 0.4 mg/dL (0.2-1.0); Potassium 3.5 mmol/L (3.5-5.1); Protein, Total 8.1 g/dL (6.4-8.2)
--- NOTE | 2021-03-29 22:34 | EDPHYS ---
Physician Documentation [facility] Name: Mariana Folr Age: 76 yrs Sex: Female : 1945 Arrival Date: 03/29/2021 Time: 19:15 Bed 17 Private MD: ED Physician Guy Salazar HPI: 03/29 20:25 This 76 yrs old Female presents to ER via Ambulatory with complaints of Fall pm1 Injury. 20:25 Details of fall: The patient fell from an upright position, while walking, and struck a pm1 concrete surface. Onset: The symptoms/episode began/occurred today. Associated injuries: The patient sustained injury to the head, contusion, left wrist, pain. Severity of symptoms: in the emergency department the symptoms are unchanged. The patient has experienced a previous episode, Fall in October 2020 resulting in traumatic subdural hemorrhage . The patient has not recently seen a physician. Patient missed the step at her apartment and fell down with left arm extended out. Patient hit the left side of her head on the concrete. Reports positive for LOC. Presenting with pain to left wrist, neck, and left side of forehead. Historical: - Allergies: 20:14 Compazine; ca1 20:14 Latex, Natural Rubber; ca1 20:14 Levofloxacin; ca1 20:14 Phenergan; ca1 20:14 Toradol; ca1 - PMHx: 20:14 Anxiety; ca1 - Immunization history:: Client reports having NOT received the Covid vaccine. Last tetanus immunization: unknown, Pneumococcal vaccine is up to date, Flu vaccine is not up to date. - Social history:: Smoking status: Patient denies any tobacco usage or history of. ROS: 20:25 Constitutional: Negative for fever, chills, and weight loss, Cardiovascular: Negative pm1 for chest pain, palpitations, and edema, Respiratory: Negative for shortness of breath, cough, wheezing, and pleuritic chest pain, Abdomen/GI: Negative for abdominal pain, nausea, vomiting, diarrhea, and constipation, Back: Negative for injury and pain. 20:25 Neck: Positive for of the left trapezius and right trapezius, pain. 20:25 MS/extremity: Positive for pain, swelling, tenderness, of the left wrist. 20:25 Skin: Positive for swelling, of the outer aspect of left eyebrow and left hoahaoism. 20:25 Neuro: Positive for headache, loss of consciousness, Negative for weakness. 20:25 All other systems are negative. Exam: 20:25 Constitutional: This is a well developed, well nourished patient who is awake, alert, pm1 and in no acute distress. Head/Face: Normocephalic, atraumatic. 20:25 Chest/axilla: Normal chest wall appearance and motion. Nontender with no deformity. No lesions are appreciated. 20:25 Back: No spinal tenderness. No costovertebral tenderness. Full range of motion. Skin: Warm, dry with normal turgor. Normal color with no rashes, no lesions, and no evidence of cellulitis. 20:25 Eyes: Exam is negative for acute changes, Extraocular movements: no acute changes, Conjunctiva: no acute changes, no injection. 20:25 ENT: Exam is negative for acute changes, Mouth: Lips: normal, Oral mucosa: normal, pink and intact, moist. 20:25 Neck: C-spine: vertebral tenderness, is not appreciated, ROM/movement: no acute changes. 20:25 Cardiovascular: Exam negative for acute changes, Rate: normal, Rhythm: regular, Pulses: no pulse deficits are appreciated. 20:25 Respiratory: Exam negative for acute changes, respiratory distress, shortness of breath. 20:25 Abdomen/GI: Inspection: abdomen appears normal, Palpation: abdomen is soft and non-tender, in all quadrants. 20:25 Musculoskeletal/extremity: Extremities: grossly normal except: noted in the lateral aspect of left wrist: swelling, tenderness, There is no evidence of decreased ROM, deformity, Circulation is intact in all extremities. 20:25 Neuro: Exam negative for acute changes, Orientation: is normal, Mentation: is normal, Motor: is normal, moves all fours. Vital Signs: 20:10 BP 131 / 99; Pulse 91; Resp 18 S; Temp 97.3(TE); Pulse Ox 100% on R/A; Weight 67.13 kg ca1 (R); Height 5 ft. 2 in. (157.48 cm) (R); Pain 10/10; 23:32 BP 122 / 88; Pulse 94; Resp 16; Pulse Ox 99% on R/A; jm8 20:10 Body Mass Index 27.07 (67.13 kg, 157.48 cm) ca1 Kenan Coma Score: 21:49 Eye Response: spontaneous(4). Verbal Response: oriented(5). Motor Response: obeys jm8 commands(6). Total: 15. Trauma Score (Adult): 21:47 Eye Response: spontaneous(1); Verbal Response: oriented(1); Motor Response: obeys jm8 commands(2); Systolic BP: > 89 mm Hg(4); Respiratory Rate: 10 to 29 per min(4); Kenan Score: 15; Trauma Score: 12 MDM: 20:16 Patient medically screened. pm1 22:32 Data reviewed: vital signs. Data interpreted: Pulse oximetry: on room air is 100 %. pm1 Interpretation: normal. 22:32 Counseling: I had a detailed discussion with the patient and/or guardian regarding: the pm1 historical points, exam findings, and any diagnostic results supporting the discharge/admit diagnosis, lab results, radiology results, the need for outpatient follow up, a orthopedic surgeon, to return to the emergency department if symptoms worsen or persist or if there are any questions or concerns that arise at home. 23:23 ED course: [place]MP[place] reviewed. pm1 12 20:21 Order name: CBC with Diff; Complete Time: 22:02 pm03/29 20:21 Order name: CMP; Complete Time: 22:19 pm03/29 20:21 Order name: CT Head Brain wo Cont; Complete Time: 21:15 pm03/29 20:21 Order name: Wrist Left (3 View) XRAY; Complete Time: 21:08 pm03/29 20:21 Order name: PT-INR; Complete Time: 22:19 pm03/29 20:21 Order name: IV Saline Lock; Complete Time: 21:46 pm03/29 20:22 Order name: Ice pack; Complete Time: 21:46 pm03/29 21:08 Order name: Sugar Tong Forearm Splint; Complete Time: 22:55 pm03/29 22:36 Order name: Sling; Complete Time: 22:55 pm1 Administered Medications: 21:46 Drug: fentaNYL (PF) 25 mcg Route: IVP; Site: right antecubital; jm8 21:57 Follow up: Response: No adverse reaction jm8 21:46 Drug: Zofran (Ondansetron) 4 mg Route: IVP; Site: right antecubital; jm8 21:57 Follow up: Response: No adverse reaction jm8 23:08 Drug: morphine 4 mg Route: IVP; Site: right antecubital; jm8 23:30 Follow up: Response: No adverse reaction jm8 23:08 Drug: Zofran (Ondansetron) 4 mg Route: IVP; Site: right antecubital; jm8 23:30 Follow up: Response: No adverse reaction jm8 Disposition: 03/30 13:20 Co-signature as Attending Physician, Guy Salazar MD I agree with the assessment and ambrocio plan of care. Disposition Summary: 03/29/21 22:33 Discharge Ordered Location: Home pm1 Problem: new pm1 Symptoms: have improved pm1 Condition: Stable pm1 Diagnosis - Nondisplaced fracture of left radial styloid process, initial encounter for closed pm1 fracture - Fall on same level from slipping, tripping and stumbling with subsequent striking pm1 against object - Unspecified injury of head, initial encounter pm1 Followup: pm1 - With: Emergency Department - When: As needed - Reason: Worsening of condition Followup: pm1 - With: Private Physician - When: 2 - 3 days - Reason: Recheck today's complaints, Continuance of care, Re-evaluation by your physician Discharge Instructions: - Discharge Summary Sheet pm1 - Contusion pm1 - Head Injury, Adult pm1 - Fall Prevention in the Home, Adult pm1 - Radial Fracture pm1 - Cast or Splint Care, Adult pm1 Forms: - Medication Reconciliation Form pm1 - Thank You Letter pm1 - Antibiotic Education pm1 - Prescription Opioid Use pm1 Prescriptions: - Tramadol 50 mg Oral Tablet - take 1 tablet by ORAL route every 8 hours as needed; 12 tablet; Refills: 0, pm1 Product Selection Permitted Signatures: Dispatcher [employer] Guy Dawson MD MD cha Marinas, Patrick, NP [employer] pm1 Zee Fonseca RN RN ca1 Malcaba, Joseph, RN RN jm8
--- NOTE | 2021-03-29 22:34 | ER ---
Nurse's Notes [facility] Name: Mariana Flor Age: 76 yrs Sex: Female : 1945 Arrival Date: 03/29/2021 Time: 19:15 Bed 17 Private MD: Diagnosis: Nondisplaced fracture of left radial styloid process, initial encounter for closed fracture;Fall on same level from slipping, tripping and stumbling with subsequent striking against object;Unspecified injury of head, initial encounter Presentation: 03/29 20:10 Chief complaint: Patient states: Tripped and fell on the concrete around 1600 today. ca1 Hit L side of head. Reports LOC. On blood thinner Prasugrel. Pain, swelling on L wrist, L duron, L forearm. Coronavirus screen: Client denies travel out of the [place] in the last 14 days. At this time, the client does not indicate any symptoms associated with coronavirus-19. Ebola Screen: Patient negative for fever greater than or equal to 101.5 degrees Fahrenheit, and additional compatible Ebola Virus Disease symptoms Patient denies exposure to infectious person. Patient denies travel to an Ebola-affected area in the 21 days before illness onset. No symptoms or risks identified at this time. Initial Sepsis Screen: Does the patient meet any 2 criteria? No. Patient's initial sepsis screen is negative. Does the patient have a suspected source of infection? No. Patient's initial sepsis screen is negative. Risk Assessment: Do you want to hurt yourself or someone else? Patient reports no desire to harm self or others. 20:10 Method Of Arrival: Ambulatory ca1 20:10 Acuity: YUDELKA 2 ca1 20:10 Onset of symptoms was March 29, 2021 at 16:00. ca1 21:48 Care prior to arrival: None. Mechanism of Injury: Fall. Trauma event details: Injury jm8 occurred: March 29, 2021. Triage Assessment: 21:47 General: Appears in no apparent distress. comfortable, Behavior is calm, cooperative, jm8 appropriate for age. Pain: Complains of pain in left arm and left wrist Pain currently is 10 out of 10 on a pain scale. EENT: No deficits noted. No signs and/or symptoms were reported regarding the EENT system. Neuro: No deficits noted. Level of Consciousness is awake, alert, obeys commands, Oriented to person, place, time. Cardiovascular: No deficits noted. Respiratory: No deficits noted. Airway is patent Trachea midline Respiratory effort is even, unlabored, Respiratory pattern is regular, symmetrical. GI: No deficits noted. No signs and/or symptoms were reported involving the gastrointestinal system. : No deficits noted. No signs and/or symptoms were reported regarding the genitourinary system. Derm: No deficits noted. No signs and/or symptoms reported regarding the dermatologic system. Musculoskeletal: Reports pain in left hand and left arm. Trauma Activation: Not Applicable Physician: ED Physician; Name: ; Notified At: ; Arrived At: Physician: General Surgeon; Name: ; Notified At: ; Arrived At: Physician: Radiology; Name: ; Notified At: ; Arrived At: Physician: Respiratory; Name: ; Notified At: ; Arrived At: Physician: Lab; Name: ; Notified At: ; Arrived At: Historical: - Allergies: 20:14 Compazine; ca1 20:14 Latex, Natural Rubber; ca1 20:14 Levofloxacin; ca1 20:14 Phenergan; ca1 20:14 Toradol; ca1 - PMHx: 20:14 Anxiety; ca1 - Immunization history:: Client reports having NOT received the Covid vaccine. Last tetanus immunization: unknown, Pneumococcal vaccine is up to date, Flu vaccine is not up to date. - Social history:: Smoking status: Patient denies any tobacco usage or history of. Screenin:46 Abuse screen: Denies threats or abuse. Denies injuries from another. Nutritional jm8 screening: No deficits noted. Tuberculosis screening: No symptoms or risk factors identified. Fall Risk Fall in past 12 months (25 points). Primary Survey: 21:46 NO uncontrolled hemorrhage observed. A: The patient is alert. Airway: patent. jm8 Breathing/Chest: Respiratory pattern: regular, Respiratory effort: spontaneous. Circulation: Skin color: pink, Skin temperature: warm. Disability Alert. Exposure/Environment: There is no evidence of uncontrolled external bleeding. No obvious injuries are noted at this time. A warming method has been applied: A warm blanket has been provided to the patient. Reassessment Airway Airway Patent Breathing/Chest Respiratory pattern Regular Respiratory effort Spontaneous Circulation Color [place] Temperature Warm Disability Alert. Vital Signs: 20:10 BP 131 / 99; Pulse 91; Resp 18 S; Temp 97.3(TE); Pulse Ox 100% on R/A; Weight 67.13 kg ca1 (R); Height 5 ft. 2 in. (157.48 cm) (R); Pain 10/10; 23:32 BP 122 / 88; Pulse 94; Resp 16; Pulse Ox 99% on R/A; jm8 20:10 Body Mass Index 27.07 (67.13 kg, 157.48 cm) ca1 Kenan Coma Score: 21:49 Eye Response: spontaneous(4). Verbal Response: oriented(5). Motor Response: obeys jm8 commands(6). Total: 15. Trauma Score (Adult): 21:47 Eye Response: spontaneous(1); Verbal Response: oriented(1); Motor Response: obeys jm8 commands(2); Systolic BP: > 89 mm Hg(4); Respiratory Rate: 10 to 29 per min(4); Kenan Score: 15; Trauma Score: 12 ED Course: 19:15 Patient arrived in ED. wm 20:13 Triage completed. ca1 20:14 Arm band placed on right wrist. ca1 20:15 Richmond Ness NP is PHCP. pm1 20:15 Guy Salazar MD is Attending Physician. pm1 20:31 Wrist Left (3 View) XRAY In Process Unspecified. EDMS 20:40 CT Head Brain wo Cont In Process Unspecified. EDMS 21:49 Patient has correct armband on for positive identification. Bed in low position. Call jm8 light in reach. Side rails up X2. Adult w/ patient. 21:49 Patient maintains SpO2 saturation greater than 95% on room air. Thermoregulation: warm jm8 blanket given to patient. 21:50 Inserted saline lock: 20 gauge in right antecubital area, using aseptic technique. jm8 22:49 Orthoglass splint: Sugar tong splint applied on left arm. dh4 23:30 No provider procedures requiring assistance completed. IV discontinued, intact, jm8 bleeding controlled, No redness/swelling at site. Administered Medications: 21:46 Drug: fentaNYL (PF) 25 mcg Route: IVP; Site: right antecubital; jm8 21:57 Follow up: Response: No adverse reaction jm8 21:46 Drug: Zofran (Ondansetron) 4 mg Route: IVP; Site: right antecubital; jm8 21:57 Follow up: Response: No adverse reaction jm8 23:08 Drug: morphine 4 mg Route: IVP; Site: right antecubital; jm8 23:30 Follow up: Response: No adverse reaction jm8 23:08 Drug: Zofran (Ondansetron) 4 mg Route: IVP; Site: right antecubital; jm8 23:30 Follow up: Response: No adverse reaction jm8 Intake: 21:49 PO: 0ml; Total: 0ml. jm8 Outcome: 22:33 Discharge ordered by MD. pm1 23:31 Discharged to home via wheelchair. jm8 23:31 Condition: good 23:31 Discharge instructions given to patient, family, Instructed on discharge instructions, follow up and referral plans. medication usage, Demonstrated understanding of instructions, follow-up care, medications. 23:31 Patient's length of stay was not longer than 2 hours. 23:32 Patient left the ED. jm8 Signatures: Dispatcher [employer] EDMS Richmond Ness NP [employer] pm1 Zee Fonseca RN RN [facility] Henry Pratt [facility] Charles Crabtree RN RN jm8 Tali Christianson
[2021-03-29] MEDS ORDERED: MORPHINE 4 MG/ML SYR ONE (23:22)
[2021-03-29 23:42] VITALS: BP 131/99; TEMP 97.3; O2SAT 100
== END 2021-03-29 23:32 | disposition home or self-care (01) ==
LOC: ER 19:12
PROC: 2W3DX1Z Immobilization of Left Lower Arm using Splint (ICD-10-PCS; principal; 2021-03-29)
DX: S52.515A Nondisplaced fracture of left radial styloid process, initial encounter for closed fracture (principal); W01.10XA Fall on same level from slipping, tripping and stumbling with subsequent striking against unspecified object, initial encounter; Z88.1 Allergy status to other antibiotic agents; Z88.3 Allergy status to other anti-infective agents; Z88.5 Allergy status to narcotic agent; Z88.8 Allergy status to other drugs, medicaments and biological substances; Z91.040 Latex allergy status; Z91.048 Other nonmedicinal substance allergy status
CPT/HCPCS: 85025; 36415; 85610; 80053; 70450; 73110; 29125; J3010; J2405 ×2; 96374; 96375; 99284

== ENCOUNTER 2023-10-17 01:21 | Observation (INO) | payer OTHER ==
--- OUTSIDE RECORDS SUMMARY | 2023-10-17 01:25 | XMS REPORT | Continuity of Care Document ---
Author Name Unknown Address [address] [place] [address] [employer] Address [address] [place] [address] [place] [id number] Care Team Providers Care R And D Lab Technician Name Role Phone Unavailable Unavailable Unavailable
[2023-10-17] MEDS ORDERED: ASPIRIN 81 MG CHEWABLE TABLET ONE (02:28)
[2023-10-17] MEDS ORDERED: MORPHINE 4 MG/ML SYR ONE (02:28)
[2023-10-17] MEDS ORDERED: ONDANSETRON 4 MG/2 ML VIAL ONE (02:28)
[2023-10-17 03:17] LABS: Protime INR 0.98
[2023-10-17 03:19] LABS: Absolute Lymphocytes (CBC) 2.3 K/uL (0.7-4.9); Hematocrit 37.7 % (36.0-45.0); Lymphocytes % 38.5 % (15.3-44.8); MCV 89.5 fL (80-100); MPV 9.2 fL (7.6-11.3); Platelets 246 thou/uL (152-406); RBC Red Blood Cell Count 4.22 M/uL (3.86-4.86)
[2023-10-17 03:33] LABS: Albumin 3.8 g/dL (3.4-5.0); Bilirubin Direct 0.2 mg/dL (0-0.2); Bilirubin Indirect, Calculated 0.4 mg/dL (0.2-0.8); Bilirubin Total 0.6 mg/dL (0.2-1.0); Magnesium 2.1 mg/dL (1.6-2.4); Potassium 3.3 mEq/L (3.5-5.1); Protein, Total 7.5 g/dL (6.4-8.2); Troponin High Sensitivity 5.6 pg/mL (<58.9)
[2023-10-17] MEDS ORDERED: ACETAMINOPHEN 325 MG TABLET PO PRN (04:50)
[2023-10-17] MEDS ORDERED: ONDANSETRON 4 MG/2 ML VIAL IV PRN (04:50)
--- NOTE | 2023-10-17 04:52 | ER ---
Nurse's Notes [facility] Name: Mariana Flor Age: 78 yrs Sex: Female : 1945 Arrival Date: 10/17/2023 Time: 01:21 Bed 18 Private MD: Diagnosis: Angina pectoris, unspecified Presentation: 10/17 01:41 Chief complaint: Patient states: sudden onset center chest pain at 0030. i took an lg3 Ambien before bed and i don't normally do but i also have a cardiac stent so im not sure what's going on. reports nausea. Coronavirus screen: Client denies travel out of the [place] in the last 14 days. At this time, the client does not indicate any symptoms associated with coronavirus-19. Ebola Screen: No symptoms or risks identified at this time. Initial Sepsis Screen: Does the patient meet any 2 criteria? No. Patient's initial sepsis screen is negative. Does the patient have a suspected source of infection? No. Patient's initial sepsis screen is negative. Risk Assessment: Do you want to hurt yourself or someone else? Patient reports no desire to harm self or others. Onset of symptoms was October 17, 2023 at 00:30. 01:41 Method Of Arrival: Wheelchair lg3 01:41 Acuity: YUDELKA 3 lg3 Triage Assessment: 01:44 General: Appears in no apparent distress. comfortable, Behavior is calm, cooperative, lg3 confused. Pain: Complains of pain in chest Pain does not radiate. Pain currently is 9 out of 10 on a pain scale. Quality of pain is described as pressure. EENT: No deficits noted. No signs and/or symptoms were reported regarding the EENT system. Neuro: No deficits noted. Turpin Agitation-Sedation Scale (RASS): 0 - Alert and Calm Level of Consciousness is awake, obeys commands, confused, Oriented to person, place, situation. Cardiovascular: No deficits noted. Reports chest pain, Capillary refill < 3 seconds Clubbing of nail beds is absent JVD is absent Patient's skin is warm and dry. Chest pain quality is pressure. Respiratory: No deficits noted. Airway is patent Respiratory effort is even, unlabored, Respiratory pattern is regular, symmetrical. GI: No deficits noted. No signs and/or symptoms were reported involving the gastrointestinal system. : No deficits noted. No signs and/or symptoms were reported regarding the genitourinary system. Derm: No deficits noted. No signs and/or symptoms reported regarding the dermatologic system. Skin is intact, is healthy with good turgor, Skin is dry, Skin is normal, Skin temperature is warm. Musculoskeletal: No deficits noted. No signs and/or symptoms reported regarding the musculoskeletal system. Circulation, motion, and sensation intact. Range of motion: intact in all extremities. Historical: - Allergies: 01:44 Compazine; lg3 01:44 Latex; lg3 01:44 Levofloxacin; lg3 01:44 Toradol; lg3 - Home Meds: 01:44 Bumex Oral [Active]; Doxycycline Oral [Active]; Klonopin Oral [Active]; lg3 - PMHx: :44 Anxiety; fluid retention (Anxiety); lg3 - PSHx: 01:44 Total abdominal hysterectomy; cardiac stent; lg3 - Immunization history:: Adult Immunizations up to date, Client reports receiving the 2nd dose of the Covid vaccine, Flu vaccine is not up to date. - Social history:: Smoking status: Patient denies any tobacco usage or history of. Patient/guardian denies using alcohol, street drugs. - Family history:: not pertinent. Screenin:53 [facility] ED Fall Risk Assessment (Adult) History of falling in the last 3 months, lg3 including since admission No falls in past 3 months (0 pts). Abuse screen: Denies threats or abuse. Denies injuries from another. Nutritional screening: No deficits noted. Tuberculosis screening: No symptoms or risk factors identified. Assessment: 01:53 General: see triage assessment. Pain: Pain began suddenly, 1 hour ago. lg3 02:50 Reassessment: Patient appears in no apparent distress at this time. No changes from lg3 previously documented assessment. Patient and/or family updated on plan of care and expected duration. Pain level reassessed. Patient is alert, oriented x 3, equal unlabored respirations, skin warm/dry/pink. 05:20 Reassessment: Patient appears in no apparent distress at this time. No changes from lg3 previously documented assessment. Patient and/or family updated on plan of care and expected duration. Pain level reassessed. Patient is alert, oriented x 3, equal unlabored respirations, skin warm/dry/pink. Patient states symptoms have not improved. 06:00 Reassessment: Patient and/or family updated on plan of care and expected duration. Pain ha1 level reassessed. Patient is alert, oriented x 3, equal unlabored respirations, skin warm/dry/pink. Cardiovascular: Reports chest pain, pain 7/10 Capillary refill < 3 seconds Patient's skin is warm and dry. Vital Signs: 01:41 BP 151 / 74; Pulse 75; Resp 17 S; Temp 98(O); Pulse Ox 100% on R/A; Weight 58.97 kg lg3 (R); Height 5 ft. 2 in. (R); Pain 9/10; 02:50 BP 137 / 85; Pulse 55; Resp 15 S; Pulse Ox 98% on R/A; lg3 05:22 BP 125 / 60; Pulse 51; Resp 15 S; Pulse Ox 98% on R/A; lg3 06:10 BP 122 / 64; Pulse 55; Resp 18 S; Pulse Ox 98% on R/A; ha1 01:41 Body Mass Index 23.78 (58.97 kg, 157.48 cm) lg3 01:41 Pain Scale: Adult lg3 ED Course: 01:23 Patient arrived in ED. ag3 01:27 Rasheed Oswald MD is Attending Physician. sp4 01:44 Triage completed. lg3 01:44 Arm band placed on right wrist. lg3 02:33 XRAY Chest (1 view) In Process Unspecified. EDMS 02:49 Inserted saline lock: 22 gauge in right forearm, using aseptic technique. lg3 02:49 Inserted saline lock: 20 gauge in left antecubital area, using aseptic technique. Blood lg3 collected. 04:29 Taylor Mora RN is Primary Nurse. lg3 04:50 Ernie Puente MD is Hospitalizing Provider. sp4 Administered Medications: 02:49 Drug: Aspirin PO Chewable Tablet 324 mg PO once; 81 mg tablets x 4 Route: PO; lg3 05:17 Follow up: Response: No adverse reaction lg3 02:49 Drug: morphine IVP or IV 4 mg IVP once over 4 mins Route: IVP; Infused Over: 4 mins; lg3 Site: left forearm; 05:16 Follow up: Response: No adverse reaction lg3 02:49 Drug: Ondansetron IVP 4 mg IVP once; over 2 minutes Route: IVP; Site: left forearm; lg3 05:16 Follow up: Response: No adverse reaction lg3 06:12 Drug: morphine IVP or IV 2 mg IVP once over 4 mins Route: IVP; Infused Over: 4 mins; ha1 Site: left forearm; Outcome: 04:51 Decision to Hospitalize by Provider. sp4 12:44 Patient left the ED. ap3 Signatures: Dispatcher [employer] Roseann Kauffman RN RN ap3 Daina Bryant 3 Taylor Mora RN RN lg3 Юлия Gallardo RN RN ha1 Rasheed Oswald MD MD sp4 Corrections: (The following items were deleted from the chart) 01:50 01:44 Allergies: Phenergan; lg3 lg3 04:51 02:49 Inserted saline lock: 20 gauge in left forearm, using aseptic technique. Blood lg3 collected. lg3
--- NOTE | 2023-10-17 04:52 | EDPHYS ---
Physician Documentation [facility] Name: Mariana Flor Age: 78 yrs Sex: Female : 1945 Arrival Date: 10/17/2023 Time: 01:21 Bed 18 Private MD: ED Physician Rasheed Oswald HPI: 10/17 01:28 This 78 yrs old Female presents to ER via Unassigned with complaints of Gen sp4 complaint . 04:46 78-year-old female presents with complaint of acute onset chest pain 1 hour prior to sp4 arrival midsternal pressure. History of stent to LAD 08/08/2013. Historical: - Allergies: 01:44 Compazine; lg3 01:44 Latex; lg3 01:44 Levofloxacin; lg3 01:44 Toradol; lg3 - Home Meds: 01:44 Bumex Oral [Active]; Doxycycline Oral [Active]; Klonopin Oral [Active]; lg3 - PMHx: 01:44 Anxiety; fluid retention (Anxiety); lg3 - PSHx: 01:44 Total abdominal hysterectomy; cardiac stent; lg3 - Immunization history:: Adult Immunizations up to date, Client reports receiving the 2nd dose of the Covid vaccine, Flu vaccine is not up to date. - Social history:: Smoking status: Patient denies any tobacco usage or history of. Patient/guardian denies using alcohol, street drugs. - Family history:: not pertinent. ROS: 04:46 Constitutional: Negative for fever, chills, and weight loss, positive for chest pain sp4 and shortness of breath 04:46 All other systems are negative, Exam: 04:46 Constitutional: This is a well developed, well nourished patient who is awake, alert, sp4 and in no acute distress. Head/Face: Normocephalic, atraumatic. Eyes: Pupils equal round and reactive to light, extra-ocular motions intact. Lids and lashes normal. Conjunctiva and sclera are not injected. Cornea within normal limits. Periorbital areas with no swelling, redness, or edema. ENT: Nares patent. No nasal discharge, no septal abnormalities noted. Tympanic membranes are normal and external auditory canals are clear. Oropharynx with no redness, swelling, or masses, exudates, or evidence of obstruction, uvula midline. Mucous membranes moist. Neck: Trachea midline, no thyromegaly or masses palpated, and no cervical lymphadenopathy. Supple, full range of motion without nuchal rigidity, or vertebral point tenderness. Chest/axilla: Normal chest wall appearance and motion. Nontender with no deformity. No lesions are appreciated. Cardiovascular: Regular rate and rhythm with a normal S1 and S2. No gallops, murmurs, or rubs. Normal PMI, no JVD. No pulse deficits. Respiratory: Lungs have equal breath sounds bilaterally, clear to auscultation and percussion. No rales, rhonchi or wheezes noted. No increased work of breathing, no retractions or nasal flaring. Abdomen/GI: Soft, non-tender, with normal bowel sounds. No distension or tympany. No guarding or rebound. No evidence of tenderness throughout. Back: No spinal tenderness. No costovertebral tenderness. Female : Normal external genitalia. Skin: Warm, dry with normal turgor. Normal color with no rashes, no lesions, and no evidence of cellulitis. MS/ Extremity: Pulses equal, no cyanosis. Neurovascular intact. Full, normal range of motion. Neuro: Awake and alert, GCS 15, oriented to person, place, time, and situation. Cranial nerves II-XII grossly intact. Motor strength 5/5 in all extremities. Sensory grossly intact. Psych: Awake, alert, with orientation to person, positive that of emotional upset 04:46 ECG was reviewed by the Attending Physician. EKG time 0202 sp4 Vital Signs: 01:41 BP 151 / 74; Pulse 75; Resp 17 S; Temp 98(O); Pulse Ox 100% on R/A; Weight 58.97 kg lg3 (R); Height 5 ft. 2 in. (R); Pain 9/10; 02:50 BP 137 / 85; Pulse 55; Resp 15 S; Pulse Ox 98% on R/A; lg3 05:22 BP 125 / 60; Pulse 51; Resp 15 S; Pulse Ox 98% on R/A; lg3 06:10 BP 122 / 64; Pulse 55; Resp 18 S; Pulse Ox 98% on R/A; ha1 01:41 Body Mass Index 23.78 (58.97 kg, 157.48 cm) lg3 01:41 Pain Scale: Adult lg3 MDM: 02:06 Patient medically screened. sp4 04:51 Differential Diagnosis altered mental status, sepsis, flu, ACS. Data reviewed: vital 4 signs, nurses notes, old medical records, lab test result(s), EKG, radiologic studies, plain films. ED course: Patient has history of documented coronary artery disease. Patient warrants admission for rule out ACS. 10/17 01:34 Order name: Basic Metabolic Panel; Complete Time: 04:23 sp4 10/17 01:34 Order name: CBC with Diff; Complete Time: 04:23 sp4 10/17 01:34 Order name: LFT's; Complete Time: 04:23 sp4 10/17 01:34 Order name: Magnesium; Complete Time: 04:23 sp4 10/17 01:34 Order name: NT PRO-BNP; Complete Time: 04:23 sp4 10/17 01:34 Order name: PT-INR; Complete Time: 04:23 sp4 10/17 01:34 Order name: Troponin HS; Complete Time: 04:23 4 10/17 01:35 Order name: Urinalysis W/Microscopic sp4 10/17 04:29 Order name: Troponin High Sensitivity; Complete Time: 07:04 sp4 10/17 04:56 Order name: Basic Metabolic Panel EDKY 10/17 04:56 Order name: Basic Metabolic Panel EDKY 10/17 04:56 Order name: CBC with Automated Diff EDKY 10/17 04:56 Order name: CBC with Automated Diff EDKY 10/17 04:56 Order name: Troponin High Sensitivity EDKY 10/17 04:56 Order name: Troponin High Sensitivity EDKY 10/17 04:56 Order name: Troponin High Sensitivity EDKY 10/17 04:56 Order name: Troponin High Sensitivity EDKY 10/17 01:34 Order name: XRAY Chest (1 view) sp4 10/17 01:34 Order name: EKG; Complete Time: 01:35 sp4 10/17 04:56 Order name: CONS Physician Consult EDKY 10/17 01:34 Order name: Cardiac monitoring; Complete Time: 02:20 sp4 10/17 01:34 Order name: EKG - Nurse/Tech; Complete Time: 02:20 sp4 10/17 01:34 Order name: IV Saline Lock; Complete Time: 02:20 sp4 10/17 01:34 Order name: Labs collected and sent; Complete Time: 02:50 sp4 10/17 01:34 Order name: O2 Per Protocol; Complete Time: :50 sp4 10/17 01:34 Order name: O2 Sat Monitoring; Complete Time: :50 sp4 EC:46 Rate is 63 beats/min. Rhythm is regular, Normal Sinus Rhythm. QRS [place] is Normal. [place] sp4 interval is prolonged. QRS interval is normal. QT interval is normal. No Q waves. T waves are Normal. No ST changes noted. Clinical impression: No evidence of ischemia. Interpreted by me. Reviewed by me. Administered Medications: 02:49 Drug: Aspirin PO Chewable Tablet 324 mg PO once; 81 mg tablets x 4 Route: PO; lg3 05:17 Follow up: Response: No adverse reaction lg3 02:49 Drug: morphine IVP or IV 4 mg IVP once over 4 mins Route: IVP; Infused Over: 4 mins; lg3 Site: left forearm; 05:16 Follow up: Response: No adverse reaction lg3 02:49 Drug: Ondansetron IVP 4 mg IVP once; over 2 minutes Route: IVP; Site: left forearm; lg3 05:16 Follow up: Response: No adverse reaction lg3 06:12 Drug: morphine IVP or IV 2 mg IVP once over 4 mins Route: IVP; Infused Over: 4 mins; ha1 Site: left forearm; Disposition Summary: 10/17/23 04:51 Hospitalization Ordered Notes: Hospitalization Status: Observation sp4 Provider: Ernie Puente sp4 Condition: Stable sp4 Problem: new sp4 Symptoms: have improved sp4 Bed/Room Type: Standard sp4 Location: Telemetry/MedSurg (observation)(10/17/23 10:45) [facility] Room Assignment: 426(10/17/23 10:45) [facility] Diagnosis - Angina pectoris, unspecified sp4 Forms: - Medication Reconciliation Form sp4 - SBAR form sp4 - Leadership Thank You Letter sp4 Signatures: Dispatcher [employer] EDTaylor Durand RN RN lg3 Юлия Gallardo RN RN ha1 Aniya Lange RN RN [id number] Kasie Borrero RN RN [id number] Rasheed Oswald MD MD sp4 Corrections: (The following items were deleted from the chart) 01:50 01:44 Allergies: Phenergan; lg3 lg3 06:49 04:51 Telemetry/MedSurg (observation) sp4 kb3 06:49 04:51 sp4 kb3 10:45 06:49 [facility] ER HOLD kb3 kc6 10:45 06:49 ERHOLD- kb3 kc6
[2023-10-17] MEDS: NA CHLORIDE 0.9% 1,000 ML IV SCH ×2 (05:00→17:39)
--- NOTE | 2023-10-17 05:01 | P.HP ---
Certification for Inpatient Patient admitted to: Observation With expected LOS: <2 Midnights Practitioner: I am a practitioner with admitting privileges, knowledge of patient current condition, hospital course, and medical plan of care. Services: Services provided to patient in accordance with Admission requirements found in Title 42 Section 412.3 of the Code of Federal Regulations Patient History Date of Service: 10/17/23 Reason for admission: Chest pain. History of Present Illness: 78-year-old female patient was medical history significant for coronary disease status post stent placement about coming to the emergency with complaint of chest pain. She was worked up with initial troponin and EKG and there is no overt concern episode of because of her prior history she was admitted for inpatient care she denies trauma, nausea, vomiting, fever, chills, rigors. Imaging study was nonrevealing. She is admitted for ACS workup. Allergies promethazine HCl [From Phenergan] Allergy (Intermediate, Verified 06/01/19 06:50) TWITCHING levofloxacin [From Levaquin] Allergy (Verified 06/01/19 06:50) Hives prochlorperazine maleate [From Compazine] Adverse Reaction (Intermediate, Verified 06/01/19 06:50) restlessness ketorolac [From Toradol] Adverse Reaction (Verified 06/01/19 06:50) Itching Latex, Natural Rubber Adverse Reaction (Verified 06/01/19 06:50) Rash Home Medications: Alprazolam [Xanax] 1 mg PO DAILY PRN 07/19/15 Prasugrel HCl [Effient] 5 mg PO DAILY 07/19/15 Bumetanide [Bumex] 2 mg PO DAILY 01/25/19 Ondansetron HCl 4 mg PO BID PRN 01/25/19 - Past Medical/Surgical History Diabetic: No -: Hyperlipidemia -: CAD -: Anxiety -: migraines -: hysterectomy -: L shoulder sx -: R knee sx -: cardiac stent X1 - Family History Mother -: Stroke Father -: Cancer Notes: CHF - Social History Alcohol use: No CD- Drugs: No Caffeine use: No Review of Systems General: Unremarkable Eyes: Unremarkable ENT: Unremarkable Respiratory: Unremarkable Cardiovascular: Chest Pain Gastrointestinal: Unremarkable Genitourinary: Unremarkable Musculoskeletal: Unremarkable Integumentary: Unremarkable Neurological: Unremarkable Lymphatics: Unremarkable Physical Examination - Physical Exam General: Alert, Oriented x3 HEENT: Atraumatic, Normocephalic Neck: Supple Respiratory: Normal air movement Cardiovascular: Regular rate/rhythm, Normal S1 S2 Gastrointestinal: Soft and benign Musculoskeletal: No swelling Neurological: Normal speech, Normal strength at 5/5 x4 extr - Studies Laboratory Data (last 24 hrs) 10/17/23 10/17/23 10/17/23 02:20 02:20 02:20 WBC 6.00 Hgb 12.9 Hct 37.7 Plt Count 246 PT 10.8 INR 0.98 Sodium 138 Potassium 3.3 L BUN 14 Creatinine 0.78 Glucose 98 Magnesium 2.1 Total Bilirubin 0.6 AST 14 L ALT 19 Alkaline Phosphatase 84 Assessment and Plan - Plan Chest pain: Concerning symptoms on presentation. ACS to be worked up with telemetry, troponin trend. Continue aspirin therapy and Effient. Cardiology consulted for management recommendation. Coronary artery disease: Patient is status post stent placement. Continue effient dose. Continue statin therapy Will obtain lipid panel for evaluation of adequacy of statin therapy. Prophylaxis: Lovenox for DVT prophylaxis CODE STATUS: Full code Disposition: Workup for chest pain and she will discharge once cleared by cardiology service. - Advance Directives Does patient have a Living Will: Yes Does patient have a Durable POA for Healthcare: Yes
[2023-10-17] MEDS ORDERED: MORPHINE 2 MG/ML SYR ONE (06:04)
[2023-10-17] MEDS: POTASSIUM CL SA 10 MEQ TAB PO SCH ×2 (09:21→11:55)
[2023-10-17] MEDS: ENOXAPARIN 40 MG/0.4 ML SQ SCH (09:21)
[2023-10-17 11:37] VITALS: BMI 23.8
--- NOTE | 2023-10-17 13:29 | P.PN ---
Subjective Date of Service: 10/17/23 Chief Complaint: Chest pain. Pt is resting comfortably in bed. Pt has slight difficulty hearing. Troponin is negative. Waiting for Cardiology eval. Review of Systems Unremarkable General: Unremarkable Eyes: Unremarkable ENT: Unremarkable Respiratory: Unremarkable Cardiovascular: Chest Pain Gastrointestinal: Unremarkable Genitourinary: Unremarkable Musculoskeletal: Unremarkable Integumentary: Unremarkable Neurological: Unremarkable Lymphatics: Unremarkable Physical Examination - Vital Signs Temperature: 97.5 F Blood Pressure: 114/44 Pulse: 46 Respirations: 14 Pulse Ox (%): 98 - Physical Exam General: Alert, In no apparent distress, Oriented x3 HEENT: Atraumatic, Normocephalic, PERRLA Neck: Supple, 2+ carotid pulse no bruit Respiratory: Clear to auscultation bilaterally, Normal air movement Cardiovascular: No edema, Normal pulses, Regular rate/rhythm, Normal S1 S2 Capillary refill: <2 Seconds Gastrointestinal: Normal bowel sounds, Soft and benign, Non-distended Musculoskeletal: No clubbing, No swelling Integumentary: No rashes, No breakdown Neurological: Normal gait, Normal speech, Normal strength at 5/5 x4 extr, Sensation intact, Cranial nerves 3-12 intact Lymphatics: No axilla or inguinal lymphadenopathy - Studies Laboratory Data (last 24 hrs) 10/17/23 10/17/23 10/17/23 02:20 02:20 02:20 WBC 6.00 Hgb 12.9 Hct 37.7 Plt Count 246 PT 10.8 INR 0.98 Sodium 138 Potassium 3.3 L BUN 14 Creatinine 0.78 Glucose 98 Magnesium 2.1 Total Bilirubin 0.6 AST 14 L ALT 19 Alkaline Phosphatase 84 Assessment And Plan - Plan Chest pain: Will r/o ACS. troponin is 5 <- 5.3 <- 5.6. Will continue, aspirin, effient, prn morphine and nitroglycerin. Waiting for Cardiology eval. Hx of Coronary artery disease: S/p stent placement. continue Effient, statin and telemetry. Will check lipid panel. DVT ppx: lovenox Code: full Dispo: pending hospital course.
[2023-10-17] MEDS: MORPHINE 2 MG/ML SYR IV PRN (16:18)
--- NOTE | 2023-10-17 18:03 | RAD REPORT ---
EXAM DESCRIPTION: RAD - Chest Single View - 10/17/2023 2:31 am CLINICAL HISTORY: CHEST PAIN COMPARISON: None TECHNIQUE: Single AP view of the chest. FINDINGS: Lung volumes adequate. Cardiac silhouette is normal in size. No pneumothorax. No large pleural effusion. No focal consolidation. No acute bony finding. Severe degenerative changes of the left shoulder. Degenerative changes of the visualized spine. IMPRESSION: No acute cardiopulmonary findings. Electronically signed by: Nikkie Shepherd MD 10/17/2023 04:56 AM OPERATIONS PLANT ATTENDANT Due to temporary technical issues with the PACS/Fluency reporting system, reports are being signed by the in house radiologists without review as a courtesy to insure prompt reporting. The interpreting radiologist is fully responsible for the content of the report.
[2023-10-17 18:49] VITALS: O2SAT 98
[2023-10-18] MEDS: NA CHLORIDE 0.9% 1,000 ML IV SCH (01:42)
[2023-10-18 06:22] LABS: Hematocrit 33.6 % (36.0-45.0); MCV 91.5 fL (80-100); RBC Red Blood Cell Count 3.67 M/uL (3.86-4.86)
[2023-10-18 06:23] LABS: Absolute Lymphocytes (CBC) 1.7 K/uL (0.7-4.9); MPV 9.5 fL (7.6-11.3); Platelets 207 thou/uL (152-406)
[2023-10-18 06:34] LABS: Potassium 4.1 mEq/L (3.5-5.1)
[2023-10-18] MEDS: ENOXAPARIN 40 MG/0.4 ML SQ SCH (07:19)
[2023-10-18] MEDS: MORPHINE 2 MG/ML SYR IV PRN ×2 (08:40→14:48)
[2023-10-18] MEDS ORDERED: REGADENOSON 0.4 MG/5 ML SYR IV ONE (09:34)
--- NOTE | 2023-10-18 11:15 | P.PN ---
Subjective Date of Service: 10/18/23 Chief Complaint: Chest pain. Pt is resting comfortably in bed. Pt has slight difficulty hearing. Troponin is negative. Will do NM stress test today. No other complaints. Review of Systems Unremarkable General: Unremarkable Eyes: Unremarkable ENT: Unremarkable Respiratory: Unremarkable Cardiovascular: Chest Pain Gastrointestinal: Unremarkable Genitourinary: Unremarkable Musculoskeletal: Unremarkable Integumentary: Unremarkable Neurological: Unremarkable Lymphatics: Unremarkable Physical Examination - Vital Signs Temperature: 98.0 F Blood Pressure: 143/64 Pulse: 49 Respirations: 16 Pulse Ox (%): 98 - Physical Exam General: Alert, In no apparent distress, Oriented x3 HEENT: Atraumatic, Normocephalic, PERRLA Neck: Supple, 2+ carotid pulse no bruit Respiratory: Clear to auscultation bilaterally, Normal air movement Cardiovascular: No edema, Normal pulses, Regular rate/rhythm, Normal S1 S2 Capillary refill: <2 Seconds Gastrointestinal: Normal bowel sounds, Soft and benign, Non-distended Musculoskeletal: No clubbing, No swelling Integumentary: No rashes, No breakdown Neurological: Normal gait, Normal speech, Normal strength at 5/5 x4 extr, Normal tone, Sensation intact, Cranial nerves 3-12 intact Lymphatics: No axilla or inguinal lymphadenopathy Assessment And Plan - Plan Chest pain: Will r/o ACS. troponin is 5 <- 5.3 <- 5.6. Will continue, aspirin, effient, prn morphine and nitroglycerin. Will do NM Stress test today. cardiology is following. Will check lipid panel. Hx of Coronary artery disease: S/p stent placement. continue Effient, statin and telemetry. Will check lipid panel. DVT ppx: lovenox Code: full Dispo: pending hospital course.
--- NOTE | 2023-10-18 11:48 | RAD REPORT ---
EXAM DESCRIPTION: NM - Rest Stress Cardiac Imaging - 10/18/2023 10:08 am CLINICAL HISTORY: Chest pain. COMPARISON: 2015 TECHNIQUE: The patient was administered 10.4 mCi of Tc 99m Sestamibi prior to resting SPECT imaging of the heart. The patient was then administered 28.9 mCi of Tc 99m Sestamibi following exercise or ph armacologic stress. Multiplanar SPECT images were reviewed. FINDINGS: Small area of diminished radiotracer activity involving apical left ventricular myocardium on rest and stress sequences probably physiologic thinning. Otherwise, there is uniformity of radiotracer uptake involving the entire left ventricular myocardium on rest and stress images. The left ventricular ejection fraction equals 70% IMPRESSION: Negative for a myocardial perfusion defect
--- NOTE | 2023-10-18 12:12 | TREADPHA ---
DX: CHEST PAIN Date of Study: 10/18/2023 Ht: 5' 2 " Wt: 130 lb 0.106 oz Consulting Physician: CHUYITA MEDICATIONS: TYLENOL, LOVENOX, MORPHINE, ZOFRAN HISTORY: 78 YEAR OLD FEMALE WITH COMPLIANTS OF CHEST PAIN. HISTORY OF HYPERTENSION, HIGH CHOLESTEROL, STENTS TIMES ONE. PHYSICIAL EXAMINATION: RESTING B.P.: 152/60 RESTING H.R.: 54 RESTING EKG: NORMAL SINUS RHYTHM, RIGHT BUNDLE BRANCH BLOCK PROTOCOL: PHARMACOLOGIC EXERCISE TIME: 3:30 B.P. AT PEAK STRESS: 173/69 IMPRESSION: LEXISCAN INJECTED. CARDIOLITE INJECTED - SEE NUCLEAR MEDICINE REPORT. NO SUPRAVENTRICULAR TACHYCARDIA, VENTRICULAR TACHYCARDIA, PREMATURE ATRIAL COMPLEXS, PREMATURE VENTRICULAR COMPLEXES NOTED. PATIENT COMPLAINTS OF CHEST PAIN. CAFFEINE DRINK WAS PROVIDED TO THE PATIENT. NO ELECTROCARDIOGRAM CHANGES WITH LEXISCAN.
[2023-10-18 13:10] VITALS: BP 137/63; TEMP 98.1
--- NOTE | 2023-10-18 14:17 | P.DS ---
Admission Date: 10/17/23 Discharge Date: 10/18/23 Disposition: ROUTINE DISCHARGE Discharge Condition: GOOD Reason for Admission: Chest pain. Brief History of Present Illness: 78-year-old female patient was medical history significant for coronary disease status post stent placement about coming to the emergency with complaint of chest pain. She was worked up with initial troponin and EKG and there is no overt concern episode of because of her prior history she was admitted for inpatient care she denies trauma, nausea, vomiting, fever, chills, rigors. Imaging study was nonrevealing. She is admitted for ACS workup. Hospital Course: Pt is a 78 yo female with past medical history of coronary disease status post stent placement who presented with chest pain. On admission, troponin was negative x3 and EKG was unremarkable. Cardiology did NM stress test which did not show any evidence of stress induced ischemia. Pt was advised to follow up with PCP and Cardiology in clinic. She was in NAD prior to discharge. Vital Signs/Physical Exam: Temp Pulse Resp BP Pulse Ox 98.1 F 55 16 137/63 98 10/18/23 12:00 10/18/23 12:00 10/18/23 12:00 10/18/23 12:00 10/18/23 12:00 Laboratory Data at Discharge: WBC 4.60 thou/uL (4.3-10.9) 10/18/23 05:39 Hgb 11.2 g/dL (12.0-15.0) L D 10/18/23 05:39 Hct 33.6 % (36.0-45.0) L 10/18/23 05:39 Plt Count 207 thou/uL (152-406) 10/18/23 05:39 PT 10.8 SECONDS (9.5-12.5) 10/17/23 02:20 INR 0.98 10/17/23 02:20 Sodium 140 mEq/L (136-145) 10/18/23 05:39 Potassium 4.1 mEq/L (3.5-5.1) D 10/18/23 05:39 BUN 20 mg/dL (7-18) H 10/18/23 05:39 Creatinine 0.85 mg/dL (0.55-1.02) 10/18/23 05:39 Glucose 134 mg/dL (74-106) H 10/18/23 05:39 Magnesium 2.1 mg/dL (1.6-2.4) 10/17/23 02:20 Total Bilirubin 0.6 mg/dL (0.2-1.0) 10/17/23 02:20 AST 14 U/L (15-37) L 10/17/23 02:20 ALT 19 U/L (13-56) 10/17/23 02:20 Alkaline Phosphatase 84 U/L (45-117) 10/17/23 02:20 Triglycerides 62 mg/dL (<150) 10/18/23 05:39 Cholesterol 214 mg/dL (<200) H 10/18/23 05:39 HDL Cholesterol 78 mg/dL (40-60) H 10/18/23 05:39 Cholesterol/HDL Ratio 2.74 10/18/23 05:39 Home Medications: Alprazolam [Xanax] 1 mg PO DAILY PRN 07/19/15 Prasugrel HCl [Effient] 5 mg PO DAILY 07/19/15 Bumetanide [Bumex] 2 mg PO DAILY 01/25/19 Ondansetron HCl 4 mg PO BID PRN 01/25/19 Physician Discharge Instructions: Continue ad ariana activity. Take home meds as prescribed. Follow up with PCP within 1 week Diet: AHA Activity: Ad ariana Followup: Speedy Krause DO, DO [Primary Care Provider] -
[2023-10-19] MEDS ORDERED: PRASUGREL (EFFIENT) 10 MG TAB PO SCH (09:00)
[2023-10-19] MEDS ORDERED: ASPIRIN 81 MG CHEWABLE TABLET PO SCH (09:00)
--- NOTE | 2023-10-19 13:35 | EKG ---
Test Date: 2023-10-17 Test Time: 02:02:22 Licensed Dispensing Optician: LOUANN MEASUREMENT RESULTS: Intervals: Rate: 63 [place]: 144 QRSD: 120 QT: 468 QTc: 478 [place]: P: 74 [place]: 144 QRS: 91 T: 50 INTERPRETIVE STATEMENTS: Normal sinus rhythm Right bundle branch block Abnormal ECG Compared to ECG 11/05/2020 19:45:10 Right bundle-branch block now present Incomplete right bundle-branch block no longer present Prolonged QT interval no longer present Electronically Signed On 10-19-23 13:24:52 WASH HOUSE SUPERVISOR by Abdullahi Cottrell
== END 2023-10-18 16:18 | disposition home or self-care (01) ==
LOC: ER 01:21 → ERHOLD 04:50 → 4TH 10:54
PROVIDERS: ADMIT Internal Medicine Nephrology; ATTEND Hospitalist
DX: R07.9 Chest pain, unspecified (principal); I25.10 Atherosclerotic heart disease of native coronary artery without angina pectoris; Z95.5 Presence of coronary angioplasty implant and graft; Z88.5 Allergy status to narcotic agent; Z91.09 Other allergy status, other than to drugs and biological substances
CPT/HCPCS: 93005; 93017; 85025 ×2; 80048 ×2; 36415 ×2; 83735; 85610; 80061; 80076; 84484 ×5; 83880; 71045; 78452; J2785; J1650; J2270 ×4; J2405 ×2; J7030 ×2; A9500; G0378 ×4

== ENCOUNTER 2023-11-27 15:43 | Inpatient (IN) | payer OTHER ==
--- OUTSIDE RECORDS SUMMARY | 2023-11-27 15:47 | XMS REPORT | Continuity of Care Document ---
Author Name Unknown Address [address] [place] [address] [employer] Address [address] [place] [address] Care Team Providers Care Authorization Rep Name Role Phone Unavailable Unavailable Unavailable
[2023-11-27] MEDS ORDERED: DIAZEPAM 10 MG/2 ML INJ SYRINGE ONE (16:41)
[2023-11-27] MEDS ORDERED: ASPIRIN 81 MG CHEWABLE TABLET ONE (16:42)
[2023-11-27] MEDS: NA CHLORIDE 0.9% 1,000 ML ONE (16:45)
[2023-11-27 16:58] LABS: Absolute Lymphocytes (CBC) 1.4 K/uL (0.7-4.9); Absolute Monocytes 0.5 K/uL (0.1-1.3); Absolute Neutrophil 3.8 K/uL (1.8-8.0); Basophils % 0.8 % (0-1.3); Eosinophils % 0.3 % (0-4.4); Hematocrit 37.9 % (36.0-45.0); Hemoglobin 12.9 g/dL (12.0-15.0); MCH 30.3 pg (27.0-35.0); MCHC 34.1 g/dL (32.0-36.0); MCV 88.9 fL (80-100); MPV 8.8 fL (7.6-11.3); Monocytes % 8.9 % (3.3-12.3); Nucleated Red Blood Cells % 0.1 % (0-0); Platelets 265 thou/uL (152-406); RBC Red Blood Cell Count 4.26 M/uL (3.86-4.86); Red Cell Distribution Width 13.3 % (12.1-15.2)
--- NOTE | 2023-11-27 17:26 | RAD REPORT ---
EXAM DESCRIPTION: Shy Single View11/27/2023 5:11 pm CLINICAL HISTORY: Syncope COMPARISON: September 2023 FINDINGS: The lungs appear clear of acute infiltrate. The heart is normal size IMPRESSION: No acute abnormalities displayed
[2023-11-27 17:27] LABS: Anion Gap 8.4 mEq/L (5.0-15.0); Potassium 3.4 mEq/L (3.5-5.1); Troponin High Sensitivity 4.8 pg/mL (<58.9)
--- NOTE | 2023-11-27 17:31 | RAD REPORT ---
EXAM DESCRIPTION: CT - Head Brain Wo Cont - 11/27/2023 5:13 pm CLINICAL HISTORY: Syncope COMPARISON: 2020 TECHNIQUE: Computed axial tomography of the head was obtained. IV contrast was not requested. All CT scans are performed using dose optimization technique as appropriate and may include automated exposure control or mA/KV adjustment according to patient size. FINDINGS: An intracranial bleed is not seen The ventricles are normal in caliber No significant hypodense areas within the brain visualized No extra-axial fluid collection is noted. Fluid within the sinuses/ mastoids is not seen IMPRESSION: No acute intracranial abnormality is seen If patient's symptoms persist MRI of the brain would be recommended
--- NOTE | 2023-11-27 17:53 | ER ---
Nurse's Notes [facility] Name: Mariana Flor Age: 78 yrs Sex: Female : 1945 Arrival Date: 11/27/2023 Time: 15:43 Bed 14 Private MD: Diagnosis: Chest pain, unspecified;Syncope Near Presentation: 11/26 15:54 Chief complaint: Pt was at pre op for a heart cath that was supposed to be done today. kd3 When the Pre- op nurses stood her up after drawing her blood she had a syncopal episode with chest pain. Pt was brought to the ED from pre OP. EKG done in triage and showed to the provider. Coronavirus screen: unknown. Ebola Screen: No symptoms or risks identified at this time. Initial Sepsis Screen: Does the patient meet any 2 criteria? No. Patient's initial sepsis screen is negative. Does the patient have a suspected source of infection? No. Patient's initial sepsis screen is negative. Risk Assessment: Do you want to hurt yourself or someone else? Patient reports no desire to harm self or others. Onset of symptoms was November 27, 2023. 15:54 Method Of Arrival: Wheelchair kd3 15:54 Acuity: YUDELKA 3 kd3 Triage Assessment: 15:56 General: Appears uncomfortable, Behavior is anxious. Pain: Complains of pain in chest. kd3 Cardiovascular: Patient's skin is warm and dry. Historical: - Allergies: 15:56 Compazine; kd3 15:56 Levofloxacin; kd3 15:56 Toradol; kd3 - PMHx: 15:56 Anxiety; fluid retention (Anxiety); kd3 - PSHx: 15:56 cardiac stent; Total abdominal hysterectomy; kd3 - Immunization history:: Adult Immunizations up to date. - Social history:: Smoking status: unknown. Screenin:39 [facility] ED Fall Risk Assessment (Adult) History of falling in the last 3 months, me1 including since admission No falls in past 3 months (0 pts) Confusion or Disorientation No (0 pts) Intoxicated or Sedated No (0 pts) Impaired Gait No (0 pts) Mobility Assist Device Used No (0 pt) Altered Elimination No (0 pt) Score/Fall Risk Level 0 - 2 = Low Risk Oriented to surroundings, Provided non-skid footwear, Hourly rounding (assess needs \T\ fall precautionary measures) done. Abuse screen: Denies threats or abuse. Nutritional screening: No deficits noted. Tuberculosis screening: No symptoms or risk factors identified. Assessment: 16:39 General: Appears uncomfortable, well groomed, well developed, well nourished, Behavior me1 is cooperative, appropriate for age, anxious, restless, Reports Pt was at pre op for a heart cath that was supposed to be done today. When the Pre- op nurses stood her up after drawing her blood she had a syncopal episode with chest pain. Pt was brought to the ED from pre OP. EKG done in triage and showed to the provider. Pain: Complains of pain in chest Pain does not radiate. Pain currently is 8 out of 10 on a pain scale. Quality of pain is described as stabbing, Pain began suddenly, Is continuous. Neuro: Level of Consciousness is awake, alert, obeys commands, Oriented to person, place, time, situation, Appropriate for age. Cardiovascular: Capillary refill < 3 seconds Patient's skin is warm and dry. Cardiovascular: Reports chest pain, shortness of breath. Respiratory: Airway is patent Trachea midline Respiratory effort is even, unlabored, Respiratory pattern is regular, symmetrical. Derm: Skin is intact, is healthy with good turgor, Skin is pale. 16:40 Reassessment: NOTIFIED DR. SINGH PATIENT HAD A SYNCOPAL EPISODE WHEN RADIOLOGY SAT db PATIENT UP FOR XRAY. PATIENT APPEARED TO HAVE A RUN OF VTACH THAT IMMEDIATELY RETURNED TO NORMAL SINUS. NEW ORDER FOR NS 1L BOLUS RECEIVIED. Vital Signs: 16:07 BP 142 / 87; Pulse 84; Resp 18; Pulse Ox 95% on R/A; db 16:15 BP 154 / 82; Pulse 68; Resp 18; Pulse Ox 100% on R/A; db 16:20 BP 142 / 87; Pulse 73; Pulse Ox 100% ; ec2 16:30 BP 145 / 78; Pulse 60; Resp 12; Pulse Ox 100% on R/A; db 16:45 BP 159 / 108; Pulse 59; Resp 18; Pulse Ox 99% on R/A; db 17:45 BP 135 / 70; Pulse 57; Resp 14; Pulse Ox 99% on R/A; me1 18:00 BP 156 / 62; Pulse 56; Resp 15; Pulse Ox 94% on R/A; me1 19:00 BP 126 / 66; Pulse 59; Resp 14; Pulse Ox 100% on R/A; me1 ED Course: 15:44 Patient arrived in ED. ra3 15:52 Faustino Singh MD is Attending Physician. ec2 15:56 Triage completed. kd3 15:56 Arm band placed on left wrist. kd3 16:02 EKG done, by ED staff, reviewed by Faustino Singh MD. kd3 16:07 Lexi Downing, RN is Primary Nurse. me1 16:39 Patient has correct armband on for positive identification. Bed in low position. Call me1 light in reach. Side rails up X2. Provided Education on: POC. Verbalized understanding. . Client placed on continuous cardiac and pulse oximetry monitoring. NIBP monitoring applied. lot attendant on. Pulse ox on. NIBP on. 16:39 No provider procedures requiring assistance completed. Patient maintains SpO2 me1 saturation greater than 95% on room air. 16:40 Inserted saline lock: 22 gauge in right forearm, using aseptic technique. Blood db collected. 16:42 Basic Metabolic Panel Sent. me1 16:42 CBC with Diff Sent. me1 16:42 NT PRO-BNP Sent. me1 16:43 Troponin HS Sent. me1 17:12 XRAY Chest (1 view) In Process Unspecified. EDMS 17:15 CT Head Brain wo Cont In Process Unspecified. EDMS 17:52 Rylan Sorensen MD is Hospitalizing Provider. ec2 23:43 Primary Nurse role handed off by Lexi Downing, JAYRO as6 [id number] 00:00 Patient admitted, IV remains in place. lg3 01:09 Taylor Mora, RN is Primary Nurse. lg3 08:36 Primary Nurse role handed off by Taylor Mora, JAYRO jl7 Administered Medications: 11/26 16:48 Drug: Aspirin PO Chewable Tablet 324 mg PO once; 81 mg tablets x 4 Route: PO; db 18:08 Follow up: Response: No adverse reaction me1 16:48 Drug: NS 0.9% IV 1000 ml IV at 1 bolus Per protocol; 1000 mL bolus Route: IV; Rate: 1 db bolus; Site: right forearm; 18:30 Follow up: Response: No adverse reaction; IV Status: Completed infusion; IV Intake: me1 1000ml 16:50 Drug: Diazepam IVP 5 mg IVP once Route: IVP; Site: right forearm; db 18:08 Follow up: Response: No adverse reaction; Anxiety decreased me1 Medication: 16:39 VIS not applicable for this client. me1 Intake: 18:30 IV: 1000ml; Total: 1000ml. me1 Outcome: 17:53 Decision to Hospitalize by Provider. ec2 11/27 00:00 Admitted to ER Hold. Please see [facility] for further documentation. lg3 Condition: stable Instructed on the need for admit, Demonstrated understanding of instructions, 09:15 Patient left the ED. iw Signatures: Dispatcher [employer] EDNori Roy, RN RN iw Lico Welch, RN RN jl7 Taylor Mora, RN RN lg3 Leighton Plummer, RN RN as6 Radha King RN RN kd3 Adeline Morfin, RN RN db Lexi Downing RN RN me1 Faustino Singh MD MD ec2 Estella Arora ra3 Corrections: (The following items were deleted from the chart) 11/26 16:39 15:54 Chief complaint: Pt was at pre op for a heart cath that was supposed to be done me1 today. When the Pre- op nurses stood her up after drawing her blood she had a syncopal episode with chest pain. Pt was brought to the ED from pre OP. EKG done in triage and showed to the provider. kd3
--- NOTE | 2023-11-27 17:53 | EDPHYS ---
Physician Documentation [facility] Name: Mariana Flor Age: 78 yrs Sex: Female : 1945 Arrival Date: 11/27/2023 Time: 15:43 Bed 14 Private MD: ED Physician Faustino Singh HPI: 11/26 15:56 This 78 yrs old Female presents to ER via Unassigned with complaints of Fainted, Chest ec2 Pain. 15:56 Patient arrives today for evaluation of a syncopal episode. Patient was supposed to ec2 undergo a cardiac catheterization today, was moving and subsequently syncopized. Patient also complains of chest pain. Reports symptoms have since improved since arrival to the emergency department.. Historical: - Allergies: 15:56 Compazine; kd3 15:56 Levofloxacin; kd3 15:56 Toradol; kd3 - PMHx: 15:56 Anxiety; fluid retention (Anxiety); kd3 - PSHx: 15:56 cardiac stent; Total abdominal hysterectomy; kd3 - Immunization history:: Adult Immunizations up to date. - Social history:: Smoking status: unknown. ROS: 15:56 Constitutional: as per hpi ec2 Exam: 15:56 Constitutional: GEN: NAD Head: atraumatic Eyes: EOMI Ears: External ears are ec2 normal. CV: regular rate LUNGS: no respiratory distress ABD: non-distended SKIN: no evidence of rashes MSK: no evidence of trauma NEURO: moves all extremities equally. Psych: Anxious individual Vital Signs: 16:07 BP 142 / 87; Pulse 84; Resp 18; Pulse Ox 95% on R/A; db 16:15 BP 154 / 82; Pulse 68; Resp 18; Pulse Ox 100% on R/A; db 16:20 BP 142 / 87; Pulse 73; Pulse Ox 100% ; ec2 16:30 BP 145 / 78; Pulse 60; Resp 12; Pulse Ox 100% on R/A; db 16:45 BP 159 / 108; Pulse 59; Resp 18; Pulse Ox 99% on R/A; db 17:45 BP 135 / 70; Pulse 57; Resp 14; Pulse Ox 99% on R/A; me1 18:00 BP 156 / 62; Pulse 56; Resp 15; Pulse Ox 94% on R/A; me1 19:00 BP 126 / 66; Pulse 59; Resp 14; Pulse Ox 100% on R/A; me1 MDM: 15:54 Patient medically screened. ec2 15:56 ED course: Patient arrives today for evaluation of a syncopal episode. Examination ec2 remarkable for well-appearing nontoxic individual is otherwise in no acute distress. Will obtain lab work as well as chest x-ray. EKG already obtained, independently reviewed and interpreted by me, shows atrial flutter with variable conduction. Rate of 71, no acute ST segment elevations, intervals otherwise nonconcerning. Will also obtain CT scan of the head to further investigate the patient's passing out episodes. Patient also noted to be markedly anxious with tremulousness, certainly is not seizure-like activity.. 17:51 Data reviewed: vital signs. ED course: Metabolic profile shows slight hypokalemia with ec2 potassium of 3.4. CBC is reassuring. BNP and troponin within normal ranges. Chest ray shows no acute intrathoracic process. CT scan of the head shows no acute intracranial process. Will admit the patient for syncope and further cardiac evaluation. Discussed case with hospitalist, pending admission. . 11/26 15:54 Order name: Basic Metabolic Panel; Complete Time: 17:51 ec2 11/26 15:54 Order name: CBC with Diff; Complete Time: 17:51 ec2 11/26 15:54 Order name: NT PRO-BNP; Complete Time: 17:51 ec2 11/26 15:54 Order name: Troponin HS; Complete Time: 17:51 ec2 11/26 18:59 Order name: Urinalysis w/ reflexes EDMS 11/26 18:59 Order name: CBC with Automated Diff EDMS 11/26 18:59 Order name: CBC with Automated Diff EDMS 11/26 18:59 Order name: Comprehensive Metabolic Panel EDMS 11/26 18:59 Order name: Comprehensive Metabolic Panel EDMS 11/26 18:59 Order name: Magnesium EDMS 11/26 18:59 Order name: Magnesium EDMS 11/26 18:59 Order name: Phosphorus EDMS 11/26 18:59 Order name: Phosphorus EDMS 11/26 18:59 Order name: Troponin High Sensitivity EDMS 11/26 18:59 Order name: Troponin High Sensitivity EDMS 11/26 18:59 Order name: Troponin High Sensitivity EDMS 11/26 18:59 Order name: Troponin High Sensitivity EDMT 11/26 15:54 Order name: XRAY Chest (1 view); Complete Time: 17:51 ec2 11/26 16:05 Order name: CT Head Brain wo Cont; Complete Time: 17:51 ec2 11/27 08:06 Order name: [facility] 11/26 15:54 Order name: EKG; Complete Time: 15:55 ec2 11/26 18:59 Order name: CONS Physician Consult EDMT 11/26 15:54 Order name: Cardiac monitoring; Complete Time: 16:27 ec2 11/26 15:54 Order name: EKG - Nurse/Tech; Complete Time: 16:02 ec2 11/26 15:54 Order name: IV Saline Lock; Complete Time: 16:42 ec2 11/26 15:54 Order name: Labs collected and sent; Complete Time: 16:42 ec2 11/26 15:54 Order name: O2 Per Protocol; Complete Time: 16:28 ec2 11/26 15:54 Order name: O2 Sat Monitoring; Complete Time: 16:28 ec2 Administered Medications: 16:48 Drug: Aspirin PO Chewable Tablet 324 mg PO once; 81 mg tablets x 4 Route: PO; db 18:08 Follow up: Response: No adverse reaction me1 16:48 Drug: NS 0.9% IV 1000 ml IV at 1 bolus Per protocol; 1000 mL bolus Route: IV; Rate: 1 db bolus; Site: right forearm; 18:30 Follow up: Response: No adverse reaction; IV Status: Completed infusion; IV Intake: me1 1000ml 16:50 Drug: Diazepam IVP 5 mg IVP once Route: IVP; Site: right forearm; db 18:08 Follow up: Response: No adverse reaction; Anxiety decreased me1 Disposition Summary: 11/27/23 17:53 Hospitalization Ordered Notes: Hospitalization Status: Inpatient Admission ec2 Provider: Rylan Sorensen ecJose Antonio Condition: Stable ec2 Problem: new ec2 Symptoms: have improved ec2 Bed/Room Type: Standard ec2 Location: Telemetry/MedSurg (Inpatient)(11/28/23 08:10) bd Room Assignment: 203(11/28/23 08:10) bd Diagnosis - Chest pain, unspecified ec2 - Syncope Near ec2 Forms: - Medication Reconciliation Form ec2 - SBAR form ec2 - Leadership Thank You Letter ec2 Signatures: Dispatcher [employer] EDMS Arleen Herrera bd Radha King RN RN kd3 Adeline Morfin RN RN db Faustino Singh MD MD ec2 Lexi Downing RN me1 Corrections: (The following items were deleted from the chart) 16:05 15:56 ED course: Patient arrives today for evaluation of a syncopal episode. ec2 Examination remarkable for well-appearing nontoxic individual is otherwise in no acute distress. Will obtain lab work as well as chest x-ray. EKG already obtained, independently reviewed and interpreted by me, shows atrial flutter with variable conduction. Rate of 71, no acute ST segment elevations, intervals otherwise nonconcerning.. ec2 16:06 15:56 ED course: Patient arrives today for evaluation of a syncopal episode. ec2 Examination remarkable for well-appearing nontoxic individual is otherwise in no acute distress. Will obtain lab work as well as chest x-ray. EKG already obtained, independently reviewed and interpreted by me, shows atrial flutter with variable conduction. Rate of 71, no acute ST segment elevations, intervals otherwise nonconcerning. Will also obtain CT scan of the head to further investigate the patient's passing out episodes.. ec2 16:06 15:56 Constitutional: GEN: NAD Head: atraumatic Eyes: EOMI Ears: External ears are ec2 normal. CV: regular rate LUNGS: no respiratory distress ABD: non-distended SKIN: no evidence of rashes MSK: no evidence of trauma NEURO: moves all extremities equally ec2 16:10 15:56 Patient arrives today for evaluation of a syncopal episode. Patient was supposed ec2 to undergo a cardiac catheterization today, was moving and subsequently syncopized. Patient also complains of chest pain.. ec2 18:04 17:53 Telemetry/MedSurg (Inpatient) ec2 bd 18:04 17:53 ec2 bd 11/27 08:11/26 18:04 [facility] ER HOLD bd bd 11/27 08:11/26 18:04 ERHOLD- bd bd
--- NOTE | 2023-11-27 18:50 | P.HP ---
Certification for Inpatient Patient admitted to: Observation With expected LOS: <2 Midnights Practitioner: I am a practitioner with admitting privileges, knowledge of patient current condition, hospital course, and medical plan of care. Services: Services provided to patient in accordance with Admission requirements found in Title 42 Section 412.3 of the Code of Federal Regulations Patient History Date of Service: 11/27/23 Reason for admission: Syncope/ CP History of Present Illness: 78 yrs old Female with past medical history of hypertension, hyperlipidemia, CAD, anxiety, possible CHF who presents to ER with chest pain and possible syncopal episode which has been going on for the last 2 days and has been progressively getting worse and was brought to ER . Pain is retrosternal with no radiation not associated with diaphoresis. Denies any fever or chills. No nausea vomiting or diarrhea. Patient was supposed to undergo heart cathete rization today. Patient had a syncopal episode and she passed out with rolling of eyes. Patient is a poor historian hence most of the history is obtained from the chart review and also talking to the family members at the bedside. Denies any trauma. No seizure-like activities. Complains of generalized weakness. No fever or chills. No sick contacts. Patient was assessed in the ER and was admitted for chest pain to rule out ACS and syncopal workup. Patient had a CT of the head which negative for any acute changes Allergies promethazine HCl [From Phenergan] Allergy (Intermediate, Verified 11/27/23 15:11) TWITCHING levofloxacin [From Levaquin] Allergy (Verified 11/27/23 15:11) Hives prochlorperazine maleate [From Compazine] Adverse Reaction (Intermediate, Verified 11/27/23 15:11) restlessness ketorolac [From Toradol] Adverse Reaction (Verified 11/27/23 15:11) Itching Latex, Natural Rubber Adverse Reaction (Verified 11/27/23 15:11) Rash Home medications list reviewed: Yes Home Medications: Prasugrel HCl [Effient] 5 mg PO DAILY 07/19/15 Bumetanide [Bumex] 2 mg PO DAILY 01/25/19 Ondansetron HCl 4 mg PO BID PRN 01/25/19 Valacyclovir HCl [Valacyclovir] 1,000 mg PO DAILY 11/27/23 clonazePAM [Clonazepam] 1 mg PO BIDP PRN 11/27/23 - Past Medical/Surgical History Diabetic: No Past Medical History: Reviewed- Non-Contributory -: Hyperlipidemia -: CAD -: Anxiety -: migraines Past Surgical History: Reviewed- Non-Contributory -: hysterectomy -: L shoulder sx -: R knee sx -: cardiac stent X1 - Family History Family History: Reviewed- Non-Contributory - Family History Mother -: Stroke Father -: Cancer Notes: CHF - Social History Smoking Status: Never smoker Alcohol use: No CD- Drugs: No Caffeine use: No Review of Systems 10-point ROS is otherwise unremarkable Physical Examination - Vital Signs Temperature: 97.8 F Blood Pressure: 132/74 Pulse: 68 Respirations: 18 Pulse Ox (%): 98 - Physical Exam General: Alert, In no apparent distress, Oriented x3 HEENT: Atraumatic, Normocephalic Neck: Supple, 2+ carotid pulse no bruit, No Thyromegaly Respiratory: Clear to auscultation bilaterally, Normal air movement Cardiovascular: Normal pulses, Regular rate/rhythm, Normal S1 S2, No gallops Capillary refill: <2 Seconds Gastrointestinal: Soft and benign, W/out hepatosplenomegaly, No ascites, No tenderness, No rebound Musculoskeletal: No clubbing, No swelling Integumentary: No rashes, No tenderness/swelling Neurological: Normal speech, Normal strength at 5/5 x4 extr, Normal tone, Cranial nerves 3-12 intact Lymphatics: No axilla or inguinal lymphadenopathy - Studies Laboratory Data (last 24 hrs) 11/27/23 11/27/23 16:35 16:35 WBC 5.70 Hgb 12.9 Hct 37.9 Plt Count 265 Sodium 138 Potassium 3.4 L BUN 8 Creatinine 0.84 Glucose 104 Assessment and Plan - Problems (Diagnosis) (1) Chest pain Onset Date: 05/18/16 Current Visit: No Status: Acute Plan: Unstable Angina Will trend cardiac enzymes Will monitor telemetry Started on aspirin and statin EKG did not show any acute changes sinus ST-T suggestive of ischemia Patient denies any chest pain Will get an echocardiogram Cardiology consult Possible C in AM (2) Syncope Onset Date: 10/19/17 Current Visit: No Status: Acute Plan: Monitor closely telemetry Syncopal workup CT head negative for neck distress Monitor closely Will get a carotid Doppler (3) Hypertension Onset Date: 05/18/16 Current Visit: No Status: Chronic Plan: Continue home medications and titrate as needed Qualifiers: Hypertension type: essential hypertension Qualified Code(s): I10 - Essential (primary) hypertension Discharge Plan: Home Plan to discharge in: 48 Hours - Advance Directives Does patient have a Living Will: Yes Does patient have a Durable POA for Healthcare: Yes - Code Status/Comfort Care Code Status: Full Code Time Spent Managing Pts Care (In Minutes): 54
[2023-11-27] MEDS ORDERED: ONDANSETRON 4 MG/2 ML VIAL IV PRN (18:52)
[2023-11-27] MEDS ORDERED: ACETAMINOPHEN 325 MG TABLET PO PRN (18:52)
[2023-11-27 20:21] VITALS: BMI 25.2
[2023-11-27 20:53] LABS: Specific Gravity 1.005 (1.005-1.030); Urine Bilirubin NEGATIVE (Negative); Urine Blood Negative (Negative); Urine Clarity Clear (Clear); Urine Color Colorless (Yellow); Urine Glucose NEGATIVE (Negative); Urine Protein NEGATIVE (Negative); Urine Urobilinogen Normal (Normal); Urine pH 6.5 (5.0-7.0)
[2023-11-27] MEDS: ENOXAPARIN 40 MG/0.4 ML SQ SCH (20:54)
[2023-11-27] MEDS ORDERED: ENOXAPARIN 40 MG/0.4 ML SQ ONE (20:55)
[2023-11-28 04:43] LABS: Albumin 3.3 g/dL (3.4-5.0); Albumin/Globulin Ratio 1.1 (1.1-1.8); Anion Gap 7.7 mEq/L (5.0-15.0); Bilirubin Total 0.5 mg/dL (0.2-1.0); Globulin 3.1 g/dL (2.3-3.5); Phosphorus 3.4 mg/dL (2.5-4.9); Potassium 3.7 mEq/L (3.5-5.1); Protein, Total 6.4 g/dL (6.4-8.2)
[2023-11-28 04:45] LABS: Absolute Basophils 0.1 K/uL (0-0.5); Absolute Eosinophils 0.1 K/uL (0-0.5); Absolute Lymphocytes (CBC) 2.1 K/uL (0.7-4.9); Absolute Monocytes 0.7 K/uL (0.1-1.3); Absolute Neutrophil 3.2 K/uL (1.8-8.0); Basophils % 1.3 % (0-1.3); Eosinophils % 0.9 % (0-4.4); Hematocrit 32.8 % (36.0-45.0); Hemoglobin 11.4 g/dL (12.0-15.0); Lymphocytes % 34.6 % (15.3-44.8); MCH 30.9 pg (27.0-35.0); MCHC 34.7 g/dL (32.0-36.0); MPV 8.8 fL (7.6-11.3); Monocytes % 11.3 % (3.3-12.3); Neutrophils % 51.9 % (41.7-73.7); Platelets 227 thou/uL (152-406); RBC Red Blood Cell Count 3.69 M/uL (3.86-4.86); Red Cell Distribution Width 13.6 % (12.1-15.2)
--- NOTE | 2023-11-28 08:05 | RAD REPORT ---
EXAM DESCRIPTION: USCarotid Artery Bilateral11/27/2023 11:48 pm CLINICAL HISTORY: syncope COMPARISON: None FINDINGS: The velocity of the right internal carotid artery equals 83 cm/sec. The right ICA/CCA rati o normal The velocity of the left internal carotid artery equals 160 cm/sec. The left ICA/CCA ratio 1.7 Moderate plaque within the left carotid bulb Mild plaque within the common carotid, left internal carotid and external carotid arteries The vertebral arteries demonstrate antegrade flow NASCET criteria used. Mild 0-49% stenosis Moderate 50-69% stenosis Severe 70-99% stenosis IMPRESSION: Moderate plaque left carotid bulb results in an approximately 55-60% stenosis
[2023-11-28] MEDS ORDERED: clonazePAM 1 MG TAB ONE (08:57)
[2023-11-28] MEDS ORDERED: ASPIRIN 81 MG CHEWABLE TABLET ONE (08:57)
[2023-11-28] MEDS ORDERED: ENOXAPARIN 40 MG/0.4 ML SQ ONE (08:57)
[2023-11-28] MEDS: VALACYCLOVIR 500 MG TAB PO SCH (09:00)
[2023-11-28] MEDS: ASPIRIN EC 81 MG TAB PO SCH (09:00)
[2023-11-28] MEDS: PRASUGREL (EFFIENT) 10 MG TAB PO SCH (09:00)
[2023-11-28] MEDS: BUMETANIDE 1 MG TABLET PO SCH (09:00)
[2023-11-28] MEDS: clonazePAM 1 MG TAB PO PRN (09:02)
--- NOTE | 2023-11-28 10:40 | P.PN ---
Date of Service: 11/28/23 Subjective: no further syncope events reports some slight chest discomfort no nausea/vomiting afebrile ROS: 10 point ROS as noted above, otherwise negative Physical Exam: GEN: Alert, oriented, NAD, with some baseline confusion/memory issue HEENT: Normal conjunctiva, sclera anicteric, CV: Regular rate and rhythm, no edema Pulm: Nonlabored respirations on room air, clear bilaterally ABD: soft, nontender, nondistended Neuro: Normal speech, normal affect Problem List: Chest Pain Syncope hx CAD s/p PCI (>10 years ago) Hypertension Anxiety Chest Pain Syncope hx CAD s/p PCI (>10 years ago) Patient had syncopal episode yesterday. Was supposed to undergo heart catheterization occurred after blood draw / during pre-op eval suspect vasovagal Recent stress test 10/18/23 was negative for myocardial perfusion defect Carotid u/s (11/26): moderate plaque left carotid bulb ~55-60% stenosis CT head (11/26): No acute intracranial process Troponins negative x3, monitor on telemetry Cardiology consulted continue aspirin, statin NPO for now until seen / eval by cardio for possible LHC was originally scheduled as outpatient yesterday Hypertension confirm home meds, restart as appropriate Anxiety PRN klonopin VTE: Lovenox Code: Full Dispo: Home, 1-2 days pending cardiac recs, possible LHC
[2023-11-28] MEDS: POTASSIUM CL SA 10 MEQ TAB PO ONE (10:49)
--- NOTE | 2023-11-28 13:18 | P.CNS ---
Date of Consult: 11/28/23 Chief Complaint: Syncope/ CP History of Present Illness: patient with PMH of CAD and PCI in the past presented with syncopal episode after getting her blood drawn, she also report this chest pressure sensation since yesterday, denies any other associated symptoms. Allergies promethazine HCl [From Phenergan] Allergy (Intermediate, Verified 11/27/23 15:11) TWITCHING levofloxacin [From Levaquin] Allergy (Verified 11/27/23 15:11) Hives prochlorperazine maleate [From Compazine] Adverse Reaction (Intermediate, Verified 11/27/23 15:11) restlessness ketorolac [From Toradol] Adverse Reaction (Verified 11/27/23 15:11) Itching Latex, Natural Rubber Adverse Reaction (Verified 11/27/23 15:11) Rash Home Medications: Prasugrel HCl [Effient] 5 mg PO DAILY 07/19/15 Bumetanide [Bumex] 2 mg PO DAILY 01/25/19 Ondansetron HCl 4 mg PO BID PRN 01/25/19 Valacyclovir HCl [Valacyclovir] 1,000 mg PO DAILY 11/27/23 clonazePAM [Clonazepam] 1 mg PO BIDP PRN 11/27/23 - Past Medical/Surgical History Diabetic: No -: Hyperlipidemia -: CAD -: Anxiety -: migraines -: hysterectomy -: L shoulder sx -: R knee sx -: cardiac stent X1 - Family History Mother Medical History: Stroke Father Medical History: Cancer Notes: CHF - Social History Smoking Status: Unknown if ever smoked Alcohol use: No CD- Drugs: No Caffeine use: No Place of Residence: Home Review of Systems 10-point ROS is otherwise unremarkable Physical Examination Temp Pulse Resp BP Pulse Ox 97.4 F 59 14 126/66 96 11/28/23 09:00 11/28/23 09:28 11/28/23 09:28 11/28/23 09:28 11/28/23 09:00 General: Alert, Oriented x3 HEENT: Atraumatic Neck: Supple Respiratory: Clear to auscultation bilaterally Cardiovascular: No edema Gastrointestinal: Normal bowel sounds Laboratory Data (last 24 hrs) 11/27/23 11/27/23 16:35 16:35 WBC 5.70 Hgb 12.9 Hct 37.9 Plt Count 265 Sodium 138 Potassium 3.4 L BUN 8 Creatinine 0.84 Glucose 104 - Problems (1) Chest pain Onset Date: 07/21/15 Current Visit: No Status: Acute Plan: concerns for angina with history of abnormal outpatient stress test will plan for coronary angiogram. (2) Syncope Onset Date: 10/19/17 Current Visit: No Status: Acute Plan: most likely vasovagal after drawing her blood, continue to monitor on tele.
[2023-11-28] MEDS: NA CHLORIDE 0.9% 500 ML ONE (15:15)
[2023-11-28] MEDS ORDERED: VERAPAMIL HCL 10 MG/4 ML VIAL IV ONE (15:37)
[2023-11-28] MEDS ORDERED: LIDOCAINE 1% MPF 30 ML VIAL ONE (15:37)
[2023-11-28] MEDS ORDERED: HEPARIN 5000 UNIT/ML 1 ML VIAL ONE (15:37)
[2023-11-28] MEDS ORDERED: HEPA 1000U/500MLS 2,000 UNIT/1,000 ML BAG IV ONE (15:37)
[2023-11-28] MEDS ORDERED: MIDAZOLAM HCL 2 MG/2 ML INJ ONE (16:26)
[2023-11-28] MEDS ORDERED: FENTANYL CITR 100 MCG/2 ML ONE (16:26)
[2023-11-28] MEDS ORDERED: HEPARIN 10,000 UNIT/10 ML VIAL IV ONE (16:29)
[2023-11-28] MEDS ORDERED: TICAGRELOR 90 MG TABLET PO ONE (17:11)
[2023-11-28] MEDS ORDERED: ASPIRIN 325 MG TAB ONE (17:12)
--- NOTE | 2023-11-28 17:33 | OP ---
Date of Procedure: 11/28/2023 Surgeon: COMPA BOOGIE Procedures Performed: 1.Selective coronary angiogram. 2.Left heart catheterization. Indication: Unstable angina. Access: Right radial artery 6-Iraqi closed with TR band. Complications: None. Bleeding: Less than 50 mL. Anesthesia: Total sedation time was 30 minutes. Description Of Procedure: After risks, benefits, and alternatives were explained, patient agreed to procedure and signed informed consent. The patient was brought to cardiac catheterization laboratory , prepped and draped in usual sterile fashion. Then, I accessed right radial artery using pediatric micropuncture kit, placed a 6-Iraqi Slender sheath. Took 5-Iraqi [place] 4.0 catheter over J-wire in to the aortic root, engaged left main, and then the RCA, took standard views. Catheter was pushed ov er the wire into the LV, measured the LVEDP. Pullback did not record any gradient, then removed the catheter and the sheath, placed TR band with good hemostasis. Findings: 1.Left main: Normal. 2.LAD: Proximal LAD stent with diffuse 20% to 30% ISR, that is widely patent. 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 Diagonal bran ches are with luminal irregularities. 3.Left circumflex: Moderate size, normal. 4.RCA: Large and dominant and normal. 5.Normal LVEDP at 9 mmHg. 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 2.Normal LVEDP. Recommendation: Medical management. SR/MODL Voice ID: [id number] Report ID: [id number]
[2023-11-28] MEDS: ATORVASTATIN 40 MG TAB PO SCH (19:58)
[2023-11-29] MEDS: ACETAMINOPHEN 325 MG TABLET PO PRN (03:27)
[2023-11-29 04:00] LABS: Anion Gap 7.3 mEq/L (5.0-15.0); Magnesium 2.1 mg/dL (1.6-2.4); Potassium 4.3 mEq/L (3.5-5.1)
[2023-11-29 06:28] VITALS: BP 152/68; TEMP 98.6
[2023-11-29 08:02] VITALS: O2SAT 94
[2023-11-29] MEDS: PRASUGREL 5 MG PO SCH (08:11)
--- NOTE | 2023-11-29 08:43 | P.PN ---
Subjective Date of Service: 11/29/23 Chief Complaint: Syncope/ CP Subjective: No new changes Review of Systems 10-point ROS is otherwise unremarkable Physical Examination - Vital Signs Temperature: 98.6 F Blood Pressure: 152/68 Pulse: 61 Respirations: 16 Pulse Ox (%): 97 - Physical Exam General: Alert HEENT: Atraumatic Neck: Supple Respiratory: Clear to auscultation bilaterally Cardiovascular: No edema, Normal S1 S2 Gastrointestinal: Normal bowel sounds Assessment And Plan - Current Problems (Diagnosis) (1) Chest pain Onset Date: 07/21/15 Current Visit: No Status: Acute Plan: concerns for angina with history of abnormal outpatient stress test Patient had coronary angiogram that shows mild CAD with patent LAD stent continue ASA 81 mg daily no further cardiac work up needed. (2) Syncope Onset Date: 10/19/17 Current Visit: No Status: Acute Plan: most likely vasovagal after drawing her blood, continue to monitor on tele.
--- NOTE | 2023-11-29 08:50 | P.DS ---
Admission Date: 11/27/23 Discharge Date: 11/29/23 Disposition: ROUTINE DISCHARGE Discharge Condition: GOOD Reason for Admission: Syncope/ CP Consultations: Cardiology - Dr. Cottrell Brief History of Present Illness: 78 yo F, PMH: hypertension, hyperlipidemia, CAD, anxiety, possible CHF Patient who presents to ER with chest pain and possible syncopal episode which has been going on for the last 2 days and has been progressively getting worse and was brought to ER . Pain is retrosternal with no radiation not associated with diaphoresis. Denies any fever or chills. No nausea vomiting or diarrhea. Patient was supposed to undergo heart catheterization today. Patient had a syncopal episode and she passed out with rolling of eyes. Patient is a poor historian hence most of the history is obtained from the chart review and also talking to the family members at the bedside. Denies any trauma. No seizure- like activities. Complains of generalized weakness. No fever or chills. No sick contacts. Patient was assessed in the ER and was admitted for chest pain to rule out ACS and syncopal workup. Patient had a CT of the head which negative for any acute changes Hospital Course: Problem List: Chest Pain Syncope, suspect vasovagal hx CAD s/p PCI (>10 years ago) Hypertension Anxiety Patient presented to ED after syncopal episode and chest pain while undergoing preop evaluation / blood drawn for a planned heart catheterization. Suspect syncopal episode secondary to vasovagal syncope with some component of mild dehydration. CT head was negative for any acute findings. Carotid ultrasound noted moderate plaque left carotid bulb with ~55-60% stenosis, not necessitating intervention. Troponins were negative. Urinalysis was unremarkable. Cardiology was consulted. 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 No intervention or change in medications needed. No further cardiac workup this hospitalization. Discussed with cardiology who recommended patient follow up in office in ~1-2 weeks for further management. Patient was feeling better, back to her normal self, and was deemed stable for discharge home. Advised patient to remain adequately hydrated. Discussed if has a repeat milder episode to maintain a diary to help with follow up with her physicians to see if there is a common thread. Medications: no change in medications. Follow up: PCP 3-5 days Cardiology 1-2 weeks Physical Exam: GEN: Alert, oriented, NAD, with some baseline confusion/memory issue HEENT: Normal conjunctiva, sclera anicteric, CV: Regular rate and rhythm, no edema Pulm: Nonlabored respirations on room air, clear bilaterally ABD: soft, nontender, nondistended Neuro: Normal speech, normal affect Vital Signs/Physical Exam: Temp Pulse Resp BP Pulse Ox 98.6 F 61 16 152/68 H 97 11/29/23 08:43 11/29/23 08:43 11/29/23 08:43 11/29/23 08:43 11/29/23 08:43 Laboratory Data at Discharge: WBC 6.10 thou/uL (4.3-10.9) 11/28/23 04:09 Hgb 11.4 g/dL (12.0-15.0) L D 11/28/23 04:09 Hct 32.8 % (36.0-45.0) L 11/28/23 04:09 Plt Count 227 thou/uL (152-406) 11/28/23 04:09 Sodium 141 mEq/L (136-145) 11/29/23 02:55 Potassium 4.3 mEq/L (3.5-5.1) D 11/29/23 02:55 BUN 18 mg/dL (7-18) 11/29/23 02:55 Creatinine 0.78 mg/dL (0.55-1.02) 11/29/23 02:55 Glucose 104 mg/dL (74-106) 11/29/23 02:55 Phosphorus 3.4 mg/dL (2.5-4.9) 11/28/23 04:09 Magnesium 2.1 mg/dL (1.6-2.4) 11/29/23 02:55 Total Bilirubin 0.5 mg/dL (0.2-1.0) 11/28/23 04:09 AST 14 U/L (15-37) L 11/28/23 04:09 ALT 18 U/L (13-56) 11/28/23 04:09 Alkaline Phosphatase 67 U/L (45-117) 11/28/23 04:09 Home Medications: Prasugrel HCl [Effient] 5 mg PO DAILY 07/19/15 Bumetanide [Bumex] 2 mg PO DAILY 01/25/19 Ondansetron HCl 4 mg PO BID PRN 01/25/19 Valacyclovir HCl [Valacyclovir] 1,000 mg PO DAILY 11/27/23 clonazePAM [Clonazepam] 1 mg PO BIDP PRN 11/27/23 Physician Discharge Instructions: Physician Discharge Instructions: Patient presented to ED after syncopal episode and chest pain while undergoing preop evaluation / blood drawn for a planned heart catheterization. Suspect syncopal episode secondary to vasovagal syncope with some component of mild dehydration. CT head was negative for any acute findings. Carotid ultrasound noted moderate plaque left carotid bulb with ~55-60% stenosis, not necessitating intervention. Troponins were negative. Urinalysis was unremarkable. Cardiology was consulted. 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 No intervention or change in medications needed. No further cardiac workup this hospitalization. Discussed with cardiology who recommended patient follow up in office in ~1-2 weeks for further management. Patient was feeling better, back to her normal self, and was deemed stable for discharge home. Advised patient to remain adequately hydrated. Discussed if has a repeat milder episode to maintain a diary to help with follow up with her physicians to see if there is a common thread. Medications: no change in medications. Follow up: PCP 3-5 days Cardiology 1-2 weeks Followup: Speedy Krause DO, DO [Primary Care Provider] - Time spent managing pt's care (in minutes): 45
[2023-11-29] MEDS ORDERED: PRASUGREL 5 MG PO SCH (09:00)
== END 2023-11-29 10:43 | disposition home or self-care (01) | DRG 287 ==
LOC: ER 15:43 → ERHOLD 18:52 → 2ND 11-28 08:14 → OBSVTOIN 11-29 10:03
PROVIDERS: ADMIT Family Medicine; ATTEND Hospitalist
PROC: B2111ZZ Fluoroscopy of Multiple Coronary Arteries using Low Osmolar Contrast (ICD-10-PCS; principal; 2023-11-28)
PROC: 4A023N7 Measurement of Cardiac Sampling and Pressure, Left Heart, Percutaneous Approach (ICD-10-PCS; 2023-11-28)
DX: I25.110 Atherosclerotic heart disease of native coronary artery with unstable angina pectoris (principal); E86.0 Dehydration; I10 Essential (primary) hypertension; E78.5 Hyperlipidemia, unspecified; E87.6 Hypokalemia; F41.9 Anxiety disorder, unspecified; R55 Syncope and collapse; Z88.5 Allergy status to narcotic agent; Z88.1 Allergy status to other antibiotic agents; Z95.5 Presence of coronary angioplasty implant and graft; Z90.710 Acquired absence of both cervix and uterus; Z79.899 Other long term (current) drug therapy; Z91.040 Latex allergy status
CPT/HCPCS: 36415; 70450; 71045; 76937; 80048; 80053; 81003; 83735; 83880; 84100; 84484; 85025; 93005; 93458; 93880; 94760; 96361; 96374; 99152; 99153; 99285; C1893; G0378; J1644; J1650; J2001; J2250; J3010; J3360; J7030; J7040; Q9966

== ENCOUNTER → 2023-12-03 | Emergency (ER) | payer OTHER ==
[~2023-12-03] MED LIST: FENTANYL CITR 100 MCG/2 ML ONE; HYDROCODONE/APAP 5/325 MG TAB ONE; NA CHLORIDE 0.9% 0 ML ONE; NA CHLORIDE 0.9% 500 ML ONE; ONDANSETRON 4 MG/2 ML VIAL ONE
--- OUTSIDE RECORDS SUMMARY | 2023-12-03 18:11 | XMS REPORT | Continuity of Care Document ---
Author Name Unknown Address [address] [place] [address] [facility] Address [address] [place] [address] Care Team Providers Care Medical Office Administrator Name Role Phone Unavailable Unavailable Unavailable
--- NOTE | 2023-12-03 19:50 | RAD REPORT ---
EXAM DESCRIPTION: US - Extremity Nonvascular Complete - 12/03/2023 7:16 pm CLINICAL HISTORY: Bruising, hematoma, recent cath COMPARISON: None. TECHNIQUE: Real-time sonographic evaluation of the right upper extremity in the areas of concern, in cluding grayscale and color flow imaging evaluation was performed. FINDINGS: Subcutaneous edema along the distal forearm in the area of concern. No appreciable fluid c ollections. Triangular deep fluid collection noted in the area of concern overlying the right shoulder measuring 2.4 x 1.4 x 0.8 cm. IMPRESSION: Triangular deep fluid collection in the area of concern overlying the right shoulder up to 2.4 cm, could relate to bursal distention or joint effusion. No appreciable fluid collection or other focal abnormality in the area of concern in the distal forea rm.
[2023-12-03 20:27] LABS: Absolute Basophils 0.1 K/uL (0-0.5); Absolute Eosinophils 0.1 K/uL (0-0.5); Absolute Lymphocytes (CBC) 1.7 K/uL (0.7-4.9); Absolute Monocytes 0.6 K/uL (0.1-1.3); Absolute Neutrophil 4.5 K/uL (1.8-8.0); Eosinophils % 0.8 % (0-4.4); Hematocrit 37.3 % (36.0-45.0); Hemoglobin 12.6 g/dL (12.0-15.0); Lymphocytes % 24.1 % (15.3-44.8); MCH 30.3 pg (27.0-35.0); MCHC 33.8 g/dL (32.0-36.0); MCV 89.6 fL (80-100); MPV 8.7 fL (7.6-11.3); Monocytes % 9.2 % (3.3-12.3); Neutrophils % 64.9 % (41.7-73.7); Nucleated Red Blood Cells % 0.1 % (0-0); Platelets 256 thou/uL (152-406); RBC Red Blood Cell Count 4.16 M/uL (3.86-4.86)
[2023-12-03 20:35] LABS: PTT, Activated Partial Thromb 30.8 SECONDS (24.3-36.9); Protime INR 0.91
[2023-12-03 20:46] LABS: ALT/SGPT 26 U/L (13-56); AST/SGOT 22 U/L (15-37); Albumin 3.9 g/dL (3.4-5.0); Alkaline Phosphatase 82 U/L (45-117); BUN Blood Urea Nitrogen 18 mg/dL (7-18); Bicarbonate 28 mEq/L (21-32); Bilirubin Total 0.3 mg/dL (0.2-1.0); Glomerular Filtration Rate 68 ml/min (=/>90); Glucose Level 104 mg/dL (74-106); Protein, Total 7.9 g/dL (6.4-8.2); Sodium Level 138 mEq/L (136-145); Troponin High Sensitivity 3.8 pg/mL (<58.9)
[2023-12-03 20:47] LABS: Bilirubin Direct < 0.1 mg/dL (0-0.2); Bilirubin Indirect, Calculated ND mg/dL (0.2-0.8)
--- NOTE | 2023-12-03 22:17 | RAD REPORT ---
EXAM DESCRIPTION: RADChest Single View12/03/2023 9:08 pm CLINICAL HISTORY: syncope COMPARISON: Chest Single View dated 11/27/2023; Chest Single View dated 10/17/2023; Chest Single View dated 06/01/2019; Chest Single View dated 01/25/2019 TECHNIQUE: Portable AP view of the chest. FINDINGS: The lungs are clear. No pneumothorax or effusion. The cardiomediastinal contours are unre markable. Deformity of the left femoral head, stable. IMPRESSION: No acute cardiopulmonary process.
--- NOTE | 2023-12-03 22:32 | ER ---
Nurse's Notes [facility] Name: Mariana Flor Age: 78 yrs Sex: Female : 1945 Arrival Date: 12/03/2023 Time: 18:07 Bed 19 Private MD: Diagnosis: Syncope Near;Bruising to right wrist s/p heart cath Presentation: 12/02 18:24 Chief complaint: Worsening bruising and swelling to right forearm cardiac cath site. hb Coronavirus screen: At this time, the client does not indicate any symptoms associated with coronavirus-19. Ebola Screen: No symptoms or risks identified at this time. Initial Sepsis Screen: Does the patient meet any 2 criteria? No. Patient's initial sepsis screen is negative. Does the patient have a suspected source of infection? No. Patient's initial sepsis screen is negative. Risk Assessment: Do you want to hurt yourself or someone else? Patient reports no desire to harm self or others. Onset of symptoms was December 03, 2023. 18:24 Method Of Arrival: Ambulatory hb 18:26 Acuity: [id number] 3 hb Triage Assessment: 18:27 General: Appears in no apparent distress. Behavior is calm, cooperative. Pain: Pain hb currently is 9 out of 10 on a pain scale. Neuro: Level of Consciousness is awake, alert, obeys commands, Oriented to person, place, time, situation. Cardiovascular: Patient's skin is warm and dry. Respiratory: Respiratory effort is even, unlabored, Respiratory pattern is regular, symmetrical. Historical: - Allergies: 18:25 Compazine; hb 18:25 Levofloxacin; hb 18:25 Toradol; hb - Home Meds: 18:25 Bumex Oral [Active]; Doxycycline Oral [Active]; Doxycycline Oral [Active]; Klonopin hb Oral [Active]; - PMHx: 18:25 Anxiety; fluid retention (Anxiety); hb - PSHx: 18:25 cardiac stent; Total abdominal hysterectomy; hb - Immunization history:: Adult Immunizations up to date. - Social history:: Smoking status: Patient denies any tobacco usage or history of. Screenin:15 [facility] ED Fall Risk Assessment (Adult) History of falling in the last 3 months, jw7 including since admission No falls in past 3 months (0 pts) Confusion or Disorientation No (0 pts) Intoxicated or Sedated No (0 pts) Impaired Gait Yes (1 pt) Mobility Assist Device Used No (0 pt) Altered Elimination No (0 pt) Score/Fall Risk Level 0 - 2 = Low Risk Oriented to surroundings, Maintained a safe environment, Educated pt \T\ family on fall prevention, incl call for assistance when getting out of bed. Abuse screen: Denies threats or abuse. Denies injuries from another. Nutritional screening: No deficits noted. Tuberculosis screening: No symptoms or risk factors identified. Assessment: 19:15 General: Appears in no apparent distress. comfortable, Behavior is calm, cooperative. jw7 Pain: Complains of pain in right arm Pain does not radiate. Pain currently is 9 out of 10 on a pain scale. Is continuous. Neuro: Level of Consciousness is awake, alert, obeys commands, Oriented to person, place, time, situation. Cardiovascular: Heart tones S1 S2 present Capillary refill < 3 seconds Clubbing of nail beds is absent JVD is absent Patient's skin is warm and dry. Respiratory: Airway is patent Trachea midline Respiratory effort is even, unlabored, Respiratory pattern is regular, symmetrical, Breath sounds are clear bilaterally. GI: Abdomen is non-distended, Bowel sounds present X 4 quads. Abd is soft and non tender X 4 quads. : No deficits noted. No signs and/or symptoms were reported regarding the genitourinary system. EENT: No deficits noted. No signs and/or symptoms were reported regarding the EENT system. Derm: Skin is intact, is healthy with good turgor, Skin is dry, Skin is normal, Skin temperature is warm. Musculoskeletal: Circulation, motion, and sensation intact. Range of motion: intact in all extremities. 20:00 Reassessment: Patient appears in no apparent distress at this time. No changes from jw7 previously documented assessment. Patient and/or family updated on plan of care and expected duration. Pain level reassessed. Patient is alert, oriented x 3, equal unlabored respirations, skin warm/dry/pink. 21:00 Reassessment: Patient appears in no apparent distress at this time. No changes from jw7 previously documented assessment. Patient and/or family updated on plan of care and expected duration. Pain level reassessed. Patient is alert, oriented x 3, equal unlabored respirations, skin warm/dry/pink. 22:00 Reassessment: Patient appears in no apparent distress at this time. Patient and/or jw7 family updated on plan of care and expected duration. Pain level reassessed. Patient is alert, oriented x 3, equal unlabored respirations, skin warm/dry/pink. Patient states feeling better. 23:10 Reassessment: Patient appears in no apparent distress at this time. No changes from jw7 previously documented assessment. Patient and/or family updated on plan of care and expected duration. Pain level reassessed. Patient is alert, oriented x 3, equal unlabored respirations, skin warm/dry/pink. Vital Signs: 18:26 BP 165 / 105; Pulse 78; Resp 16; Temp 98.4; Pulse Ox 100% on R/A; Weight 62.6 kg; hb Height 5 ft. 2 in. ; Pain 9/10; 19:00 BP 148 / 70; Pulse 58; Resp 16 S; Pulse Ox 98% on R/A; jw7 21:20 BP 143 / 63 LA Supine (man/reg); Pulse 65 MON; Resp 19 S; Pulse Ox 100% on R/A; jw7 21:23 BP 172 / 71 LA Sitting (man/reg); Pulse 65 MON; Resp 20 S; Pulse Ox 99% on R/A; jw7 21:26 BP 155 / 67 LA Standing (man/reg); Pulse 62 MON; Resp 17 S; Pulse Ox 100% on R/A; jw7 22:15 BP 135 / 62; Pulse 55; Resp 18 S; Pulse Ox 97% on R/A; jw7 23:00 BP 151 / 67; Pulse 51; Resp 16 S; Pulse Ox 99% on R/A; jw7 18:26 Body Mass Index 25.24 (62.60 kg, 157.48 cm) hb 18:26 Pain Scale: Adult hb 21:26 Started getting dizzy upon standing jw7 ED Course: 18:10 Patient arrived in ED. im 18:19 Katlin Talley FNP-C is PHCP. kb 18:19 Kayleigh Batista MD is Attending Physician. kb 18:26 Arm band placed on. hb 18:27 Triage completed. hb 19:07 Destinee Guzmán, JAYRO is Primary Nurse. jw7 19:15 Patient has correct armband on for positive identification. Bed in low position. Call jw light in reach. Side rails up X2. Provided Education on: Use of Call Light. Door closed. Noise minimized. Warm blanket given. Family accompanied patient. 19:18 Extremity Nonvascular Complete In Process Unspecified. EDMS 19:32 Assisted to bathroom. ty 20:21 awake overnight monitor on. ty 20:22 Initial lab(s) drawn, by me, sent to lab. EKG done, by ED staff, reviewed by Katlin MARTINEZ. Inserted saline lock: 22 gauge in left forearm, using aseptic technique. Blood collected. 21:10 Chest Single View XRAY In Process Unspecified. EDMS 23:12 No provider procedures requiring assistance completed. IV discontinued, intact, jw7 bleeding controlled, No redness/swelling at site. Pressure dressing applied. Administered Medications: 20:10 Drug: HYDROcodone-acetaminophen PO 5 mg-325 mg 1 tabs PO once Route: PO; jw7 23:13 Follow up: Response: No adverse reaction; No change in condition jw7 21:30 Drug: NS 0.9% IV 500 ml IV at bolus once Route: IV; Rate: bolus; Site: left forearm; jw7 23:13 Follow up: Response: No adverse reaction; IV Status: Completed infusion; IV Intake: jw7 500ml 21:31 Drug: fentaNYL (PF) IVP 25 mcg IVP once Route: IVP; Site: left forearm; jw7 23:13 Follow up: Response: No adverse reaction; Marked relief of symptoms jw7 21:31 Drug: Ondansetron IVP 4 mg IVP once; over 2 minutes Route: IVP; Site: left forearm; jw7 23:13 Follow up: Response: No adverse reaction; Marked relief of symptoms jw7 Medication: 23:13 VIS not applicable for this client. jw7 Intake: 23:13 IV: 500ml; Total: 500ml. jw7 Outcome: 22:32 Discharge ordered by MD. caceres 23:12 Discharged to home via wheelchair, jw7 23:12 Condition: stable 23:12 Discharge instructions given to patient, family, Instructed on discharge instructions, follow up and referral plans. Demonstrated understanding of instructions, follow-up care, 23:13 Patient left the ED. jw7 Signatures: Dispatcher [employer] EDTX Katlin Talley FNP-C FNP-Bindu Montanez RN RN Destinee Montalvo RN RN jw7 Kimi Bowman Tylor ty
--- NOTE | 2023-12-03 22:32 | EDPHYS ---
Physician Documentation [facility] Name: Mariana Flor Age: 78 yrs Sex: Female : 1945 Arrival Date: 12/03/2023 Time: 18:07 Bed 19 Private MD: ED Physician Kayleigh Batista HPI: 12/02 23:47 This 78 yrs old Female presents to ER via Ambulatory with complaints of Arm Problem - kb Right arm heart cath done on 11/29/23. 23:47 Patient is a 78-year-old female who had a heart cath 5 days ago and is brought in today kb for increased bruising. Family states they took the dressing off yesterday and she did not have as much bruising as she does today. Patient denies shortness of breath, chest pain. Historical: - Allergies: 18:25 Compazine; hb 18:25 Levofloxacin; hb 18:25 Toradol; hb - Home Meds: 18:25 Bumex Oral [Active]; Doxycycline Oral [Active]; Doxycycline Oral [Active]; Klonopin hb Oral [Active]; - PMHx: 18:25 Anxiety; fluid retention (Anxiety); hb - PSHx: 18:25 cardiac stent; Total abdominal hysterectomy; hb - Immunization history:: Adult Immunizations up to date. - Social history:: Smoking status: Patient denies any tobacco usage or history of. ROS: 23:47 Constitutional: As per HPI kb Exam: 23:47 Constitutional: This is a well developed, well nourished patient who is awake, alert, kb and in no acute distress. Head/Face: Normocephalic, atraumatic. ENT: Moist Mucous membranes Cardiovascular: Regular rate Respiratory: Respirations even and unlabored. No increased work of breathing. Talking in full sentences Abdomen/GI: Soft, non-tender. No distention MS/ Extremity: Pulses equal, no cyanosis. Neurovascular intact. Full, normal range of motion. Neuro: Awake and alert, GCS 15, oriented to person, place, time, and situation. Moves all extremities. Normal gait. 23:47 Skin: Ecchymosis to right wrist without erythema, edema or warmth.. Vital Signs: 18:26 BP 165 / 105; Pulse 78; Resp 16; Temp 98.4; Pulse Ox 100% on R/A; Weight 62.6 kg; hb Height 5 ft. 2 in. ; Pain 9/10; 19:00 BP 148 / 70; Pulse 58; Resp 16 S; Pulse Ox 98% on R/A; jw7 21:20 BP 143 / 63 LA Supine (man/reg); Pulse 65 MON; Resp 19 S; Pulse Ox 100% on R/A; jw7 21:23 BP 172 / 71 LA Sitting (man/reg); Pulse 65 MON; Resp 20 S; Pulse Ox 99% on R/A; jw7 21:26 BP 155 / 67 LA Standing (man/reg); Pulse 62 MON; Resp 17 S; Pulse Ox 100% on R/A; jw7 22:15 BP 135 / 62; Pulse 55; Resp 18 S; Pulse Ox 97% on R/A; jw7 23:00 BP 151 / 67; Pulse 51; Resp 16 S; Pulse Ox 99% on R/A; jw7 18:26 Body Mass Index 25.24 (62.60 kg, 157.48 cm) hb 18:26 Pain Scale: Adult hb 21:26 Started getting dizzy upon standing jw7 MDM: 18:19 Patient medically screened. kb 20:00 ED course: Patient became dizzy and felt faint during and after ultrasound. States she kb ambulated to the restroom after she was brought back to the room and was still feeling dizzy upon ambulation and changing position. Will order labs and EKG. 23:44 Differential diagnosis: Hematoma, abscess. Data reviewed: vital signs, nurses notes. kb Historians other than the Patient: Daughter/Son: Daughter. Counseling: I had a detailed discussion with the patient and/or guardian regarding the historical points, exam findings, and any diagnostic results supporting the discharge/admit diagnosis, lab results, radiology results, the need for outpatient follow up, a family practitioner, to return to the emergency department if symptoms worsen or persist or if there are any questions or concerns that arise at home. ED course: All results discussed with patient and family. Patient states she feeling better after fluids. Daughter reports she has increased her Klonopin to twice a day from once a day because patient has been more anxious than normal so she believes this has something to do with the dizziness. States patient has been more anxious than normal as well. Agrees with outpatient follow-up.. 12/02 20:02 Order name: Basic Metabolic Panel; Complete Time: 20:48 kb 12/02 20:02 Order name: CBC with Diff; Complete Time: 20:41 kb 12/02 20:02 Order name: Hepatic Function; Complete Time: 20:48 kb 12/02 20:02 Order name: Magnesium; Complete Time: 20:48 kb 12/02 20:02 Order name: Protime (+inr); Complete Time: 20:41 kb 12/02 20:02 Order name: Ptt, Activated; Complete Time: 20:41 kb 12/02 20:02 Order name: Troponin High Sensitivity; Complete Time: 20:48 kb 12/02 18:40 Order name: Extremity Nonvascular Complete; Complete Time: 19:53 EDMS 12/02 20:02 Order name: Chest Single View XRAY; Complete Time: 22:22 kb 12/02 20:02 Order name: EKG; Complete Time: 20:04 kb 12/02 20:02 Order name: Cardiac monitoring; Complete Time: 20:21 kb 12/02 20:02 Order name: EKG - Nurse/Tech; Complete Time: 20:21 kb 12/02 20:02 Order name: IV Saline Lock; Complete Time: 20:21 kb 12/02 20:02 Order name: Labs collected and sent; Complete Time: 20:21 kb 12/02 20:02 Order name: NPO; Complete Time: 20:03 kb 12/02 20:02 Order name: O2 Per Protocol; Complete Time: 20:03 kb 12/02 20:02 Order name: O2 Sat Monitoring; Complete Time: 20:03 kb 12/02 20:02 Order name: Orthostatics; Complete Time: 21:34 kb Administered Medications: 20:10 Drug: HYDROcodone-acetaminophen PO 5 mg-325 mg 1 tabs PO once Route: PO; jw7 23:13 Follow up: Response: No adverse reaction; No change in condition jw7 21:30 Drug: NS 0.9% IV 500 ml IV at bolus once Route: IV; Rate: bolus; Site: left forearm; jw7 23:13 Follow up: Response: No adverse reaction; IV Status: Completed infusion; IV Intake: jw7 500ml 21:31 Drug: fentaNYL (PF) IVP 25 mcg IVP once Route: IVP; Site: left forearm; jw7 23:13 Follow up: Response: No adverse reaction; Marked relief of symptoms jw7 21:31 Drug: Ondansetron IVP 4 mg IVP once; over 2 minutes Route: IVP; Site: left forearm; jw7 23:13 Follow up: Response: No adverse reaction; Marked relief of symptoms jw7 Disposition Summary: 12/03/23 22:32 Discharge Ordered Notes: Location: Home kb Condition: Stable kb Diagnosis - Syncope Near kb - Bruising to right wrist s/p heart cath kb Followup: kb - With: Emergency Department - When: As needed - Reason: Worsening of condition Followup: kb - With: Private Physician - When: 2 - 3 days - Reason: Recheck today's complaints, Continuance of care, Re-evaluation by your physician Discharge Instructions: - Discharge Summary Sheet kb - Near-Syncope, [id number] kb Forms: - Medication Reconciliation Form kb - Thank You Letter kb - Antibiotic Education kb - Prescription Opioid Use kb - Patient Portal Instructions kb - Leadership Thank You Letter kb Signatures: Dispatcher [employer] EDKatlin Fuller, INCLUSION PARAEDUCATOR-C INCLUSION PARAEDUCATOR-Bindu Montanez, RN RN Destinee Guzmán, RN RN jw7 Corrections: (The following items were deleted from the chart) 18:40 18:27 Lower Extremity Artery [id number] ordered. [facility]
[2023-12-03 23:39] VITALS: BP 151/67; TEMP 98.4; O2SAT 99
--- NOTE | 2023-12-04 14:24 | EKG ---
Test Date: 2023-12-03 Test Time: 20:13:10 Math Instructor: MARYAM MEASUREMENT RESULTS: Intervals: Rate: 59 IL: 152 QRSD: 122 QT: 464 QTc: 459 Cubero: P: 66 IL: 152 QRS: 78 T: 47 INTERPRETIVE STATEMENTS: Sinus bradycardia RSR' or QR pattern in V1 suggests right ventricular conduction delay Borderline ECG Compared to ECG 11/27/2023 15:19:31 No significant changes Electronically Signed On 12-04-23 14:23:34 CDT by Abdullahi Cottrell
== END ==
LOC: ER 18:07
DX: R55 Syncope and collapse (principal); L76.32 Postprocedural hematoma of skin and subcutaneous tissue following other procedure; Z98.61 Coronary angioplasty status; Z88.1 Allergy status to other antibiotic agents; Z88.5 Allergy status to narcotic agent
CPT/HCPCS: 96361; 93005; 85025; 80048; 36415; 83735; 85610; 80076; 85730; 84484; 71045; 76881; 96375; 96374; 99285; J3010; J2405; J7040